=== PATIENT | female | born 1935 | race Caucasian/White ===

== ENCOUNTER 2023-04-27 05:58 | Day surgery (SDC) | payer OTHER, SELFPAY ==
[2023-04-22 13:04] VITALS: BMI 28.7
[2023-04-22 13:41] LABS: % Basophils 0.5 % (0-2); % Eosinophils 1.8 % (0-6); % Immature Granulocytes 0.3 % (0-0.5); % Monocytes 7.1 % (1.7-9.3); % Neutrophils 68.3 % (42.2-75.2); Absolute Eosinophils 0.1 10^3/uL (0-0.7); Absolute Lymphocytes 1.4 10^3/uL (1.2-3.4); Absolute Monocytes 0.4 10^3/uL (0.1-0.6); Absolute Neutrophils 4.2 10^3/uL (1.4-6.5); Hematocrit 34.3 % (37.0-47.0); Hemoglobin 11.5 g/dL (12.0-16.0); Mean Corp Hgb Conc. 33.5 g/dL (33.0-37.0); Mean Corpuscular Hgb 31.1 pg (27.0-31.0); Mean Corpuscular Volume 92.7 fL (81.0-99.0); Mean Platelet Volume 10.6 fL (7.4-10.4); Nucleated Red Blood Cells % 0 %; Platelet Count 223 10^3/uL (130-400); Red Cell Dist. Width 13.1 % (11.5-14.5); White Blood Cell Count 6.2 10^3/uL (4.8-10.8)
[2023-04-22 13:53] LABS: ALT (SGPT) 18 U/L (0-35); AST (SGOT) 33 U/L (14-36); Albumin 4.3 g/dl (3.5-5.0); Alkaline Phosphatase 84 U/L (38-126); Blood Urea Nitrogen 25 mg/dl (7-17); Calcium 9.4 mg/dl (8.4-10.2); Carbon Dioxide 31 mmol/L (22-30); Chloride 102 mmol/L (98-107); Estimated Creatinine Clearance 29 ml/min; Glucose 100 mg/dl (70-99); Potassium 4.1 mmol/L (3.5-5.1); Sodium 136 mmol/L (135-145); Total Bilirubin 0.7 mg/dl (0.2-1.3); Total Protein 6.9 g/dl (6.3-8.2); eGFR 36.87
[2023-04-27] VITALS (10 sets, daily range): BP systolic 91–163; BP diastolic 47–79; BMI 27.5
[2023-04-27] MEDS: NSS 231 ML IV (06:50)
[2023-04-27] MEDS: LOW STRENGTH ASPIRIN 81 MG PO (06:52)
[2023-04-27 07:16] LABS: Glucose - Point of Care 107 mg/dl (70-99)
--- NOTE | 2023-04-27 08:44 | ITS.CL.CATH ---
Marriage Counselor Minister - Catheterization
Cardiac Catheterization
Procedure Report:
CARDIAC CATHETERIZATION REPORT
Date of Procedure: 04/27/2023
Referring: Saeid Gilmore MD
Indication: Critical aortic stenosis
HEMODYNAMIC DATA
AO: 165/69
LV: 237/17
There is a 68 mmHg mean gradient across aortic valve
LEFT VENTRICULOGRAPHY: Not performed
CORONARY ANGIOGRAPHY
Dominance: Right
Left Main: Mild calcification at the ostium with mild ostial tapering. There is no pressure dampening upon engagement with a 5 Kosovan diagnostic JL 4
LAD: 40% mid LAD stenosis spanning the takeoff of the moderate-sized D2 and D3 branches. The remainder of the LAD system has trivial luminal disease
Circumflex: Normal
RCA: Mild ostial tapering with no dampening on engagement with a 5 Kosovan JR4. The large dominant RCA system has mild luminal irregularities
Closure Device: None-the procedure was performed via the right radial artery. The Garrett's test was normal prior to the procedure
Radiation (mGy): 121
DAP (cm2.Gy): 9.3
Fluoroscopy time: 3.4 minutes
CONCLUSIONS
1: Critical aortic stenosis with mean gradient 68 mmHg
2: Mild noncritical CAD
3. Proceed with evaluation for TAVR
Copy to: Saeid Gilmore MD, Radha Vasquez,
Joni Nash MD, [facility], [facility]
--- NOTE | 2023-04-27 09:27 | CONSULT.STRU ---
Addendum entered and electronically signed by MALIK Murrieta 06/18/23 07:47:
Reviewed Ms. bAdi with the heart team and the team is agreeable to proceed with a 26 mm S3 via (R) TF access. Will schedule.
Original Note:
Consultation
-
Date/Time Consultation Requested: 04/27/2023 0831
Date/Time Consultation Performed: 04/27/2023 0930
Requesting Provider: Joni Nash MD
Performing Provider: MALIK Murrieta
Reason for Consultation: / TAVR
Patient History
Physicians
Family Physician: Radha Vasquez DO
Outpatient Expansion Joint Builder: Saeid Gilmore MD
Primary Expansion Joint Builder: Saeid Gilmore MD
History of Present Illness
Ms. Abdi is an 87 yof that presents with severe aortic stenosis as evidenced by echocardiogram (04/14/2023). EF 65-70%, AV P/M 82/61, KENDRA 0.5, no AI, moderate MAC with no MR, PAP 27mmHg. Patient states she occasionally experiences dizziness, she
denies SOB and Fatigue. Ms. Abdi explains she is the primary caregiver for her and feels that she is completed the same tasks she was one year ago without any increase in fatigue or SOB.
Discussed the pathophysiology and treatment options of aortic stenosis including SAVR and TAVR. Explained the evaluation process comprising of CT surgical consult, CT scan, dental clearance, and a heart team discussion. Prescriptions, appointments,
TAVR booklet, and contact information given to patient and son. Allowed for and answered questions at bedside.
Past Medical History
Past Medical History: Atrial Fib (PAF C2V: 5), CAD (hx of NV (over 20 years ago)), CHF (HFpEF), GERD, HTN, NIDDM, MARYANN, Valvular Disease (severe aortic stenosis) and Other (pericardial effusion, anemia, vitamin B12 deficiency, breast adenocarcinoma,
depression, anxiety, osteoarthritis of bilateral knees)
Past Surgical History
Past Surgical History: Mastectomy (bilateral + radiation) and Other (PPM (dual chamber) 01/2023, [facility])
Dental History
Ms. Abdi has not been to a dentist in a long time. She will need to find a dentist. She will bring dentist name when she comes for CT surgical consult.
Family History
Mother: at Age (80) and Cause of (CVA)
Father: at Age and Cause of (Alzheimer's)
Social History
Alcohol: None
Drug: None
Tobacco: Non-Smoker
Personal:
Living: With Spouse
Allergies
Allergy/AdvReac Type Severity Reaction Status Date / Time
No Known Allergies Allergy Unverified 04/19/23 13:43
Home Medications
Medication Instructions Recorded Confirmed Type
Vitamin D3 1 dose PO DAILY 04/19/23 04/19/23 History
amiodarone 200 mg tablet 200 mg PO DAILY 04/19/23 04/27/23 History
apixaban 5 mg tablet (Eliquis) 5 mg PO BID 04/19/23 04/27/23 History
cyanocobalamin (vitamin B-12) 1 dose PO DAILY 04/19/23 04/19/23 History
furosemide 20 mg tablet 20 mg PO MOWEFR 04/19/23 04/27/23 History
isosorbide dinitrate 10 mg tablet 10 mg PO TID 04/19/23 04/27/23 History
magnesium 250 mg tablet 125 mg PO DAILY 04/19/23 04/27/23 History
metoprolol succinate 25 mg 25 mg PO DAILY 04/19/23 04/27/23 History
tablet,extended release 24 hr
pantoprazole 40 mg granules 40 mg PO DAILY 04/19/23 04/27/23 History
delayed-release for susp in packet
polyethylene glycol 3350 17 gram 17 g PO DAILY 04/19/23 04/27/23 History
oral powder packet (Miralax)
simvastatin 20 mg tablet 20 mg PO DAILY 04/19/23 04/27/23 History
mirtazapine 7.5 mg tablet 7.5 mg PO HS 04/27/23 04/27/23 History
STS%
STS %: 6.14
Review of Systems
-
History Source: Patient
General: Reports No Symptoms
HEENT: Reports No Symptoms
Respiratory: Reports No Symptoms
Cardiac: Reports No Symptoms
Abdomen/GI: Reports No Symptoms
: Reports No Symptoms
Skin: Reports No Symptoms
Neurological: Reports No Symptoms
Physical Exam
Vital Signs
Temp 98.1 F 04/27/23 06:53
Temp route: Oral 04/27/23 06:53
Pulse 60 04/27/23 09:00
Resp Rate 15 04/27/23 09:00
Blood pressure 141/50 04/27/23 08:59
Blood pressure extremity used: Left upper arm 04/27/23 08:28
Position: Lying 04/27/23 08:28
MAP (cuff-Lesley Monitor) 78 04/27/23 08:59
SaO2 100 04/27/23 09:00
Oxygen Mode of Delivery Room air 04/27/23 08:58
Can the patient verbally communicate their pain? Yes 04/27/23 09:13
Actual Weight 77.111 kg 04/27/23 06:50
Body Mass Index (BMI) 27.5 04/27/23 06:50
Labs
04/22/23 13:23
04/22/23 13:23
Diagnostic Studies
04/14/2023:
CONCLUSIONS
�1.� Normal LV function.� EF 65 to 70% with grade 1 diastolic dysfunction and
�mild concentric LVH.
�2.� Normal RV function
�3.� Severe aortic stenosis with peak transaortic gradient of 82 mmHg, mean
�gradient of 61 mmHg and a calculated aortic valve area 0.5 cm2.� There is no
�aortic insufficiency.
�4.� No other significant valvular disease detected.
�5.� Mild to moderate left atrial enlargement.
04/22/2023:
Vent. Rate : 060 BPM � � Atrial Rate : 060 BPM
�� P-R Int : 244 ms� � � � � QRS Dur : 158 ms
� � QT Int : 462 ms � � � P-R-T Axes : 091 -68 025 degrees
�� QTc Int : 462 ms
�
Atrial-paced rhythm with prolonged AV conduction
RIGHT BUNDLE BRANCH BLOCK
LEFT ANTERIOR FASCICULAR BLOCK
BIFASCICULAR BLOCK
ABNORMAL ECG
NO PREVIOUS ECGS AVAILABLE
05/02/2023:
CONCLUSIONS
1: Critical aortic stenosis with mean gradient 68 mmHg
2: Mild noncritical CAD
3.� Proceed with evaluation for TAVR
Exam
General: Well Developed
HEENT: Moist Mucous Membranes
Respiratory: Clear
Cardiac: Murmur (III/ YOYL)
GI: Soft and Non Tender
Rectal: Deferred by Provider
Skin: Warm and Dry
Neuro: Awake, Alert and Oriented
Psych: Calm
Assessment / Plan
-
Aortic stenosis
Continue with TAVR evaluation.
Trend creatinine (RX given)
CT surgical consult (MPT 05/04)
KCCQ12 and 5m gait at consult
CT TAVR (Split with OID d/t RI)-chest 05/20
Will discuss timing to hold Eliquis for TAVR. While held will take aspirin
Dental clearance-will need to find a dentist
Heart team discussion.
Data Reviewed
-
EKG: Report Reviewed by me (A-paced)
Assembler Piano: Report Reviewed by me
Echo: Report Reviewed by me
Total Time Spent with Patient (in minutes): 45
== END 2023-04-27 11:35 | disposition home or self-care (01) ==
LOC: CATH 05:58
PROVIDERS: ATTENDING PHYSICIAN Internal Medicine Cardiovascular Disease; FAMILY PHYSICIAN Internal Medicine; OTHER PHYSICIAN Internal Medicine Cardiovascular Disease
DX: E78.5 Hyperlipidemia, unspecified (principal); I48.0 Paroxysmal atrial fibrillation; I25.10 Atherosclerotic heart disease of native coronary artery without angina pectoris; Z79.01 Long term (current) use of anticoagulants; I44.30 Unspecified atrioventricular block; I13.0 Hypertensive heart and chronic kidney disease with heart failure and stage 1 through stage 4 chronic kidney disease, or unspecified chronic kidney disease; E11.22 Type 2 diabetes mellitus with diabetic chronic kidney disease; N18.30 Chronic kidney disease, stage 3 unspecified; I50.32 Chronic diastolic (congestive) heart failure; Z87.19 Personal history of other diseases of the digestive system; K21.9 Gastro-esophageal reflux disease without esophagitis; M19.90 Unspecified osteoarthritis, unspecified site; Z85.3 Personal history of malignant neoplasm of breast; F41.9 Anxiety disorder, unspecified; F32.A Depression, unspecified; Z79.82 Long term (current) use of aspirin; I25.84 Coronary atherosclerosis due to calcified coronary lesion
CPT/HCPCS: 36415; 80053; 82962; 85025; 93005; 93458; C1894; Q9967

== ENCOUNTER 2023-05-20 08:14 | Outpatient (RCR) | payer OTHER, SELFPAY ==
[2023-05-20 08:50] VITALS: BP 156/71
[2023-05-20] MEDS: NSS 500 IV (08:56)
[2023-05-20 09:02] VITALS: BMI 26.6
== END 2023-05-21 09:38 | disposition home or self-care (01) ==
LOC: OID 08:14
PROVIDERS: ATTENDING PHYSICIAN Nurse Practitioner Adult Health; FAMILY PHYSICIAN Internal Medicine
DX: I35.0 Nonrheumatic aortic (valve) stenosis (principal); Z92.89 Personal history of other medical treatment
CPT/HCPCS: 96360; 96361

== ENCOUNTER → 2023-05-20 08:37 | Outpatient (REF) | payer OTHER, SELFPAY | LOC: RAD 08:37 | PROVIDERS: ATTENDING PHYSICIAN Nurse Practitioner Acute Care | DX: I35.0 Nonrheumatic aortic (valve) stenosis (principal) | CPT/HCPCS: 75572; Q9967 ==

== ENCOUNTER 2023-06-17 08:12 | Outpatient (RCR) | payer OTHER, SELFPAY ==
[2023-06-17 08:20] VITALS: BP 157/71
[2023-06-17] MEDS: NSS 500 IV (08:28)
== END 2023-07-04 23:59 | disposition home or self-care (01) ==
LOC: OID 08:12
PROVIDERS: ATTENDING PHYSICIAN Nurse Practitioner Adult Health; FAMILY PHYSICIAN Internal Medicine
DX: I35.0 Nonrheumatic aortic (valve) stenosis (principal)
CPT/HCPCS: 74174; 96360; 96361; Q9967

== ENCOUNTER 2023-07-01 09:15 | Inpatient (IN) | payer OTHER, SELFPAY ==
--- NOTE | 2023-06-22 10:29 | HPS.HSE ---
Family Physician
-
Family Physician: Radha Vasquez
Chief Complaint
-
Occassional dizziness, LU associated with significantly elevated aortic valve MG 68mmHg by cardiac catheterization.
History of Present Illness
Ms. Abdi is an 87 yof that presents with severe aortic stenosis as evidenced by echocardiogram (04/14/2023). EF 65-70%, AV P/M 82/61, KENDRA 0.5, no AI, moderate MAC with no MR, PAP 27mmHg. Patient states she occasionally experiences dizziness, she
states she gets LU when she gets up at night to use the bathroom. Ms. Abdi explains she is the primary caregiver for her and feels that she is completing the same tasks she was one year ago without any increase in fatigue or SOB. Ms. Abdi
has been evaluated by the heart team and recommended for TF TAVR utilizing a 26 mm S3 via right transfemoral access.
Assessed Ms. Abdi in preadmission testing and confirmed medication list. Last dose of Eliquis will be Wednesday (06/27) pm dose (patient states she has been taking 2.5 mg Eliquis BID since ER visit after tooth extractions, reviewed with Dr. Nash.
Dosing appropriate for renal dose), she will continue 81 mg daily including the morning of TAVR (06/30). She will arrive to the [facility] at 07:30. Reviewed the risks of the procedure and discussed with Dr. Zuniga in consult including stroke and
vascular injury. Patient has a PPM. Informed Ms. Abdi she will receive a phone call from the heart team on Wednesday (06/29) to confirm time and location of arrival. Allowed for and answered questions
Medical History
Past Medical History
Past Medical History: Reports Arrhythmia (PAF), CAD (Hx of MD), GERD, HTN, NIDDM, Valvular Disease (severe ), Psychiatric (depression/Anxiety) and Other (hyperlipidemia, pericardial effusion, anemia, CKD 3, MARYANN, Vitamin B12 deficiency, colon
polyps, ambulatory dysfunction)
Past Surgical History: Reports Gynocological (bilateral mastectomies (XRT)) and Other (PPM (01/2023))
Social History
Tobacco: Non-smoker
Alcohol: None
Drug: None
Personal:
Living: With Family
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)
Family History
Family History: Other (Mother at 80-CVA)
Allergies / Home Medications
Allergies reflects when Allergies were last updated in [facility].
NKDA
Home Medications with original date entered in [facility]
Amiodarone HCl 200 MG Tablet 1 tablet Orally Once a day
B12
Eliquis(Apixaban) 5 MG Tablet 1 tablet Orally Twice a day--Patient has been taking 2.5 mg BID
Furosemide 20 MG Tablet 1 tablet Orally Wednesday, Wednesday, and Wednesday
Magnesium
Metoprolol Succinate ER 25 MG Tablet Extended Release 24 Hour 1 tablet Orally Once a Day
MiraLax(Polyethylene Glycol 3350) 17 GM Packet 1 packet mixed with 8 ounces of fluid Orally Once a day
Mirtazapine 7.5 MG Tablet 1 tablet at bedtime Orally Once a day
Pantoprazole Sodium 40 MG Tablet Delayed Release 1 tablet Orally Once a day
Simvastatin 20 MG Tablet 1 tablet in the evening Orally Once a day
Vitamin D3
Allergy/Medication List:
NKDA
Review of Systems
-
History Source: Patient
Constitutional: Reports No Symptoms
EENT: Reports No Symptoms
Respiratory: Reports Other (LU when she gets up at night to use the bathroom requiring the need to sit up for several minutes to recover.)
Cardiac: Reports No Symptoms
Abdomen/GI: Reports No Symptoms
: Reports No Symptoms
Musculoskeletal: Reports No Symptoms
Neurological: Reports No Symptoms
Hematologic/Lymphatic: Reports Bruising
Psych: Reports Calm
Physical Exam
Physical Exam
General: Well Developed and Well Nourished
HEENT: Moist mucous membranes
Respiratory: Clear
Cardiac: Murmur (III/ YOLY)
Breast: Deferred by me
GI: Soft and Non Tender
Rectal: Deferred by Provider
Genito-urinary: Deferred by me
Musculoskeletal: Edema, Left Lower Extremity (non-pitting) and Edema, Right Lower Extremity (non-pitting)
Skin: Warm and Other (bruising to right anterior hand)
Neuro: Awake and Alert
Psych: Calm
Data Reviewed
-
Diagnostic Radiology: Report Reviewed by me ( CXR)
CT Scan: Report Reviewed by me and Discussed with Physician (TAVR CT scan reviewed with the structural heart team)
Medical Tests (Nuc Med, Echo, EKG etc): Report Reviewed by me (echocardiogram and EKG) and Discussed with Physician (echocardiogram reviewed with the structural heart team)
Lab Data: Labs Reviewed by me and Discussed with Physician
Old Records: Reviewed (office notes, echocardiogram, cardiac catheterization reviewed with the structural heart team)
Impression/Plan
-
IMPRESSION/PLAN:
Aortic stenosis
TF TAVR planned via right TF access utilizing a 26mm S3
Hold Eliquis (last dose Tuesday 06/27 pm dose). Continue 81 mg aspiring including morning of TAVR. Resume Eliquis post TAVR
POD #05/04 echocardiogram
Cardiac rehab consult.
Labs
-
Labs:
WBC 5.2 10^3/uL (4.8-10.8) 06/23/23 12:20
RBC 3.34 10^6/uL (4.20-5.40) L 06/23/23 12:20
Hgb 10.3 g/dL (12.0-16.0) L 06/23/23 12:
Hct 31.6 % (37.0-47.0) L 06/23/23 12:20
Plt Count 219 10^3/uL (130-400) 06/23/23 12:20
Sodium 133 mmol/L (135-145) L 06/23/23 12:20
Potassium 4.4 mmol/L (3.5-5.1) 06/23/23 12:20
Chloride 100 mmol/L (98-107) 06/23/23 12:20
Carbon Dioxide 28 mmol/L (22-30) 06/23/23 12:20
BUN 22 mg/dl (7-17) H 06/23/23 12:20
Creatinine 1.4 mg/dL (0.6-1.0) H 06/23/23 12:20
eGFR 36.87 06/23/23 12:20
Glucose 95 mg/dl (70-99) 06/23/23 12:20
Calcium 9.5 mg/dl (8.4-10.2) 06/23/23 12:20
Grs-M-Voeizxdrcyi Pept 1930 pg/ml 06/23/23 12:20
Albumin 4.3 g/dl (3.5-5.0) 06/23/23 12:20
[2023-06-23 11:58] VITALS: BMI 27.3
[2023-06-23 12:49] LABS: % Basophils 0.4 % (0-2); % Eosinophils 1.3 % (0-6); % Immature Granulocytes 0.4 % (0-0.5); % Lymphocytes 22.1 % (20.5-51.1); % Monocytes 7.1 % (1.7-9.3); % Neutrophils 68.7 % (42.2-75.2); Absolute Eosinophils 0.1 10^3/uL (0-0.7); Absolute Lymphocytes 1.2 10^3/uL (1.2-3.4); Absolute Monocytes 0.4 10^3/uL (0.1-0.6); Absolute Neutrophils 3.6 10^3/uL (1.4-6.5); Hematocrit 31.6 % (37.0-47.0); Hemoglobin 10.3 g/dL (12.0-16.0); Mean Corp Hgb Conc. 32.6 g/dL (33.0-37.0); Mean Corpuscular Hgb 30.8 pg (27.0-31.0); Mean Corpuscular Volume 94.6 fL (81.0-99.0); Mean Platelet Volume 10.3 fL (7.4-10.4); Nucleated Red Blood Cells % 0 %; Platelet Count 219 10^3/uL (130-400); Red Blood Cell Count 3.34 10^6/uL (4.20-5.40); Red Cell Dist. Width 13.2 % (11.5-14.5); White Blood Cell Count 5.2 10^3/uL (4.8-10.8)
[2023-06-23 12:58] LABS: ALT (SGPT) 14 U/L (0-35); AST (SGOT) 31 U/L (14-36); Albumin 4.3 g/dl (3.5-5.0); Alkaline Phosphatase 96 U/L (38-126); Blood Urea Nitrogen 22 mg/dl (7-17); Calcium 9.5 mg/dl (8.4-10.2); Carbon Dioxide 28 mmol/L (22-30); Chloride 100 mmol/L (98-107); Direct Bilirubin 0.1 mg/dl (0.0-0.4); Estimated Creatinine Clearance 30 ml/min; Glucose 95 mg/dl (70-99); INR 1.16; PT 14.9 Sec (11.4-14.6); Potassium 4.4 mmol/L (3.5-5.1); Sodium 133 mmol/L (135-145); Total Bilirubin 0.7 mg/dl (0.2-1.3); eGFR 36.87
[2023-06-23 12:59] LABS: APTT 33.1 Sec (23.4-35.0)
[2023-06-23 13:04] LABS: Urine Albumin Negative (Neg - Trace); Urine Bilirubin 1+ (Negative); Urine Character Clear (Clear); Urine Color Yellow; Urine Glucose Negative (Negative); Urine Ketone Negative (Negative); Urine Leukocyte Trace (Negative); Urine Nitrite Negative (Negative); Urine Occult Blood Negative (Negative); Urine Urobilinogen Negative (Neg - 1+)
[2023-06-23 13:48] LABS: NT-proBNP 1930 pg/ml
[2023-06-23 14:03] LABS: Urine Red Blood Cell 0-2 /HPF (0-2)
--- NOTE | 2023-06-23 14:21 | CM ---
Met with Mrs. Abdi in [facility] She states prior to admission she resides with her spouse in a one story home with a ramp. She states prior to admission she was independent with ambulation and adls. She states she does not have any DME in the home.
She states she has a prescription plan and uses [facility]. She states her spouse will be home but she takes care of him. She states she has a very supportive son. The discharge plan is to return home with her spouse and a home visit by the
Cardiothoracic Transitional Care Nurse when medically stable.
We reviewed pre-op and post-op routines. We reviewed the shower instructions. She has the soap, written instructions and the TAVR Booklet. We also discusses restrictions including driving and lifting restrictions. We discussed a home visit by
the Cardiothoracic Transitional Care Nurse or [facility]. She is agreeable to a home visit. The plan is for TAVR on June.
[2023-06-23 14:30] LABS: Glycohemoglobin (HgbA1c) 5.2 % (4.0-5.6)
[2023-07-01] VITALS (25 sets, daily range): BP systolic 103–179; BP diastolic 42–71; BMI 28.8
--- NOTE | 2023-07-01 10:26 | PTCARENOTE ---
bp in left arm taken. unable to take bp in right arm due to limb alert
--- NOTE | 2023-07-01 12:10 | W.CVOR.SURPR ---
CVOR Surgeon Immed Pre Op
-
I have examined this patient prior to performance of the scheduled procedure.
The patient's condition is unchanged from the time of the dictated/written History and
Physical and the patient is able to undergo the scheduled procedure.
TF TAVR
Full Rescue
--- NOTE | 2023-07-01 14:39 | CM ---
Reviewed chart. Mrs. Abdi is in the operating room today. Prior to admission she resides with her spouse in a one story home with a ramp. Prior to admission she was independent with ambulation and adls. She does not have any DME in the home. She
has a prescription plan and uses [facility]. She states her spouse will be home but she takes care of him. She states she has a supportive son. Medical work-up in progress. The discharge plan is to return home with her spouse and a home
visit by the Cardiothoracic Transitional Care Nurse when medically stable.
[2023-07-01] MEDS: ANCEF 10 IV (15:40)
[2023-07-01 16:44] LABS: ACT-LR - POC 316 Seconds (116-155)
--- NOTE | 2023-07-01 17:08 | W.PN.CT.SURG ---
CT Surgery Operative Note
-
OPERATIVE REPORT
Preoperative Diagnosis: Severe aortic valve stenosis, symptomatic
Postoperative Diagnosis: Same
Procedure(s) Performed: Right trans femoral TAVR with a 26 mm Stover TAVR valve with balloon valvuloplasty
Date of Procedure: 07/01/2023
Comorbidities:
1. Severe aortic stenosis, symptomatic
2. Atrial fibrillation
3. Hyperlipidemia
4. Hypertension
5. History of CAD
6. Anxiety and depression
7. Diabetes
8. Baseline anemia
9. Chronic congestive heart failure
10. CKD 3
11. History of breast cancer
Cardiac Surgeon: Ahmet George MD, MS
Pecan Gatherer: Nicholas Nash MD
Anesthesia: Conscious Sedation and Local Analgesia
EBL: 150cc
Products: none
Implant: 26mm STOVER Annabella Ultra Valve, SN: [id number]
Indication(s) for Procedures: 87-year-old female with symptomatic severe aortic stenosis. CT-TAVR protocol revealed acceptable anatomy for TAVR access and implantation. She was seen by cardiology, interventional cardiology, and cardiac surgery also
reviewed in a multidisciplinary team setting. Consensus is to move forward with transcatheter intervention given her high risk for surgical intervention.
Start time: 1608hrs
Deployment time: 1652hrs
End time: 1703hrs
Radiation Dose (mGy): 265.54
DAP (cm2.Gy): 26.8487
Fluoroscopy time (minutes): 13.8
Contrast volume (ml): 77
TAVR gradient (mmHg): 7mmHg
Heparin Dose: 6000units
Protamine Dose: 30mg
Final Valve Positionin/10
Findings: Preoperative LVEF was 60% and was 60% following TAVR without inotropic support. Function was overall normal without regional wall motion abnormalities or dyskinesia. The aortic valve was well seated without detectable PVL and mean gradient
across the new valve was 7mmHg. following a rapid pacing and: The TAVR valve she returned back to her [place] rhythm, has previous implant of a permanent pacemaker. There was successful placement of 26mm TAVR valve without acute complications.
Access:
1. Device - right common femoral artery, perclose x 2
2. Pigtail - left common femoral artery [+ 6Fr angioseal]
3. Transvenous Pacer - left common femoral vein
Description of Procedure: The patient was taken to the drop crew laborer. Their identity and procedure to be performed were verified and they were positioned supine on the drop crew laborer table. Induction via conscious sedation. The patient was then prepped and
draped from chin to thigh in a sterile fashion. A preoperative time-out was performed with all members of the team present. Arterial and venous access was performed using fluoroscopy and micropuncture and Seldinger technique. Two perclose devices
were used on the device side followed by access to the aorta with a stiff wire to facilitate E-sheath placement. Heparin was given. A stiff straight wire and AL-1 catheter was used to cross the aortic valve. The stiff wire was exchanged for an
extra stiff coiled tip wire. The valve was prepped and mounted on to the device carrier. An ACT of >250 was achieved. We verified x 3 that the valve was mounted in the correct orientation with the skirt of the valve directed toward the tip of the
device carrier. Under rapid pacing, a 20 Z-Med balloon was used for balloon valvuloplasty. We advanced the device into the descending thoracic aorta where the valve was them mounted onto the balloon under fluoroscopy. The device was flexed and
advanced over the arch into the root and positioned across the aortic valve. Contrast fluoroscopy was used to visualize the prosthesis across the valve and to guide positioning. A pigtail catheter in the RCC as used as a guide. We aimed to have the
bottom of the device marker at the annular hinge point. The device sheath was pulled back. We performed a quick pre-deployment time out. The pacer was turned on and had capture. Blood pressure fell accordingly, angiography was done to verify the
intended final placement and the valve was deployed with 5 seconds of rapid pacing to nominal volume. The balloon was deflated and the pacer was turned off. We had recovery of vitals. The device carrier was unflexed and positioned back in the
descending thoracic aorta. A transthoracic echocardiogram was performed. The device was removed from the E-Sheath maintaining wire access followed by removal of the E-sheath as we cinched down the perclose devices. There was acceptable hemostasis.
The pigtail was withdrawn into the descending/abdominal and completion aortogram with runoff run-off angiography was performed. There was no stenosis or dissection of bilateral iliofemoral systems. There was acceptable hemostasis of bilateral groins
and manual pressure was held following wire removal. Low dose protamine was administered after checking another ACT.
All instrument, sponge, and needle counts were confirmed to be correct x 2 at the end of the operation. The patient was transferred to the cardiac intensive care unit in stable condition.
I, Dr. Ahmet George, was present, scrubbed for, and performed all critical elements of this procedure.
Ahmet George MD
Cardiothoracic Surgeon
[facility]
This operative dictation was created using the [employer] dictation system. Please excuse any grammatical, typographical, or 'sound alike' errors
--- NOTE | 2023-07-01 17:16 | ITS.CL.TAVR ---
Postal Service Window Clerk - TAVR Report
TAVR PRocedure
Procedure Report:
TRANSCATHETER AORTIC VALVE REPLACEMENT REPORT
Date: 07/01/2023
Referring physician: Saeid Gilmore MD
Operators:
edi programmer: Joni Nash MD
Cardiac surgeon: Ahmet George MD
Procedure:
Conscious sedation was provided by anesthesia. Using a micropuncture technique, 6F sheaths were placed in the LFA and LFV. A transvenous pacemaker was advanced to the RV and excellent thresholds obtained. A pigtail catheter was advanced to the
aortic root where low volume injections were performed to identify an appropriate angle for valve deployment deployment. Access was then obtained in the right femoral artery using a micropuncture technique. A 6Fsheath was placed and angiography
confirmed a WEB PAGE DESIGNER puncture site. Heparin 2000 units was administered. Two perclose sutures were preset using the preclose technique. An 8F sheath was placed in the LFA and an Amplatz super stiff wire advanced into the thoracic aorta. The ileofemoral
vessels were dilated using the Álvarez dilator. An Álvarez E sheath was advanced into the descending thoracic aorta. Additional heparin 3000 units was administered. The valve was crossed using a diagnostic 6F AL1 catheter and a straight wire. An
Amplatz extra stiff wire with a homemade curve was placed in the LV apex. Balloon aortic valvuloplasty was performed using a 20 mm Z-Med balloon during rapid ventricular pacing. The patient's hemodynamics recovered quickly following BAV. An Álvarez
26 mm Annabella S3 valve was then advanced through the E sheath and prepared for transit around the aortic arch. The valve was carefully advanced across the aortic annulus and deployed during rapid ventricular pacing. Echocardiography and aortography
confirmed an excellent result with mean gradient 7 mmHg and no aortic insufficiency. The valve deployment system was removed. The Álvarez E sheath was then removed and hemostasis obtained with the two perclose sutures. Final angiography demonstrated
no evidence of ileofemoral dissection/perforation and good runoff below the common femoral artery. The pacemaker was removed and the LFV removed with manual compression. The LFA sheath was removed using a 6 F angioseal.
Radiation (mGy): 265
DAP (cm2.Gy)): 26.8
Fluoroscopy time: 13.8 minutes
Conclusions: Successful placement of 26 mm Annabella S3 aortic valve via right transfemoral approach with no acute complications.
Copy: Saeid Gilmore MD, Radha Vasquez DO
--- NOTE | 2023-07-01 17:52 | PTCARENOTE ---
Patient received from laborer car barn with anesthesia and laborer car barn RN. Patient is alert and oriented x4, slightly drowsy. Denies pain/discomfort. 100% A/V paced. HR 60. BP 149/56 on arrival. Levo gtt received at 5mcgs/min. Started to wean levo gtt
downwards. KVO to gravity. PIV maintained. Palpable pulses, weak dorsalis pedal pulses. 4L NC maintained. Oxygen saturation 100%. Abdomen round. RFA valve deployment dressing has a little bit of shadowing, that RN marked. LFA/LFV dressing is clean,
dry, intact. Complete bedrest s/p TAVR. Assist x2 to turn/reposition. New monitor leads and new gown placed on patient. Will continue to monitor.
--- NOTE | 2023-07-01 18:07 | PTCARENOTE ---
CBC sent (difficult to obtain). RFA groin puncture site is slowly oozing with shadowing covering the 4x4 gauze dressing. CV HEAD STILL OPERATOR notified and assessed the site at bedside. She placed pressure on the RFA groin site for 20min then placed a new dressing.
[2023-07-01 18:28] LABS: Mean Corp Hgb Conc. 32.8 g/dL (33.0-37.0); Mean Corpuscular Hgb 31.7 pg (27.0-31.0); Mean Corpuscular Volume 96.6 fL (81.0-99.0); Mean Platelet Volume 10.2 fL (7.4-10.4); Platelet Count 102 10^3/uL (130-400); Red Blood Cell Count 2.08 10^6/uL (4.20-5.40); Red Cell Dist. Width 12.9 % (11.5-14.5); White Blood Cell Count 3.4 10^3/uL (4.8-10.8)
[2023-07-01 18:31] LABS: Hematocrit 20.1 % (37.0-47.0); Hemoglobin 6.6 g/dL (12.0-16.0)
[2023-07-01] MEDS: ANCEF IV (18:43)
--- NOTE | 2023-07-01 19:19 | PTCARENOTE ---
Hgb 6.6 - CV WINE STEWARD/STEWARDESS notified. Dr. George wants a CT scan of the chest, abdomen, pelvis. Transported patient with nightshift RN. Upon arriving back to the unit, 40mg IV Lasix administered by nightshift RN. Handoff report given.
[2023-07-01] MEDS: LASIX 40 MG IV (19:28)
--- NOTE | 2023-07-01 20:15 | PTCARENOTE ---
Patient transported via bed to and from CT ABD/Pelvis without difficulty - No Retroperitoneal Hemorrhage. Patient resting in bed. Patient A+A+Ox3. No neurological deficits noted. No c/o headache, dizziness or lightheadedness. Patient able to
move all extremities without difficulty. No c/o pain or discomfort. No s/s of respiratory distress. Room air. SaO2 99%. Permanent pacemaker. AV Pacing. Heart rate 60. Blood pressure 136/63 (85). No c/o chest pain, pressure or discomfort.
Normoactive bowel sounds. No BM. Positive flatus. External Urinary Device (PureWick) intact. IV Lasix 40 mg administered - Output 1400 ml yellow urine. Right groin dressing with area of shadowing - No hematoma noted - Positive circulation,
sensation and mobility to right lower extremity - Positive, palpable Dorsalis pedis pulse. Left groin/lower ABD dressing intact - No hematoma, bleeding or oozing noted - Positive circulation, sensation and mobility to left lower extremity -
Positive, palpable Dorsalis pedis pulse. Patient with no c/o back or flank pain. Resting in bed watching television. Assessment as documented.
[2023-07-01 22:22] LABS: Hematocrit 26.1 % (37.0-47.0); Hemoglobin 8.9 g/dL (12.0-16.0); Platelet Count 151 10^3/uL (130-400)
[2023-07-01] MEDS: REMERON 7.5 MG PO (22:29)
--- NOTE | 2023-07-01 22:30 | PTCARENOTE ---
H+H lab collected and sent. Hgb 8.9 Hct 26.1 Plt 151. Patient resting in bed watching television. No c/o pain or discomfort. Patient ate some applesauce without difficulty. Remains on bedrest. Assessment as documented.
[2023-07-02] VITALS (9 sets, daily range): BP systolic 102–165; BP diastolic 43–88; PULSE 60; O2SAT 99–100; BMI 27.6
[2023-07-02] MEDS: ANCEF 5 IV (00:23)
[2023-07-02] MEDS: TYLENOL 650 MG PO (00:23)
--- NOTE | 2023-07-02 01:00 | PTCARENOTE ---
Patient A+A+Ox3. No neurological deficits noted. PA for CT Surgery, Bailey Rosen PA-C, redressed right groin site. Patient given CHG bath and linens changed. External Urinary Device removed. Pad saturated with urine. Patient assisted to
bedside commode to void. Minimal assistance. Steady gait. Patient voided 400 ml yellow urine. Patient back to bed. Assessment as documented.
--- NOTE | 2023-07-02 05:16 | W.PN.CT ---
Today's Communication / Plan
-
-pod #1
-very pleasant, A&O x4, wants to go home
-diuresed over 2000cc (some unmeasured d/t incontinence) with 40 iv Lasix last night and H/h improved. Pt was hemodynamically stable overnight. Did not require any Levo
-am CBC and BMP pending
-av-paced @60 bpm
-Echo today
-follow h/h
-current meds: Eliquis, Amio, Lipitor, Lasix 20 on MWF, Toprol. Started Vit C and iv Iron for anemia
-encourage IS, OOB, ambulate
-appreciate everyone's input
Assessment / Plan
-
- Severe symptomatic - s/p Right trans femoral TAVR with a 26 mm Álvarez TAVR valve with balloon valvuloplasty on 07/01/23, pod #1
- Preop LVEF was 60% and was 60% following TAVR without inotropic support, no regional wma or dyskinesia. The aortic valve was well seated without detectable PVL and mean gradient across the new valve was 7mmHg
- Paroxysmal atrial fibrillation- on Eliquis and Amio preop
- Hyperlipidemia
- Hypertension
- Permanent pacer for CHB
- History of CAD, hx [place]
- Hx pericardial effusion
- Anxiety and depression
- Diabetes (HgA1c 5.2)
- Baseline anemia
- Chronic diastolic congestive heart failure
- CKD 3b (baseline Cr 1.4)
- GERD
- MARYANN
- B12 deficiency
- History of breast cancer- s/p b/l mastectomy and XRT 35 yrs ago
- Ambulatory dysfunction
- Acute postop blood loss anemia with likely dilutional component- no retroperitoneal bleed, hemodynamically stable, h/h improved with diuresis
Chest/abd/pelvis CT 07/01/23:
1).There is hazy soft tissue in the subcutaneous fat of both inguinal regions likely representing bruising and inflammatory change from recent catheterization
There is mild similar hazy stranding around the left external iliac vessels consistent with inflammatory stranding and minimal hemorrhage.
There is no significant retroperitoneal hemorrhage
2). Nonurgent findings include:
-Multilevel degenerative disc disease with grade 1 spondylolisthesis of L4 on L5
-Atherosclerosis
-TAVR type aortic valve prosthetic aortic valve
-Left transvenous pacemaker
-Minimal pleural-parenchymal scarring at the posterior aspect of both lung
Discussed patient care with: Nursing and Care Team
Subjective
Procedure
s/p Right trans femoral TAVR with a 26 mm Álvarez TAVR valve with balloon valvuloplasty on 07/01/23
-
Date of Service: July 01, 2023
Objective Data
-
Lab Results
07/01/23 22:13
06/23/23 12:20
PT 14.9 Sec (11.4-14.6) H 06/23/23 12:20
INR 1.16 06/23/23 12:20
APTT 33.1 Sec (23.4-35.0) 06/23/23 12:20
Vital Signs
Vital Signs
Temp Pulse Resp BP Pulse Ox
97.8 F 60 17 152/53 97
07/01/23 20:00 07/01/23 23:15 07/01/23 23:15 07/01/23 23:00 07/01/23 23:15
CT Intake/Output/Weight
07/01/23 07/01/23 07/02/23
06:59 18:59 06:59
Intake Total 280.2 / 280.2 0 / 280.2
Output Total 250 / 1850 1600 / 1850
Balance 30.2 / -1569.8 -1600 / -1569.8
SaO2: 97
Physical Exam
-
General: Awake and AOx3
Cardiovascular: Regular rate & rhythm, Murmur (04/10 systolic @ lsb) and Other (s/p b/l mastectomy)
Respiratory: Clear and Decreased Breath Sounds
Incision: Other (groins are cdi b/l, soft, no hematoma b/l)
Extremities: Other (trace edema/ venostasis b/l)
Data Reviewed
-
Lab Results: Results Reviewed
Medications: Active Meds Reviewed
Chest X-Ray: Report Reviewed and Image Reviewed
ECG: Report Reviewed and Image Reviewed
[2023-07-02 05:46] LABS: Hematocrit 28.9 % (37.0-47.0); Hemoglobin 9.6 g/dL (12.0-16.0); Mean Corp Hgb Conc. 33.2 g/dL (33.0-37.0); Mean Corpuscular Hgb 31.2 pg (27.0-31.0); Mean Corpuscular Volume 93.8 fL (81.0-99.0); Mean Platelet Volume 10.3 fL (7.4-10.4); Platelet Count 149 10^3/uL (130-400); Red Blood Cell Count 3.08 10^6/uL (4.20-5.40); Red Cell Dist. Width 12.8 % (11.5-14.5); White Blood Cell Count 5.1 10^3/uL (4.8-10.8)
--- NOTE | 2023-07-02 06:00 | PTCARENOTE ---
Patient A+A+Ox3. No neurological deficits noted. Patient ambulated to bathroom to void with minimal assistance. Voided 350 ml yellow urine. Standing scale weight 72.9 kg. Patient back to bed. EKG completed. Portable CXR completed. AM lab
work collected and sent. Hgb 9.6 Hct 28.9 Plt 149. Bilateral groins intact - No hematoma, bleeding or oozing - Positive circulation, sensation and mobility - Positive, palpable pulses. Assessment/Interventions as documented.
[2023-07-02 06:02] LABS: Blood Urea Nitrogen 25 mg/dl (7-17); Calcium 9.3 mg/dl (8.4-10.2); Carbon Dioxide 28 mmol/L (22-30); Chloride 101 mmol/L (98-107); Estimated Creatinine Clearance 37 ml/min; Glucose 102 mg/dl (70-99); Potassium 4.5 mmol/L (3.5-5.1); Sodium 134 mmol/L (135-145); eGFR 49.24
[2023-07-02 07:43] LABS: ACT-LR - POC > 397 Seconds (116-155)
--- NOTE | 2023-07-02 08:28 | W.PN.ANS.POP ---
Anesthesia Post Operative
- Anesthesia Post Op Note
Vital Signs Stable-See Nursing Note: Yes
Airway Patent: Yes
Adequate Pain Control: Yes
Change in Mental Status: No
Current Postoperative Nausea & Vomiting: No
Anesthesia Complications: No
General Anesthetic Recall: No
Unplanned Admission: No
Post Op Hydration Adequate: Yes
--- NOTE | 2023-07-02 08:44 | W.DCSUMMARY ---
Discharge Summary
Discharge Data
Date of Admission: 07/01/23
Date of Discharge: 07/02/23
Total time spent discharging patient (in min): 35
-
Pending Results: No
Hospital Course
Primary care physician:
Dr. Radha Vasquez MD.
Outpatient technical asst:
Dr. Saeid Gilmore MD.
Inpatient consultants:
[facility]
Procedures:
1. Right transfemoral transcatheter aortic valve replacement with number 26 millimeter Álvarez ESTEFANY valve with balloon valvuloplasty
Primary Diagnosis:
1. Severe aortic valve stenosis, symptomatic
Secondary Diagnoses:
1. Severe aortic stenosis, symptomatic
2. Atrial fibrillation, paroxysmal
3. Hyperlipidemia
4. Hypertension
5. History of coronary artery disease
6. Anxiety and depression
7. Jis-tralcbc-kjxetgrnj diabetes mellitus type 2
8. Baseline anemia
9. Chronic combined congestive heart failure
10. Chronic kidney disease stage III
11. History of breast cancer status post bilateral mastectomy and radiation therapy 35 years ago
12. History of pericardial effusion
13. History of myocardial infarction
14. Gastroesophageal reflux disease
15. Obstructive sleep apnea
16. Vitamin B12 deficiency
17. Osteoarthritis in bilateral knees
18. Complete heart block status post permanent pacemaker implantation
19. Ambulatory dysfunction
HPI:
Patient is an extremely pleasant 87-year-old female who was seen as an outpatient in consultation by attending physician Dr. Ahmet George MD., as well as the transcatheter aortic valve replacement team. She was deemed an appropriate
candidate to undergo transcatheter aortic valve replacement.
Hospital course:
She presented electively as an outpatient on the date described above for the procedure described above. Procedure was performed in the [employer] under conscious sedation. Patient overall tolerated the procedure well. Patient required pressor
support with levo at 6 intra and postop. She was also given a liter of crystalloid as well as albumin. She was transferred to the cardiovascular intensive care unit where her levo was weaned off. Postop labs revealed a drop of hemoglobin and
hematocrit from 10-6.6. Stat CT of the chest abdomen and pelvis was ordered to rule out retroperitoneal bleed. CT scan of the chest abdomen and pelvis were negative. The patient was aggressively diuresed and the patient's hemoglobin improved from
6.6, to 8.9, to 9.6 the following morning.
On postoperative day 1 the patient was doing well. Morning EKG revealed AV dual paced rhythm via PPM at 60 bpm. No significant change from prior EKGs. Hemoglobin as mentioned above was 9.6. Patient's case was reviewed on morning rounds with
attending physician and cardiology. She will continue aspirin 81 mg daily, and Eliquis 5 mg twice daily. Postoperative day 1 echocardiogram reveals a #26 Álvarez transcatheter aortic valve well-seated with a peak gradient of 23 and millimeters of
mercury and a mean gradient of 14 mmHg. No aortic insufficiency seen. Prior TAVR gradients on postoperative day 0 or peak gradient of 12 mmHg and mean gradient of 7 mmHg. Patient was medically cleared to be discharged to home on postoperative day
#1
Home medication changes:
Take acetaminophen 650 mg every 4 hours as needed for mild to moderate pain control, fever
Take vitamin C 1000 mg daily for 14 days and then stop unless instructed otherwise for postoperative acute blood loss anemia
Take ferrous sulfate 325 mg daily for 14 days and then stop unless instructed otherwise for postoperative acute blood loss anemia
Discharge Plan
-
Patient Disposition: Home (Routine Discharge)
Discharge Diagnosis/Procedures: TF TAVR
Diet: Low Fat, Low Cholesterol and 2 Gram Sodium
Activity: As tolerated
Driving Restrictions: No driving for 1 week
Bathing Restrictions: OK to Shower
Others Tests: Please call Dr. Gilmore's office to schedule your follow up echocardiogram to be completed one month from procedure.
Other Services: Cardiac Rehab
Wound Care: No lotions, creams, or powders to puncture sites
Specialty Instructions: Weigh Daily- Call MD for wt gain/loss 3 lbs overnight/5 lbs in 1 week
Stand Alone Forms: DC Inst - TransFemoral (TAVR)
Referrals:
CT Transitional Care Nurse [Outside] - in one to two days
(
The Cardiothoracic Transitional Care Nurse will call you to set up a visit in 1-2 days.)
Radha Vasquez DO [Family Provider] - in four to six weeks (Please make an appointment in four to six weeks.)
Saeid Gilmore MD [Active] - 07/27/23 1:40 pm
Additional Discharge Medication Instructions: Take acetaminophen 650 mg every 4 hours as needed for mild to moderate pain control, fever
Take vitamin C 1000 mg daily for 14 days and then stop unless instructed otherwise for postoperative acute blood loss anemia
Take ferrous sulfate 325 mg daily for 14 days and then stop unless instructed otherwise for postoperative acute blood loss anemia
Prescriptions:
New
ascorbic acid (vitamin C) [Vitamin C] 500 mg Tablet
1,000 mg PO DAILY Qty: 28 0RF
Rx Instructions:
Take 2 tabs (1000 mg) once daily for 14 days and then stop unless instructed otherwise
acetaminophen 325 mg Tablet
650 mg PO Q4HPRN PRN (Reason: ZHOU, mild pain, or fever >101F) Qty: 0 0RF
Rx Instructions:
Please purchase over the counter
ferrous sulfate 325 mg (65 mg iron) tablet
325 mg PO DAILY Qty: 14 0RF
Rx Instructions:
Take one tab daily for 14 days and then stop unless instructed otherwise
Continued
polyethylene glycol 3350 [Miralax] 17 gram Powder In Packet
17 g PO DAILY
amiodarone 200 mg Tablet
200 mg PO DAILY
simvastatin 20 mg Tablet
20 mg PO DAILY
magnesium 250 mg Tablet
125 mg PO DAILY
furosemide 20 mg Tablet
20 mg PO MOWEFR
metoprolol succinate 25 mg Tablet Extended Release 24 Hr
25 mg PO DAILY
Eliquis 5 mg Tablet
5 mg PO BID
mirtazapine 7.5 mg Tablet
7.5 mg PO HS
aspirin 81 mg Capsule
81 mg PO DAILY
pantoprazole 40 mg Tablet,Delayed Release (Dr/Ec)
40 mg PO DAILY
Vitamin B-12
1 tab PO DAILY
Discharge Orders:
Discharge Patient (As Directed); Ordered 07/02/23
Ordered By: Amy Shannon
Care Plan Goals
Care Plan Goals:
Problem: Readiness for enhanced knowledge related to diagnosis and treatment plan
Goal: Understand your diagnosis and treatment plan needs, including medications if applicable.
Instructions: Know your diagnosis, underlying causes and treatment plan options, including medications if applicable. Consult with your health care team to learn about your diagnosis and treatment plan, including medications if applicable.
Discharge Date and Time
Print Language: TAMAZIGHT
--- NOTE | 2023-07-02 08:52 | CM ---
Reviewed chart. Met with Mrs. Abdi to Review dsicharge plans. She states she is feeling well and maybe able to go home soon. We reviewed a home visit by the Cardiothoracic Transitional Care Nurse. She is agreeable to a home visit. Prior to
admission she resides with her spouse in a one story home with a ramp to enter. Prior to admission she was independent with ambulation and adls. She does not have any DME in the home. Her spouse will be home, but she takes care of him. She has a
supportive son. She states her son will provide transportation home. She has a prescription plan and uses [facility]. Medical work-up in progress. The discharge plan is to return home with her spouse and a home visit by the
Cardiothoracic Transitional Care Nurse when medically stable.
[2023-07-02] MEDS: PROTONIX 40 MG PO (08:55)
[2023-07-02] MEDS: MAGNESIUM OXIDE 125 MG PO (08:55)
[2023-07-02] MEDS: VITAMIN C 1000 MG PO (08:56)
[2023-07-02] MEDS: LIPITOR 10 MG PO (08:56)
[2023-07-02] MEDS: PACERONE 200 MG PO (08:56)
[2023-07-02] MEDS: VITAMIN B-12 1000 MCG PO (08:56)
[2023-07-02] MEDS: TOPROL XL 25 MG PO (08:56)
[2023-07-02] MEDS: THERAGRAN 1 TABLET PO (08:56)
[2023-07-02] MEDS: MIRALAX 17 GRAMS PO (09:00)
[2023-07-02] MEDS: LASIX 20 MG PO (09:10)
[2023-07-02] MEDS: FERRLECIT 110 MG IV (09:11)
--- NOTE | 2023-07-02 09:17 | W.PN.CD ---
Today's Communication / Plan
-
patdanien feels well
cath sites are fine
await echo
Impression / Plan
-
87 year old with histroy fo severe , PPM, PAF, CAD , HTN, hypercholesterolemia who had a TAVR 07/02/23
s/p Right trans femoral TAVR with a 26 mm Álvarez TAVR valve with balloon valvuloplasty on 07/01/23, pod #1
PPM - stable AV paced
CAD - stable without angina
PAF - AV paced
- resume Eliquis
anemia - intial drop in Hb ( ? accuracy of result) .Hb number has improved. Monitor
Physical Exam
Vital Signs/Labs
Vital Signs
Temp Pulse Resp BP Pulse Ox
98.0 F 60 16 165/47 98
07/02/23 08:00 07/02/23 09:00 07/02/23 04:15 07/02/23 08:58 07/02/23 09:00
07/01/23 07/02/23 07/03/23
06:59 06:59 06:59
Actual Weight 72.9 kg
07/02/23 05:35
07/02/23 05:35
PT 14.9 Sec (11.4-14.6) H 06/23/23 12:20
INR 1.16 06/23/23 12:20
APTT 33.1 Sec (23.4-35.0) 06/23/23 12:20
06/23/23
12:20
Kan-E-Ltuiryeonrl Pept 193
Physical Exam
EENT: Anicteric
Cardiovascular: Rhythm & rate is regular
Respiratory: Wheeze Absent and Rhonchi Absent
GI: Soft
Neuro/Psych: Alert
Other: Cath Site (fine bilateral)
Data Reviewed
-
Date of Service: July 02, 2023
Medical Decision Making: Reviewed Test Results
Echo: Report Reviewed by me
Medical Tests (PFT, Pathology etc): Report Reviewed by me
Labs: Labs Reviewed by me
--- NOTE | 2023-07-02 12:00 | PTCARENOTE ---
all d/c intructions gone over with patient. questions answered. iv and tele pack removed. left via wheelchair with family member.
== END 2023-07-02 13:52 | disposition home or self-care (01) | DRG 267 ==
LOC: CVICU 09:15
PROVIDERS: Clinical Nurse Specialist Acute Care; Physician Assistant Medical; ADMITTING PHYSICIAN Thoracic Surgery (Cardiothoracic Vascular Surgery); FAMILY PHYSICIAN Internal Medicine
PROC: 02RF38N Replacement of Aortic Valve with Zooplastic Tissue, using Rapid Deployment Technique, Percutaneous Approach (ICD-10-PCS; 2023-07-01)
PROC: B24BZZ4 Ultrasonography of Heart with Aorta, Transesophageal (ICD-10-PCS; 2023-07-01)
DX: I35.0 Nonrheumatic aortic (valve) stenosis (principal); D62 Acute posthemorrhagic anemia; I13.0 Hypertensive heart and chronic kidney disease with heart failure and stage 1 through stage 4 chronic kidney disease, or unspecified chronic kidney disease; I44.2 Atrioventricular block, complete; I50.32 Chronic diastolic (congestive) heart failure; E11.22 Type 2 diabetes mellitus with diabetic chronic kidney disease; G47.33 Obstructive sleep apnea (adult) (pediatric); I25.10 Atherosclerotic heart disease of native coronary artery without angina pectoris; K21.9 Gastro-esophageal reflux disease without esophagitis; M17.0 Bilateral primary osteoarthritis of knee; I48.0 Paroxysmal atrial fibrillation; E53.8 Deficiency of other specified B group vitamins; E78.49 Other hyperlipidemia; F32.A Depression, unspecified; N18.32 Chronic kidney disease, stage 3b; F41.9 Anxiety disorder, unspecified; M43.16 Spondylolisthesis, lumbar region; E78.00 Pure hypercholesterolemia, unspecified; I25.2 Old myocardial infarction; Z90.13 Acquired absence of bilateral breasts and nipples; Z85.3 Personal history of malignant neoplasm of breast; Z92.3 Personal history of irradiation; Z87.19 Personal history of other diseases of the digestive system; Z95.0 Presence of cardiac pacemaker; Z82.3 Family history of stroke; Z79.01 Long term (current) use of anticoagulants; Z86.79 Personal history of other diseases of the circulatory system
CPT/HCPCS: 93308; 33361; 36415; 71045; 71046; 71250; 74176; 80048; 80053; 81003; 81015; 82248; 83036; 83880; 85014; 85018; 85025; 85027; 85049; 85347; 85610; 85730; 86850; 86900; 86901; 87070; 93005; 93306; 93321; 93325; C1760; C1769; C1894; J2916; P9045; Q9967

== ENCOUNTER 2024-07-23 08:21 | Inpatient (IN) | payer OTHER, SELFPAY ==
[2024-07-22] VITALS (8 sets, daily range): BP systolic 116–134; BP diastolic 53–73; BMI 28.0
[2024-07-22 18:45] LABS: % Eosinophils 2.5 % (0-6); % Immature Granulocytes 1.4 % (0-0.5); % Monocytes 9.5 % (1.7-9.3); % Neutrophils 65.6 % (42.2-75.2); Absolute Basophils 0.1 10^3/uL (0-0.2); Absolute Eosinophils 0.3 10^3/uL (0-0.7); Absolute Immature Granulocytes 0.2 10^3/uL (0-0.05); Absolute Lymphocytes 2.3 10^3/uL (1.2-3.4); Absolute Monocytes 1.1 10^3/uL (0.1-0.6); Absolute Neutrophils 7.5 10^3/uL (1.4-6.5); Hematocrit 32.3 % (37.0-47.0); Hemoglobin 10.6 g/dL (12.0-16.0); Mean Corp Hgb Conc. 32.8 g/dL (33.0-37.0); Mean Corpuscular Hgb 30.7 pg (27.0-31.0); Mean Corpuscular Volume 93.6 fL (81.0-99.0); Nucleated Red Blood Cells % 0 %; Platelet Count 396 10^3/uL (130-400); Red Blood Cell Count 3.45 10^6/uL (4.20-5.40); Red Cell Dist. Width 14.6 % (11.5-14.5); White Blood Cell Count 11.4 10^3/uL (4.8-10.8)
--- NOTE | 2024-07-22 18:45 | ED.GENMED ---
History of Present Illness
General
Chief Complaint: Chest Pain
Source: patient, family, ambulance crew and [facility] records
Exam Limitations: none
Time Seen by Provider: 07/22/24 18:31
Nursing documentation reviewed up to this point in time: agreed with
History of Present Illness
History of Present Illness:
88-year-old female with a past medical history of hypertension, hyperlipidemia, diabetes, CAD, CHF, atrial fibrillation on Eliquis, pacemaker who presents to the emergency department via EMS for evaluation of chest pain. Of note patient has been at
[facility] for rehab after recent hospitalization at [facility] for 'spinal infection' for which she is undergoing treatment with IV antibiotics via PICC line. She has been at rehab for 1 week and has generally been doing well. Was in
her normal state of health today, patient reports acute onset of chest pain about an hour prior to arrival while she was downstairs sitting at dinner. Symptoms have been constant since that time. She reports pressure sensation across the chest
9/10 intensity. Associated with mild shortness of breath. No nausea or vomiting. No abdominal pain. No diaphoresis. She denies any other complaints. Her normal product marketing programs manager is Dr. Gilmore. Per EMS on their arrival she was hypotensive. Her EKG
was concerning for ST changes in the inferior leads although interpretation complicated by paced rhythm and for this reason no prehospital STEMI alert was called. She did per EMS have approximately 20 second run of ventricular tachycardia during
transport.
Review of Systems
Review of Systems
Unable to obtain full review of systems at this time due to: due to acuity
All Other Systems: Not applicable
Phy Exam
Physical Exam
Physical Exam:
General: Lethargic but arousable; no acute distress
Head: Normocephalic, atraumatic
Eyes: Conjunctiva normal, pupils equal round and reactive to light bilaterally
Throat: Airway intact, handling secretions
Neck: Trachea midline, supple without meningismus
Lungs: Clear to auscultation bilaterally, no wheezing, rales, rhonchi
Heart: Regular rate and rhythm, systolic murmur; pacemaker left upper chest; PICC line in place right clavicular region; bilateral mastectomy
Abd: Soft, non distended, nontender to deep palpation
Neuro: No gross deficits
Skin: no rash
Extremities: No edema in extremities, equal pulses in all extremities
Scores
Heart Failure Risk
Heart Failure Risk Score: Not Applicable
Heart Score for Chest Pain Patients
STEMI patient?: Yes
Withdrawal Assessment of Alcohol
Withdrawal Assessment Completed?: Not applicable
Course
Orders/Labs/Results
Orders:
Orders
07/22/24 18:26
Electrocardiogram (*1) Urgent
Reason for Study: Chest Pain
EKG- Treatment ONCE
07/22/24 18:32
CR Chest Portable - 1 View Urgent
Comment:
Reason For Exam: chest pain
Reason Study Needs to be Portable: Unable to Transport
07/22/24 18:38
Complete Blood Count/With Diff Urgent
PTT Urgent
Prothrombin Time Urgent
Aspirin 300 mg RECTAL NOW STA
07/22/24 18:39
CARDIOLOGY CONSULT Urgent
Consulting Provider: Amadeo Ariza
Was physician already notified: Yes
07/22/24 18:48
Interrogate Pacemaker- Treatment ONCE
07/22/24 18:52
Lactic Acid Urgent
Venous Blood Gas Urgent
%Oxygen/Room Air: 97
07/22/24 19:01
Comprehensive Metabolic Panel Urgent
Lipase Urgent
Troponin I Urgent
Abnormal Lab Results
07/22/24 07/22/24
18:38 18:52
WBC 11.4 H 10^3/uL
(4.8-10.8)
RBC 3.45 L 10^6/uL
(4.20-5.40)
Hgb 10.6 L g/dL
(12.0-16.0)
Hct 32.3 L %
(37.0-47.0)
MCHC 32.8 L g/dL
(33.0-37.0)
RDW 14.6 H %
(11.5-14.5)
Abs Immat Gran (auto) 0.2 H 10^3/uL
(0-0.05)
Absolute Neuts (auto) 7.5 H 10^3/uL
(1.4-6.5)
Absolute Monos (auto) 1.1 H 10^3/uL
(0.1-0.6)
Immature Gran % 1.4 H %
(0-0.5)
Lymphocytes % 20.0 L %
(20.5-51.1)
Monocytes % 9.5 H %
(1.7-9.3)
PT 16.0 H Sec
(11.4-14.6)
APTT 36.8 H Sec
(23.4-35.0)
VBG pH 7.31 L
(7.32-7.43)
Lactic Acid 3.2 H mmol/L
(0.7-2.0)
07/22/24 18:38
Vital Signs
Initial and Last Documented VS:
Initial Vital Signs
Pulse BP Pulse Ox
60 134/73 95
07/22/24 18:29 07/22/24 18:29 07/22/24 18:29
Last Documented Vital Signs
Pulse Resp BP Pulse Ox
66 19 116/53 98
07/22/24 19:00 07/22/24 19:00 07/22/24 19:00 07/22/24 18:45
MDM/Problems Addressed
Differential Diagnosis Includes:
ACS, GERD/esophageal spasm, cholelithiasis
MDM/Problems Addressed:
88-year-old female presents for evaluation of acute onset chest pain started less than an hour prior to arrival. Vitals and exam as above. Her initial EKG is an AV dual paced rhythm. When compared to her old EKG she has ST changes inferior and
lateral leads�interpretation complicated by paced rhythm but given significant changes from prior in the context of her clinical presentation concern for an acute coronary syndrome. Case was discussed with interventional cardiology, plan to
activate Card Player take for emergent catheterization. Treat with aspirin/Brilinta/heparin.
Chronic conditions affecting care:
Significant cardiac history
*Pulse Oximetry
Patient hypoxic: no
*EKG
Interpreted by ED Provider?: Yes
Heart Rate: 60
Rate: normal
Rhythm: av sequential
*Critical Care Note
Total Time (30-74mins, 75-104mins- exclusive of procedures): 30
comment:
Critical care statement: A total of 30 minutes of critical care time was provided for this patient. This includes management of unstable vital signs, evaluation of the patient at bedside, frequent reassessment, discussion with
consultants/hospitalist, and review of pertinent medical records. This time was separate from time utilized to perform any aforementioned documented procedures
Data Reviewed
Source: patient, records, family, ambulance crew and [facility] records
Patient Management
Discussion with other providers: Yarn Bleaching Machine Operator (Discussed with interventional cardiology)
Escalation/DeEscalation of care consider admission/obs:
Card Player
ED Attending Note
-
Portions of this chart may have been created with voice recognition software.� Occasional wrong word or��sound alike� substitutions may have occurred due to the inherent limitations of voice recognition software.
Discharge Plan
Departure
Patient Disposition: CLIENT MANAGER LARGE LAW
Date of Disposition: 07/22/24
Time of Disposition: 18:44
Admit to doctor: To
Presentation/result/management discussed w/ accepting MD/DO: Interventional cardiology
Discharge Problem:
Acute coronary syndrome
Prescriptions:
No Action
polyethylene glycol 3350 [Miralax] 17 gram Powder In Packet
17 g PO DAILY
amiodarone 200 mg Tablet
200 mg PO DAILY
simvastatin 20 mg Tablet
20 mg PO DAILY
magnesium 250 mg Tablet
125 mg PO DAILY
furosemide 20 mg Tablet
20 mg PO MOWEFR
metoprolol succinate 25 mg Tablet Extended Release 24 Hr
25 mg PO DAILY
Eliquis 5 mg Tablet
5 mg PO BID
mirtazapine 7.5 mg Tablet
7.5 mg PO HS
aspirin 81 mg Capsule
81 mg PO DAILY
pantoprazole 40 mg Tablet,Delayed Release (Dr/Ec)
40 mg PO DAILY
Vitamin B-12
1 tab PO DAILY
ascorbic acid (vitamin C) [Vitamin C] 500 mg Tablet
1,000 mg PO DAILY Qty: 28 0RF
Rx Instructions:
Take 2 tabs (1000 mg) once daily for 14 days and then stop unless instructed otherwise
acetaminophen 325 mg Tablet
650 mg PO Q4HPRN PRN (Reason: ZHOU, mild pain, or fever >101F) Qty: 0 0RF
Rx Instructions:
Please purchase over the counter
ferrous sulfate 325 mg (65 mg iron) tablet
325 mg PO DAILY Qty: 14 0RF
Rx Instructions:
Take one tab daily for 14 days and then stop unless instructed otherwise
Interventions
Interventions:
*Risk Screen - Suicide Last Done: 07/22/24 18:37
*Neglect/Abuse Screening Last Done: 07/22/24 18:37
Discharge Date and Time
Print Language: JAPANESE
[2024-07-22 18:57] LABS: INR 1.25
[2024-07-22 18:57] LABS: Venous Blood Gas B.E. -2.3 mmol/L (-4 to +4); Venous Blood Gas HCO3 24.2 mmol/L (22-27); Venous Blood Gas O2 Sat % 75.6 %; Venous Blood Gas pCO2 48 mmHg (35-48); Venous Blood Gas pH 7.31 (7.32-7.43); Venous Blood Gas pO2 44 mmHg (30-50)
[2024-07-22 18:58] LABS: APTT 36.8 Sec (23.4-35.0)
[2024-07-22 19:14] LABS: Lactic Acid 3.2 mmol/L (0.7-2.0)
[2024-07-22 19:23] LABS: ALT (SGPT) 15 U/L (0-35); AST (SGOT) 33 U/L (14-36); Alkaline Phosphatase 174 U/L (38-126); Blood Urea Nitrogen 26 mg/dl (7-17); Calcium 8.7 mg/dl (8.4-10.2); Carbon Dioxide 25 mmol/L (22-30); Chloride 101 mmol/L (98-107); Glucose 192 mg/dl (70-99); Lipase 232 U/L (23-300); Potassium 5.1 mmol/L (3.5-5.1); Sodium 134 mmol/L (135-145); Total Bilirubin 0.6 mg/dl (0.2-1.3); Total Protein 6.5 g/dl (6.3-8.2); eGFR 36.64
[2024-07-22 19:38] LABS: Troponin I 0.066 ng/ml
[2024-07-22 19:50] LABS: ACT-LR - POC 279 Seconds (116-155)
[2024-07-22 20:12] LABS: ACT-LR - POC 348 Seconds (116-155)
[2024-07-22 20:40] LABS: ACT-LR - POC 387 Seconds (116-155)
--- NOTE | 2024-07-22 21:53 | ITS.CL.PN ---
Nuclear Monitoring Technician - Procedure Note
Procedure
Procedure Note:
CARDIAC CATHETERIZATION REPORT
Date of Procedure: 07/22/2024
Referring: Dr. Sergo De Leon Jr.
Indication: inferior STEMI
PROCEDURE(S)
1. right heart catheterization
2. coronary angiography
3. mechanical thrombectomy RCA
4. IVUS RCA
5. PCI with SOLOMON to RCA for acute HI
ACCESS
1. 6F right radial artery (closure: radial band; note: the vessel was accessed but the sheath was unable to be advanced smoothly so radial access was abandoned and a TR band placed prior to converting to groin access)
2. 6F right femoral artery (closure: Angioseal x1)
3. 6F right femoral vein (closure: manual hemostasis)
CATHETERS
1. 6F JR4
2. 6F JL4
3. 6F AR1 guide
4. 6F balloon wedge
MODERATE SEDATION: 90 minutes of moderate sedation was utilized. An independent medical aide was present to assist with and help manage the patient's level of consciousness and physiologic status.
HEMODYNAMIC DATA
AO 122/61 (mean 83) mmHg
RA 15 mmHg
RV 48/9 (EDP 15) mmHg
PA 41/20 (mean 30) mmHg
PCWP 16 mmHg
SaO2 94.1%
SvO2 53.7%
Hb 9.1 g/dL
CO/CI 4.86/2.50 L/min/m2
SVR 1120 dsc*-5
PVR 2.9 Wood units
CORONARY ANGIOGRAPHY
Dominance: Right
LM: large vessel with mild ostial narrowing of about 30% that is unchanged from prior angiography in 2023.
LAD: large vessel giving rise to three small diagonal branches and wrapping around the apex. There is a 50% stenosis spanning the D2 and D3 that is unchanged from prior angiography in 2023.
LCx: moderate caliber vessel giving rise to a moderate caliber OM1 and small OM2. There are trivial luminal irregularities only.
RCA: large vessel 100% occluded distally. There is 50% ostial stenosis with normal contrast reflux and no pressure dampening with a 6F JRF catheter. The appearance of this ostial lesion is unchanged from prior angiography in 2023.
PCI with SOLOMON to RCA
The decision was made to proceed with PCI of the distal RCA which was the obvious culprit for the patient's STEMI. Heparin was administered to achieve ACT greater than 300. The RCA was engaged with a 6 [place] AR-1 guide catheter and a Runthrough
coronary wire was able to cross the lesion and placed in the distal RPL branch. Initial lesion preparation was performed with a 2.5 semi compliant balloon with mandaeism of TIMI1 flow. Further lesion preparation was performed with the 2.5 balloon
without improvement. The decision was made to administer intracoronary nicardipine 60 micrograms to treat possible coronary microvascular obstruction causing no reflow. There was no improvement in distal flow after nicardipine and the appearance of
the flow was more suggestive of heavy thrombus burden than microvascular obstruction. Thus, the decision was made to perform mechanical thrombectomy with the [employer] CAT RX system. The catheter was hooked up to suction and the canister primed with
the switch in the OFF position, the catheter was then advanced over the wire to the vessel, with suction then turned ON in the mid vessel, followed by forward advancement to the mid lesion. The catheter would not advanced beyond the mid lesion, so
suction was performed with slow retraction from this point back. With suction kept on, the catheter was removed from the body at which point suction was turned off. The catheter was flushed and no significant thrombus was appreciated. The guide was
copiously irrigated with at least 10 mL successfully aspirated without difficulty before the catheter was suddenly no longer able to be aspirated. There was no pressure able to be transduced from the catheter. Fluoroscopy showed stable position of
the catheter. The catheter was inspected on floro for kinks and non were present. The catheter was disengaged from the RCA and still was unable to be aspirated. Given concern that thrombus material had been deposited in the catheter, the decision
was made to remove the catheter and wire entirely from the body. This was performed with the catheter under continuous suction, after which the sheath was aspirated and flushed. Upon flushing the catheter on the back table, a serpiginous 1 cm long
by several mm wide piece of what appeared to be tissue, possible white thrombus, was expelled from the catheter. This was saved to be sent to pathology. We then turned our attention to re-engaging the vessel. The patient had been stable up until
this point but had sudden onset rapid VT that was successfully defibrillated with a single shock with mandaeism of sinus rhythm and hypertensive blood pressure. The patient was fully neurologically intact. Lidocaine bolus and drip were started.
The vessel was re-engaged and subsequent angiography demonstrated modest improvement in the thrombus burden in the vessel, but still TIMI1 flow distally. Repeat angioplasty with the 2.5 balloon was performed with improvement in distal flow, still
TIMI1. Stenting was then performed with a 3.0x34 mm [place] SOLOMON taken to 14 yossi. Angiography demonstrated robust TIMI3 flow in the large RPL system. There was an early small PDA branch that was never seen during the case but known to exist
from prior angiography. Wiring of this branch was attempted with both a Runthrough and Whisper wire but was not successful. Thus, it was felt that this vessel is likely chronically occluded. At this point the patient's chest pain had improved from
9/10 at the beginning of the case to 0/10. IVUS was performed demonstrating a 3.5 mm reference vessel diameter and a small area of stent under-expansion in the mid stent. Post-dilation was performed with a 3.5 mm NC balloon taken to 14 yossi at the
distal stent edge, 20 yossi at the mid-stent with full expansion, and 18 yossi to the proximal edge. Final angiographic result was excellent with TIMI3 flow, no evidence of edge dissections, and minimal residual stent underexpansion. The wire and guide
were removed. Right heart catheterization was then performed with hemodynamics as detailed. The femoral artery was closed with Perclose x1 with excellent hemostasis and the venous site held with manual pressure. Family was updated and the patient
admitted for post-STEMI care.
RADIATION: dose 2102 mGy; DAP 174 Gy*cm2; fluoroscopy time 30.7 min
CONCLUSIONS
1. Coronary angiography with evidence of single vessel obstructive CAD with 100% thrombotic occlusion of the distal RCA as the culprit for the patient's STEMI.
2. Mechanical thrombectomy complicated by inability to aspirate the guide catheter necessitating catheter removal with subsequent expulsion of large piece of tissue, possibly white thrombus, to be sent to pathology for analysis.
3. Reperfusion VT arrest successfully terminated with defibrillation x1 with immediate hemodynamic stability and normal neurologic status.
4. Successful IVUS-guided PCI of the distal RCA with excellent result.
5. Right heart catheterization with elevated right greater than left sided filling pressure (JAI 1.4; RAP/PCWP ratio 0.93) suggesting RV dysfunction in setting of RCA STEMI, mild pulmonary hypertension, and normal cardiac output.
RECOMMENDATIONS
1. DAPT with ASA/ticagrelor. Will transition in hospital to ASA/Plavix given ongoing need for Eliquis. Plan on discharge will be for SAPT with Plavix + Eliquis
2. Resume Eliquis tomorrow morning with 2.5 BID
3. 1L IVF over 4 hours
4. Stop heparin
5. Can stop lidocaine now, VT likely reperfusion related. If significant NSVT or VT, restart lidocaine and call interventional cardiology scullion chief
6. Reinitiated other home GDMT tomorrow pending stable hemodynamics
6. Trend trop to peak, EKG and Echo in AM, A1c/lipids
7. Tissue removed during mechanical thrombectomy to be sent to pathology
8. Abx via PICC for blood stream infection per hospitalist service
Copy to: Dr. Saeid Gilmore MD (2nd pressman); Dr. Eitan Reed MD (PCP)
Signed: Amadeo Ariza MD, PhD
--- NOTE | 2024-07-22 22:15 | PTCARENOTE ---
pt from [facility], admitted into CVICU room 2261. pt A&Ox4, on bedrest s/p PCI. V-paced w/ PPM on tele-monitor. POX 97-98% on RA. abd s/n, hypoactive BS. R radial TR band in place. R groin site dressing, CDI. R upper chest wall double lumen PICC. PIV
intact. MASD in B/L groins. reddened buttocks, foam placed, wound consult placed. see worklist for complete nursing assessment, interventions, VS, and I&Os.
[2024-07-22] MEDS: NSS 1000 IV (22:22)
--- NOTE | 2024-07-22 22:50 | PTCARENOTE ---
R groin site dressing saturated at this time. surround area soft, positive distal pulses. Doctor To notified.
--- NOTE | 2024-07-22 23:03 | PTCARENOTE ---
JONATHAN Morales applied direct manual pressure on R groin venous site for 5 minutes, hemostasis achieved.
--- NOTE | 2024-07-22 23:26 | HPS.HSE ---
Family Physician
-
Family Physician: Eitan Reed MD
Chief Complaint
-
Chest Pain
History of Present Illness
Patient is an 88y F with PMH significant for hypertension, s/p TAVR and recent hospitalization for discitis / endocarditis who presents to ED complaining of chest pain. Patient was recently hospitalized at [facility] for complaints
of back pain. She was found to have vertebral compression fracture at that time and discitis / epidural abscess. Patient reportedly had positive blood cultures / bacteremia (? organism). GIANLUCA was down and per patient description this showed small
vegetation on [place] and [place] valve (not her TAVR). Patient was started on IV abx with ampicillin and ceftriaxone. She had a 'PICC' placed in the R IJ and was discharged to SNF for IV abx / rehab.
This evening at dinner, patient developed substernal chest tightness / pressure. She denies any associated SOB, N/V, palpitations, etc.
Patient presented to the ED at for further evaluation.
She was seen by cardiology and taken emergently for catheterization based on chest discomfort, elevated troponin and inferior EKG changes.
Patient underwent PTCA with stent placement to the RCA.
She is seen and examined in the CVICU s/p cath.
Patient is awake and alert. She states that she is pain-free at present.
Patient has no personal history of [place], CVA, etc.
Medical History
Past Medical History
Past Medical History: Reports Other
Additional Past Medical History:
Endocarditis
Discitis / Epidural Abscess
Vertebral Compression Fracture
Hypertension
GERD
Aortic Stenosis
Paroxysmal Atrial Fibrillation
Chronic HFpEF
Breast Cancer s/p Mastectomy and XRT
Past Surgical History: Reports Other
Additional Past Surgical History:
PTCA with RCA Stent (07/22/24)
Bilateral Mastectomies
TAVR (06/2023)
T&A
Social History
Tobacco: Non-smoker
Alcohol: None
Family History
Family History: Not pertinent
Allergies / Home Medications
Allergies reflects when Allergies were last updated in [employer].
Home Medications with original date entered in [employer]
Allergy/Medication List:
Allergies
Allergy/AdvReac Type Severity Reaction Status Date / Time
No Known Allergies Allergy Verified 07/22/24 18:33
Home Medications
amiodarone 200 mg tablet 200 mg PO DAILY Heart Disease/Condition 04/19/23
furosemide 20 mg tablet 20 mg PO .MOWEFR@0800, 1700 Fluid Retention/Swelling 04/19/23
metoprolol succinate 25 mg tablet,extended release 24 hr 25 mg PO DAILY Heart Disease/Condition 04/19/23
polyethylene glycol 3350 17 gram oral powder packet (Miralax) 17 g PO DAILY Constipation 04/19/23
simvastatin 20 mg tablet 20 mg PO HS High Cholesterol 04/19/23
mirtazapine 7.5 mg tablet 7.5 mg PO HS Mental Health/Anxiety 04/27/23
pantoprazole 40 mg tablet,delayed release 40 mg PO DAILY Gastrointestinal Issue 07/01/23
acetaminophen 500 mg tablet 1,000 mg PO Q8H mild pain, fever >100.4 07/22/24
ampicillin sodium 2 gram intravenous solution 2 g IV Q6H 07/22/24
apixaban 2.5 mg tablet (Eliquis) 2.5 mg PO BID 07/22/24
aspirin 81 mg chewable tablet 81 mg PO DAILY 07/22/24
bisacodyl 10 mg rectal suppository (Dulcolax (bisacodyl)) 10 mg WV DAILY PRN if no bm in 8hr after MOM 07/22/24
ceftriaxone 1 gram intravenous solution 2 g IV Q12H 07/22/24
magnesium hydroxide 400 mg/5 mL oral suspension (Milk of Magnesia) 2,400 mg PO DAILYPRN PRN constipation, if no bm x2 days 07/22/24
oxycodone 5 mg tablet 5 mg PO Q4HPRN PRN severe pain 07/22/24
sodium chloride 0.9 % (flush) 10 ml IV Q8H 07/22/24
sodium phosphates 19 gram-7 gram/118 mL enema (Fleet Enema) 118 ml WV PRN PRN if no bm 8hr after suppository 07/22/24
tuberculin PPD 5 tub. unit/0.1 mL intradermal injection solution 0.1 ml intradermal Q9D 07/22/24
zinc oxide 20 % topical paste 1 ea topical Q8H 07/22/24
Review of Systems
-
History Source: Patient
A 12 point ROS was completed and negative except as noted: Yes
Constitutional: Denies Fever or Chills
Respiratory: Denies Cough or Trouble Breathing
Cardiac: Reports Chest Pain; Denies Palpitations or Syncope
Abdomen/GI: Denies Abdominal Pain, Nausea, Vomiting or Diarrhea
: Denies Dysuria or Frequency
Musculoskeletal: Reports Other (Back pain); Denies Joint Pain or Muscle Pain
Neurological: Denies Dizzy or Headache
Psych: Denies Depression or Anxiety
Physical Exam
Vital Signs
Vital Signs
Temp Pulse Resp BP Pulse Ox
97.2 F 61 15 122/65 95
07/22/24 22:00 07/22/24 23:15 07/22/24 23:15 07/22/24 23:00 07/22/24 23:15
Physical Exam
General: Other (88y F in no acute distress.)
HEENT: Moist mucous membranes and PERRLA
Respiratory: Clear; No Wheezes, Rales or Rhonchi
Cardiac: S1/S2 and Regular Rhythm; No Murmur
GI: Soft, Non Tender, Non Distended and Normal Bowel Sounds
Musculoskeletal: No Clubbing, No Cyanosis and No Edema
Neuro: AO x 3
Hematologic/Lymphatic: Other (R IJ CVC in place.)
Laboratory Results
-
07/22/24 18:38
07/22/24 19:
Laboratory Results
PT 16.0 Sec (11.4-14.6) H 07/22/24 18:38
INR 1.25 07/22/24 18:38
APTT 36.8 Sec (23.4-35.0) H 07/22/24 18:38
Lactic Acid 3.2 mmol/L (0.7-2.0) H 07/22/24 18:52
Total Bilirubin 0.6 mg/dl (0.2-1.3) 07/22/24 19:
AST 33 U/L (14-36) 07/22/24:
ALT 15 U/L (0-35) 07/22/24 19:
Alkaline Phosphatase 174 U/L (38-126) H 07/22/24 19:
Troponin I 3.380 ng/ml H* D 07/22/24 22:02
Lipase 232 U/L (23-300) 07/22/24 19:
Impression/Plan
-
A/P: Patient is an 88y F with PMH significant for HTN, aortic stenosis and CHF who presents to ED complaining of chest pain. Taken emergently to phlebotomist medical lab assistant for STEMI.
STEMI
- Admit to CVICU post cath.
- Stent placed to 100% lesion of the RCA. Patient symptom-free at present.
- Thrombus specimen retrieved during cath sent for pathology.
- Post-cath care per Cardiology.
- Triple therapy with ASA, Brilinta / Plavix and Eliquis.
- Follow for any recurrent chest discomfort.
- Continue beta sue. Change to high intensity statin.
Ventricular Tachycardia
- Patient with VT episode s/p stent placement - presumed perfusion related.
- s/p single shock administered during cath case.
- On lidocaine post-procedure which can now be discontinued per Cardiology.
- Continue usual amiodarone dosing (200mg daily).
- Monitor for any recurrence of arrhythmia.
- Check Mg.
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
Discitis / Epidural Abscess
- Afebrile / non-toxic at present.
- Continue current abx regimen for now (ampicillin / ceftriaxone).
- Obtain records from [facility] for review (culture data, GIANLUCA, etc).
- ID evaluation.
- Follow temperature curve, etc.
Paroxysmal Atrial Fibrillation
- In sinus rhythm at present. Has PPM in place.
- Continue Eliquis for stroke risk reduction.
Chronic HFpEF
- LVEF normal on recent Echo. No evidence of volume overload on today's exam.
- Takes Lasix thrice weekly - will hold for now and follow I/Os, daily weights, etc.
Benign Hypertension
- Stable. Continue metoprolol with holding parameters.
- Adjust med regimen as needed for adequate control.
CKD III
- Stable. Renal function at / near known baseline.
- Follow for any changes s/p cath.
Anemia of Chronic Disease
- Stable. Hgb is at / near known baseline.
- Normocytic anemia.
- Follow for changes in H&H or evidence of gross bleeding - especially while on 3x therapy.
GERD
- Stable. Continue daily PPI.
DVT Prophylaxis: Eliquis
Code Status: DNR
--- NOTE | 2024-07-22 23:32 | CON.CAR ---
Consultation
Consultation Request
Date/Time Consultation Requested: 07/22/24 7 PM
Date/Time Consultation Performed: 07/22/24 7 PM
Requesting Provider: Dr. Sergo De Leon
Performing Provider: Dr. Ozzie Ariza
Reason for Consultation: inferior STEMI
Medical History
-
Chief Complaint: chest pain
History of Present Illness:
88-year-old female with a past medical history of hypertension, hyperlipidemia, diabetes, CAD (non-obstructive per pre-TAVR cath 2023), HFpEF, atrial fibrillation on Eliquis and amio, CHB s/p dcPPM, severe s/p TAVR ([place], 06/2023, Annabella S3 26)
who presents to the emergency department via EMS for evaluation of chest pain, found to have inferior STEMI. Of note patient has been at [facility] for rehab after recent hospitalization at [facility] for 'spinal infection' for which she
is undergoing treatment with IV antibiotics via PICC line. She has been at rehab for 1 week and has generally been doing well. Was in her normal state of health today, patient reports acute onset of chest pain (substernal, some mild SOB but no
N/V/diaphoresis) about an hour prior to arrival while she was downstairs sitting at dinner. She arrived by EMS and on transporte was reported as hypotensive and had a 20 second run of VT. On arrival to ED, VSS, chest pain 9/10. Initial labs notable
for Cr 1.4 (mildly elevated from prior), troponin pending. EKG showed BiV paced rhythm with significant inferior ST elevations no presented on prior ECG. She received ASA/ticagrelor/heparin, fluids but no nitro and was transported to the geoscience laboratory technician
emergently.
Per report from son (records from [facility] not immediately available) GIANLUCA was performed and there is possible concern for endocarditis of a valve other than her TAVR valve (exact details unknown). Per his report, no vegetation was seen on her
pacemaker leads and he is not aware of any plan to remove hardware at this time. She has a right sided PICC line and is receiving IV antibiotics at rehab.
In the geoscience laboratory technician, she was found to have a 100% occluded distal RCA. Mechanical thrombectomy was performed and she was successfully stented (3.0x34 mm [place]) with excellent result. Right heart cath demonstrated elevated RV filling pressure and
evidence of RV dysfunction.
Past Medical History
Past Medical History: CAD, CHF, HTN, Hypercholesterolemia and Valvular Disease
Allergies / Home Medications
Allergy/AdvReac Type Severity Reaction Status Date / Time
No Known Allergies Allergy Verified 07/22/24 18:33
�Medication �Instructions �Recorded �Confirmed �Type
amiodarone 200 mg tablet 200 mg PO DAILY Heart 04/19/23 07/22/24 History
Disease/Condition
furosemide 20 mg tablet 20 mg PO .MOWEFR@0800, 1700 Fluid 04/19/23 07/22/24 History
Retention/Swelling
metoprolol succinate 25 mg 25 mg PO DAILY Heart 04/19/23 07/22/24 History
tablet,extended release 24 hr Disease/Condition
polyethylene glycol 3350 17 gram 17 g PO DAILY Constipation 04/19/23 07/22/24 History
oral powder packet (Miralax)
simvastatin 20 mg tablet 20 mg PO HS High Cholesterol 04/19/23 07/22/24 History
mirtazapine 7.5 mg tablet 7.5 mg PO HS Mental Health/Anxiety 04/27/23 07/22/24 History
pantoprazole 40 mg tablet,delayed 40 mg PO DAILY Gastrointestinal 07/01/23 07/22/24 History
release Issue
acetaminophen 500 mg tablet 1,000 mg PO Q8H mild pain, fever 07/22/24 07/22/24 History
>100.4
ampicillin sodium 2 gram 2 g IV Q6H 07/22/24 07/22/24 History
intravenous solution
apixaban 2.5 mg tablet (Eliquis) 2.5 mg PO BID 07/22/24 07/22/24 History
aspirin 81 mg chewable tablet 81 mg PO DAILY 07/22/24 07/22/24 History
bisacodyl 10 mg rectal suppository 10 mg CO DAILY PRN if no bm in 8hr 07/22/24 07/22/24 History
(Dulcolax (bisacodyl)) after MOM
ceftriaxone 1 gram intravenous 2 g IV Q12H 07/22/24 07/22/24 History
solution
magnesium hydroxide 400 mg/5 mL 2,400 mg PO DAILYPRN PRN 07/22/24 07/22/24 History
oral suspension (Milk of Magnesia) constipation, if no bm x2 days
oxycodone 5 mg tablet 5 mg PO Q4HPRN PRN severe pain 07/22/24 07/22/24 History
sodium chloride 0.9 % (flush) 10 ml IV Q8H 07/22/24 07/22/24 History
sodium phosphates 19 gram-7 118 ml CO PRN PRN if no bm 8hr 07/22/24 07/22/24 History
gram/118 mL enema (Fleet Enema) after suppository
tuberculin PPD 5 tub. unit/0.1 mL 0.1 ml intradermal Q9D 07/22/24 07/22/24 History
intradermal injection solution
zinc oxide 20 % topical paste 1 ea topical Q8H 07/22/24 07/22/24 History
Review of Systems
-
History Source: Patient
Cardiac: Chest Pain
Physical Exam
Vital Signs
Temp Pulse Resp BP Pulse Ox
36.2 C 61 15 122/65 95
07/22/24 22:00 07/22/24 23:15 07/22/24 23:15 07/22/24 23:00 07/22/24 23:15
Lab Results
07/22/24 18:38
07/22/24 19:01
Troponin I 3.380 ng/ml H* D 07/22/24 22:02
Physical Exam
General: Other (uncomfortable appearing)
Respiratory: Clear
Cardiac: Regular Rhythm and Other (no murmur)
Skin: Warm
Neuro: AO x 3
Impression / Plan
-
This is a 88 year old woman with past medical history of non-obstructive CAD, s/p TAVR, CHB s/p PPM, Afib on eliquis and amio, HFpEF, and recent admission for spinal infection and possible endocarditis now in rehab on IV antibiotics via PICC
line, who presented with acute onset chest pain and inferior STEMI on EKG, found to have RCA occlusion status post successful PCI.
Outpatient master baker: Dr. Saeid Gilmore MD
CAD c/b STEMI s/p PCI to RCA 07/22/24
- 3.0x34 mm [place] posted to high pressure with 3.5 mm NC balloon
- initial DAPT with ASA/ticag will transition to ASA/Plavix given Eliquis; triple therapy ASA/Plavix/Eliquis while admitted, reduce to Eliquis/Plavix on discharge
- restart home metop
- needs aggressive secondary management with high intensity statin and goal LDL at least <70, ideally <55
- trend troponin to peak
- check A1c/lipids
- TTE, initiate GDMT as indicated
- eventual cardiac rehab
Afib
- cont. dose reduced eliquis and dose reduced amio 100 (reduced from 200 per Saeid Gilmore outpatient note)
HFpEF
- on 20 mg lasix MWF at home
- getting fluids tonight for post cath THERESA prevnetion but may need duiresis during admission
s/p TAVR
- will get echo, per report, no vegetation on valve
Endocarditis?
- per family report, recent admission for spinal infection with possible evidence of endocarditis
- need to obtain records
- TTE here
- obtain records of abx protocol and cont. abx via PICC, consider ID involvement if needed
CHB s/p PPM
- paced rhythm
- per recent outpatient notes, PPM functioning normally
Data Reviewed
-
EKG: Tracing Personally Visualized and interpreted, Report Reviewed by me and Discussed with Physician
Labs: Labs Reviewed by me, Discussed with Physician and Discussed with Patient
Old Records: Requested
Critical Care Time (in minutes): 45
[2024-07-23] VITALS (10 sets, daily range): BP systolic 115–134; BP diastolic 56–78; BMI 28.4
[2024-07-23] MEDS: ROCEPHIN 2000 MG IV ×3 (00:07→23:41)
[2024-07-23] MEDS: AMPICILLIN 108 MG IV ×5 (00:07→23:41)
[2024-07-23] MEDS: STERILE WATER FOR INJECTION 20 ML IV ×3 (00:07→23:42)
[2024-07-23 00:22] LABS: Magnesium 2.3 mg/dl (1.6-2.3)
--- NOTE | 2024-07-23 04:15 | PTCARENOTE ---
no acute changes. VSS. 100% V-paced w/ PPM. POX 97-99% on RA. AM labs collected and sent. EKG completed.
[2024-07-23] MEDS: TYLENOL 650 MG PO (04:57)
[2024-07-23] MEDS: NSS IV (05:08)
[2024-07-23 05:15] LABS: Blood Urea Nitrogen 28 mg/dl (7-17); Calcium 8.4 mg/dl (8.4-10.2); Carbon Dioxide 24 mmol/L (22-30); Chloride 103 mmol/L (98-107); Estimated Creatinine Clearance 33 ml/min; Glucose 139 mg/dl (70-99); HDL Cholesterol 35 mg/dl; LDL Cholesterol, Calculated 49 mg/dl; Potassium 5.3 mmol/L (3.5-5.1); Sodium 134 mmol/L (135-145); Total Cholesterol 103 mg/dl (50-199); Triglyceride 96 mg/dl (10-149); Very Low Density Lipoprotein 19 mg/dl (0-30); eGFR 40.05
[2024-07-23 05:35] LABS: Hematocrit 25.5 % (37.0-47.0); Hemoglobin 8.4 g/dL (12.0-16.0); Mean Corp Hgb Conc. 32.9 g/dL (33.0-37.0); Mean Corpuscular Volume 94.1 fL (81.0-99.0); Mean Platelet Volume 10.5 fL (7.4-10.4); Platelet Count 310 10^3/uL (130-400); Red Blood Cell Count 2.71 10^6/uL (4.20-5.40); Red Cell Dist. Width 13.7 % (11.5-14.5); White Blood Cell Count 11.9 10^3/uL (4.8-10.8)
[2024-07-23] MEDS: ROXICODONE 2.5 MG PO (05:43)
--- NOTE | 2024-07-23 07:45 | PTCARENOTE ---
pt received from previous RN, oriented, in bed. 100% AV-paced on the monitor, HR 60s. pt denies CP or SOB. SBP 110-120s. pt on RA, 100% POX. pt x2 OOB to chair. R wrist site c/d/i. R groin site scant old drainage. foam dressing on sacrum. R chest
double lumen PICC in place, PIV. pathology sample sent to lab. report given to Lluvia GREEN in IVU, pt transferred via chair.
[2024-07-23 08:22] LABS: Glucose - Point of Care 127 mg/dl (70-99)
--- NOTE | 2024-07-23 08:30 | PTCARENOTE ---
Received from CVICU, monitor showing av/vpaced rhythm, VSS. c/o feeling nauseous, given gingerale to sip. Oriented to room, pt OOB to chair, call morales in reach.
[2024-07-23 09:42] LABS: Glycohemoglobin (HgbA1c) 5.5 % (4.0-5.6)
[2024-07-23] MEDS: COMPAZINE 5 MG IV (09:45)
--- NOTE | 2024-07-23 09:53 | W.PN.HOSP.TC ---
Today's Communication/Plan
-
Tylenol ATC
Lokelma
BB, Amiodarone
IV Abx
Assessment / Plan
Assessment / Plan
Physical Exam
General: Chronically ill looking, fatigue, no respiratory distress
HEENT: Moist mucous membranes and PERRLA
Respiratory: limited, no wheezes. i
Cardiac: S1/S2 and Regular Rhythm; No Murmur
GI: Soft, Non Tender, Non Distended and Normal Bowel Sounds
Musculoskeletal: No Clubbing, No Cyanosis and No Edema
Neuro: AO x 3
Hematologic/Lymphatic: Other (R IJ CVC in place.)
Patient is an 88y F with PMH significant for HTN, aortic stenosis and CHF who presents to ED complaining of chest pain. Taken emergently to dairy laboratory technician for STEMI.
# Her main issue today is right lower back pain consistent with sciatica/lumbar radiculopathy
Discussed with patient and her son. Will do Tylenol [id number] and limit oxycodone to only as needed to avoid side effects
#Coronary artery disease, presented with STEMI status post
Left heart catheterization with angioplasty to RCA
Currently no chest pain. Hemodynamically stable. Continue with triple therapy aspirin/Plavix/Eliquis but intention to discharge on Plavix/Eliquis.
Continue metoprolol
Continue with statin therapy
Appreciate cardiology input
# Reperfusion ventricular tachycardia 07/22 during catheterization, status post lidocaine drip. Continue with lunchroom monitor. Continue beta-sue. Back on amiodarone.
# Status post mechanical thrombectomy of a large thrombus during catheterization, large piece of tissue was sent to pathology for analysis.
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
Discitis / Epidural Abscess
- Afebrile / non-toxic at present.
- Continue current abx regimen for now (ampicillin / ceftriaxone).
- Obtain records from [facility] for review (culture data, GIANLUCA, etc).
- ID evaluation. Appreciate input,
- Follow temperature curve, etc.
#Paroxysmal Atrial Fibrillation
- In sinus rhythm at present. Has PPM in place.
- Continue Eliquis for stroke risk reduction.
#Chronic HFpEF
- LVEF normal on recent Echo. No evidence of volume overload on today's exam.
- Takes Lasix thrice weekly - will hold for now and follow I/Os, daily weights, etc.
#Benign Hypertension
- Stable. Continue metoprolol with holding parameters.
- Adjust med regimen as needed for adequate control.
#CKD IIIb
- Stable. Renal function at / near known baseline.
- Follow for any changes s/p cath.
# Hyperkalemia, not critical, changed to low potassium diet. Give 1 dose of Lokelma. Recheck BMP in a.m.
# Hyponatremia
#Anemia of Chronic Disease
- Stable. Hgb is at / near known baseline.
- Normocytic anemia.
- Follow for changes in H&H or evidence of gross bleeding - especially while on 3x therapy.
#GERD
- Stable. Continue daily PPI.
DVT Prophylaxis: Eliquis
Code Status: Discussed with racing mechanic and patient/her son Jarad. Patient will be temporarily changed to full code to treat possible post catheterization reversible V. tach
Discussed with son, we will change back to DNR once cardiac status stable.
Total time spent to see the patient, examine the patient, review data and lab result, discuss treatment plan with patient, her son, racing mechanic, nursing staff around 55 minutes
Anticipated Discharge: > 48 hours
Subjective/Interval History
-
Date of Service: July 23, 2024
She reports Right sided lower back pain
No chest pain
She feels tired
Objective Data
-
Labs:
Laboratory Results
07/23/24
04:15
WBC 11.9 H
Hgb 8.4 L D
Hct 25.5 L
Plt Count 310 D
Sodium 134 L
Potassium 5.3 H
Chloride 103
Carbon Dioxide 24
BUN 28 H
Creatinine 1.3 H
Glucose 139 H
Calcium 8.4
Vital Signs:
Vital Signs
Temp Pulse Resp BP Pulse Ox
97.3 F 60 17 129/60 99
07/23/24 08:00 07/23/24 08:18 07/23/24 08:00 07/23/24 08:18 07/23/24 08:18
I&O
07/22/24 07/23/24 07/24/24
06:59 06:59 06:59
Intake Total 1130 / 1130 100 / 100
Output Total 250 / 250
Balance 880 / 880 100 / 100
--- NOTE | 2024-07-23 10:19 | CON.ID ---
Consultation
-
Date/Time Consultation Requested: 07/22/2024 23:10
Date/Time Consultation Performed: 07/23/2024 0840
Requesting Provider: Dr. Stock
Performing Provider: Dr. Johnston
Reason for Consultation: Discitis
Chief Complaint / Past History
History of Present Illness
Karen Abdi is an 88-year-old female being evaluated at the request of Dr. Villela in regards to history of discitis on a prolonged course of IV antibiotics. History is obtained from chart review, along with patient interview.
The patient reports that she recently was admitted to [facility], during which time a 'spinal infection' was diagnosed. Thereafter, she was transferred to [facility], where she was to complete an additional 5 weeks of IV antibiotics. She
reports that she was at [facility] for approximately 1 week, but yesterday was brought to the emergency room after the development of chest pain. Workup suggested possible acute coronary syndrome, and the patient was subsequently taken to the
catheterization lab, where she was found to have a right coronary artery thrombus. Stenting was performed.
Additional history indicates history of TAVR in 2019 for, that she recently had had a GIANLUCA which suggested a vegetation on a non-aortic valve. She has been on ampicillin and ceftriaxone since discharge from [facility].
At this time, she admits to some right hip discomfort, but denies back pain. She denies any fevers or chills.
Past History
Additional Past Medical History:
HTN
HLD
DM
CAD; Hx recent MO
A-fib (on Eliquis)
GERD
Aortic stenosis
Hx breast cancer
Additional Past Surgical History:
PPM placement
PTCA with stenting (07/22/2024)
Bilateral mastectomy
TAVR (06/2023)
Allergy History:
No Known Allergies Allergy (Verified 07/22/24 18:33)
Medications Reviewed: Yes
Current Antibiotics:
Ampicillin 2 g IV every 6 hours
Ceftriaxone 2 g IV every 12 hours
Social History
Tobacco: Non-Smoker
Alcohol: None
Drug: None
Living: With Family
Family History
Family History: Not Pertinent
Review of Systems
Vital Signs
Temp Pulse Resp BP Pulse Ox
97.3 F 60 17 129/60 99
07/23/24 08:00 07/23/24 08:18 07/23/24 08:00 07/23/24 08:18 07/23/24 08:18
Physical Exam
Physical Exam
Constitutional: No Acute Distress, Comfortable and Non-toxic
Eyes: No Conjunctival Hemorrhage and Sclera Anicteric
Oral: No Thrush and No Ulcers
Cardiovascular: Regular Rate and S1/S2; Negative S3/S4
Pulmonary: Clear; Negative Wheezes, Rales or Rhonchi
Gastrointestinal: Soft, Non Tender, Non Distended and Normal Bowel Sounds
Genito-Urinary: Negative Muse
Extremities: Edema (1+); Negative Cyanosis, Erythema, Splinter Hemorrhage, Venous Insufficiency or [place]ay Lesions
Musculoskeletal: Negative Joint Swelling
Skin: Warm and Dry; Negative Rash or Jaundice
Neurological: Awake, Alert, Normal Muscle Strength and No Motor Deficits
Psychological: Calm
Lab / Diagnostic Study Results
07/23/24 04:15
07/23/24 04:15
Abs Immat Gran (auto) 0.2 10^3/uL (0-0.05) H 07/22/24 18:38
Absolute Neuts (auto) 7.5 10^3/uL (1.4-6.5) H 07/22/24 18:38
Absolute Lymphs (auto) 2.3 10^3/uL (1.2-3.4) 07/22/24 18:38
Absolute Monos (auto) 1.1 10^3/uL (0.1-0.6) H 07/22/24 18:38
Absolute Basos (auto) 0.1 10^3/uL (0-0.2) 07/22/24 18:38
Immature Gran % 1.4 % (0-0.5) H 07/22/24 18:38
Neutrophils % 65.6 % (42.2-75.2) 07/22/24 18:38
Lymphocytes % 20.0 % (20.5-51.1) L 07/22/24 18:38
Monocytes % 9.5 % (1.7-9.3) H 07/22/24 18:38
Eosinophils % 2.5 % (0-6) 07/22/24 18:38
Basophils % 1.0 % (0-2) 07/22/24 18:38
PT 16.0 Sec (11.4-14.6) H 07/22/24 18:38
INR 1.25 07/22/24 18:38
Lactic Acid 3.2 mmol/L (0.7-2.0) H 07/22/24 18:52
Microbiology Results
Micro:
07/22/24 23:58 MRSA Screen - Pending
Nose
Imaging:
07/22/2024 CXR (portable): Prosthetic aortic valve in place. Left-sided dual-lead cardiac pacemaker. No significant vascular congestion. No pneumothorax. No pleural effusion.
Assessment / Plan
CAD with STEMI s/p PCI to RCA (07/22/24)
Hx L1-2 discitis
- Dx at [facility]
- on prolonged course of IV antibiotics
Low-grade leukocytosis
HTN
HLD
DM
A-fib (on Eliquis)
GERD
Aortic stenosis
Hx breast cancer
Recommendations:
Continue with current course of ampicillin and ceftriaxone. Based upon antibiotic combination, prior infection may have been enterococcal in nature.
Await records from OSH for review, including microbiology, and prior treatment plan (ordered by Dr. Stock). None returned as of time of consultation.
Will continue to monitor white count and temperature curve.
[2024-07-23] MEDS: LOW STRENGTH ASPIRIN 81 MG PO (10:29)
[2024-07-23] MEDS: PROTONIX 40 MG PO (10:29)
[2024-07-23] MEDS: PACERONE 200 MG PO (10:29)
[2024-07-23] MEDS: TOPROL XL 25 MG PO (10:29)
[2024-07-23] MEDS: ELIQUIS 2.5 MG PO ×2 (10:30→20:41)
[2024-07-23] MEDS: PLAVIX 600 MG PO (10:33)
[2024-07-23] MEDS: LOKELMA 10 GRAM PO (10:35)
--- NOTE | 2024-07-23 11:08 | W.PN.CD ---
Today's Communication / Plan
-
Continue DAPT and Eliquis 2.5 mg twice daily
Stop aspirin upon discharge
Trend troponin to peak
Echo tomorrow
Impression / Plan
-
This is a 88 year old woman with past medical history of non-obstructive CAD, s/p TAVR, CHB s/p PPM, Afib on eliquis and amio, HFpEF, and recent admission for spinal infection and possible endocarditis now in rehab on IV antibiotics via PICC
line, who presented with acute onset chest pain and inferior STEMI on EKG, found to have RCA occlusion status post successful PCI.
Outpatient seed analysis laboratory assistant: Dr. Saeid Gilmore MD
CAD c/b STEMI s/p PCI to RCA 07/22/24
- 3.0x34 mm [place] posted to high pressure with 3.5 mm NC balloon
- initial DAPT with ASA/ticag will transition to ASA/Plavix given Eliquis; triple therapy ASA/Plavix/Eliquis while admitted, reduce to Eliquis/Plavix on discharge
- Continue home metop
- LDL 49. Continue high intensity statin.
- trend troponin to peak
- TTE, initiate GDMT as indicated
- eventual cardiac rehab
Afib
- cont. dose reduced eliquis and dose reduced amio 100 (reduced from 200 per Saeid Gilmore outpatient note)
HFpEF
- on 20 mg lasix MWF at home
- Appears euvolemic. Monitor for volume overload.
s/p TAVR
- will get echo, per report, no vegetation on valve
Endocarditis?
- per family report, recent admission for spinal infection with possible evidence of endocarditis
- need to obtain records
- TTE here
- obtain records of abx protocol and cont. abx via PICC, consider ID involvement if needed
CHB s/p PPM
- paced rhythm
- per recent outpatient notes, PPM functioning normally
Subjective: Lots of back pain this morning. Groin and wrist cath sites feel fine. No chest pain/pressure or shortness of breath. Telemetry unremarkable.
Physical Exam
Vital Signs/Labs
Vital Signs
Temp Pulse Resp BP Pulse Ox
97.3 F 75 17 129/60 98
07/23/24 08:00 07/23/24 10:30 07/23/24 08:00 07/23/24 08:18 07/23/24 08:30
07/22/24 07/23/24 07/24/24
06:59 06:59 06:59
Actual Weight 175 lb 11.335 oz
07/23/24 04:15
07/23/24 04:15
PT 16.0 Sec (11.4-14.6) H 07/22/24 18:38
INR 1.25 07/22/24 18:38
APTT 36.8 Sec (23.4-35.0) H 07/22/24 18:38
Magnesium 2.3 mg/dl (1.6-2.3) 07/22/24 23:54
Triglycerides 96 mg/dl (10-149) 07/23/24 04:15
LDL Cholesterol, Calc 49 mg/dl 07/23/24 04:15
VLDL Cholesterol, Calc 19 mg/dl (0-30) 07/23/24 04:15
HDL Cholesterol 35 mg/dl 07/23/24 04:15
LAB Results
07/22/24 07/22/24 07/23/24
19:01 22:02 04:15
Troponin I 0.066 H* 3.380 H* D 17.400 H* D
07/23/24
09:49
Troponin I 22.600 H* D
Physical Exam
Constitutional: Other (Mild distress due to back pain)
Cardiovascular: Rhythm & rate is regular, Pedal edema is absent, Systolic murmur present and S1S2 is normal
Respiratory: Respiratory effort normal and Lungs clear to auscul.
Other: Cath Site (No swelling, erythema, bleeding, soft)
Data Reviewed
-
Date of Service: July 23, 2024
Medical Decision Making: Reviewed Test Results, Independent Historian Assessment, Test Interpretation and Review of Case with other Provider
EKG: Tracing Personally Visualized and interpreted
Labs: Labs Reviewed by me
[2024-07-23] MEDS: TYLENOL 1000 MG PO ×3 (11:58→20:42)
[2024-07-23 17:27] LABS: Glucose - Point of Care 144 mg/dl (70-99)
[2024-07-23] MEDS: LIPITOR 40 MG PO (17:47)
[2024-07-23] MEDS: REMERON 7.5 MG PO (20:42)
--- NOTE | 2024-07-23 22:19 | PTCARENOTE ---
Assumed care of the pt @ 1900. Pt is AAOx3 A/V paced on the monitor VSS denies cp. Rt wrist cath site dsg c/d/i rt groin cath site rotary operator no bleeding or hematoma. Purewick in place. Call morales within reach.
[2024-07-23 23:37] LABS: Glucose - Point of Care 127 mg/dl (70-99)
[2024-07-24] VITALS (12 sets, daily range): BP systolic 94–117; BP diastolic 49–73; PULSE 68–69; O2SAT 96
[2024-07-24 04:21] LABS: Hematocrit 23.1 % (37.0-47.0); Hemoglobin 7.9 g/dL (12.0-16.0); Mean Corp Hgb Conc. 34.2 g/dL (33.0-37.0); Mean Corpuscular Hgb 31.7 pg (27.0-31.0); Mean Corpuscular Volume 92.8 fL (81.0-99.0); Mean Platelet Volume 10.2 fL (7.4-10.4); Platelet Count 280 10^3/uL (130-400); Red Blood Cell Count 2.49 10^6/uL (4.20-5.40); White Blood Cell Count 13.3 10^3/uL (4.8-10.8)
[2024-07-24 04:39] LABS: ALT (SGPT) 18 U/L (0-35); AST (SGOT) 92 U/L (14-36); Albumin 2.7 g/dl (3.5-5.0); Alkaline Phosphatase 130 U/L (38-126); Blood Urea Nitrogen 26 mg/dl (7-17); Calcium 8.7 mg/dl (8.4-10.2); Carbon Dioxide 24 mmol/L (22-30); Chloride 102 mmol/L (98-107); Estimated Creatinine Clearance 31 ml/min; Glucose 103 mg/dl (70-99); Magnesium 2.2 mg/dl (1.6-2.3); Potassium 4.2 mmol/L (3.5-5.1); Sodium 134 mmol/L (135-145); Total Bilirubin 0.5 mg/dl (0.2-1.3); Total Protein 5.6 g/dl (6.3-8.2); eGFR 36.64
[2024-07-24] MEDS: AMPICILLIN 108 MG IV ×4 (05:32→23:55)
--- NOTE | 2024-07-24 07:35 | W.PN.CD ---
Today's Communication / Plan
-
Echo today. Lasix ordered. Afternoon CBC. Then likely ready for discharge planning.
Impression / Plan
-
This is a 88 year old woman with past medical history of non-obstructive CAD, s/p TAVR, CHB s/p PPM, Afib on eliquis and amio, HFpEF, and recent admission for spinal infection and possible endocarditis now in rehab on IV antibiotics via PICC
line, who presented with acute onset chest pain and inferior STEMI on EKG, found to have RCA occlusion status post successful PCI.
Outpatient program specialist: Dr. Saeid Gilmore MD
CAD c/b STEMI s/p PCI to RCA 07/22/24
- 3.0x34 mm [place] posted to high pressure with 3.5 mm NC balloon
- initial DAPT with ASA/ticag will transition to ASA/Plavix given Eliquis; triple therapy ASA/Plavix/Eliquis while admitted, reduce to Eliquis/Plavix on discharge
- Continue home metop
- LDL 49. Continue high intensity statin.
- troponin peak at 22
- TTE today, adjust GDMT as indicated
- eventual cardiac rehab
Afib
- cont. dose reduced eliquis and dose reduced amio 100 (reduced from 200 per Saeid Gilmore outpatient note)
HFpEF
- on 20 mg lasix MWF at home
- some mild JUSTINE, will give 20 IV today
s/p TAVR
- will get echo, per report, no vegetation on valve
Anemia
- likely dilutional post cath and fluids
- will check CBC this afternoon
Endocarditis?
- per family report, recent admission for spinal infection with possible evidence of endocarditis
- need to obtain records
- TTE here
- obtain records of abx protocol and cont. abx via PICC, consider ID involvement if needed
CHB s/p PPM
- paced rhythm
- per recent outpatient notes, PPM functioning normally
Subjective: Groin and wrist cath sites feel fine. No chest pain/pressure or shortness of breath. Feels mildly overloaded in periphery. Telemetry unremarkable.
Physical Exam
Vital Signs/Labs
Vital Signs
Temp Pulse Resp BP Pulse Ox
36.8 C 70 16 117/56 94
07/24/24 03:37 07/24/24 06:00 07/24/24 03:37 07/24/24 03:38 07/24/24 03:38
07/23/24 07/24/24 07/25/24
06:59 06:59 06:59
Actual Weight 79.7 kg
07/24/24 03:43
07/24/24 03:43
PT 16.0 Sec (11.4-14.6) H 07/22/24 18:38
INR 1.25 07/22/24 18:38
APTT 36.8 Sec (23.4-35.0) H 07/22/24 18:38
Magnesium 2.2 mg/dl (1.6-2.3) 07/24/24 03:43
Triglycerides 96 mg/dl (10-149) 07/23/24 04:15
LDL Cholesterol, Calc 49 mg/dl 07/23/24 04:15
VLDL Cholesterol, Calc 19 mg/dl (0-30) 07/23/24 04:15
HDL Cholesterol 35 mg/dl 07/23/24 04:15
LAB Results
07/22/24 07/22/24 07/23/24
19:01 22:02 04:15
Troponin I 0.066 H* 3.380 H* D 17.400 H* D
07/23/24 07/23/24 07/23/24
09:49 16:19 22:00
Troponin I 22.600 H* D 19.900 H* Cancelled
Physical Exam
Constitutional: No acute distress
Cardiovascular: Rhythm & rate is regular
Respiratory: Respiratory effort normal
Neuro/Psych: AO x 3
Other: Cath Site (cdi) and Other (mild JUSTINE)
Data Reviewed
-
Date of Service: July 24, 2024
Medical Decision Making: Reviewed Test Results and Tests Ordered
EKG: Tracing Personally Visualized and interpreted and Report Reviewed by me
Echo: Tracing Personally Visualized and interpreted and Report Reviewed by me
X-Ray/CT/US/MRI/NUC/PET: Image Personally Visualized and interpreted and Report Reviewed by me
Medical Tests (PFT, Pathology etc): Image Personally Visualized and interpreted and Report Reviewed by me
Labs: Labs Reviewed by me and Labs Ordered by me
Old Records: Requested
[2024-07-24 07:42] LABS: Glucose - Point of Care 112 mg/dl (70-99)
[2024-07-24] MEDS: ELIQUIS 2.5 MG PO ×2 (07:57→21:10)
[2024-07-24] MEDS: TOPROL XL 25 MG PO (07:58)
[2024-07-24] MEDS: PACERONE 100 MG PO (07:58)
[2024-07-24] MEDS: PLAVIX 75 MG PO (07:58)
[2024-07-24] MEDS: PROTONIX 40 MG PO (07:58)
[2024-07-24] MEDS: TYLENOL 1000 MG PO ×4 (07:58→21:09)
[2024-07-24] MEDS: LOW STRENGTH ASPIRIN 81 MG PO (07:58)
[2024-07-24] MEDS: LASIX 20 MG IV (07:59)
--- NOTE | 2024-07-24 09:04 | W.PN.ID1 ---
Date of Service
Date of Service: July 24, 2024
Today's Communication
Continue antibiotics. Await records.
Assessment / Plan
CAD with STEMI s/p PCI to RCA (07/22/24)
Hx L1-2 discitis
- Dx at [facility]
- on 6 week course of IV antibiotics
Low-grade leukocytosis
HTN
HLD
DM
A-fib (on Eliquis)
GERD
Aortic stenosis
Hx breast cancer
Recommendations:
Continue with current course of ampicillin and ceftriaxone. Based upon antibiotic combination, prior infection may have been enterococcal in nature.
Await records from OSH for review, including microbiology, and prior treatment plan (ordered by Dr. Stock). None returned as of the present.
Will continue to monitor white count and temperature curve.
Chief Complaint
-: Other (Hx L1-2 discitis)
Subjective / Review of Systems
Patient seen and examined. Denies chest pain. Reports ongoing low back pain without change.
Review of Systems: No Fever and No Chills
Vital Signs / Physical Exam
Vital Signs
Vital Signs
Temp Pulse Resp BP Pulse Ox
98.3 F 75 22 117/72 95
07/24/24 08:00 07/24/24 08:00 07/24/24 08:00 07/24/24 08:00 07/24/24 08:00
Physical Exam
Constitutional: No Acute Distress, Comfortable, Chronically Ill and Non-toxic
Eyes: Sclera Anicteric
Cardiovascular: S1/S2; Negative S3/S4
Pulmonary: Non Labored
Gastrointestinal: Soft, Non Tender and Non Distended
Neurological: Awake and Alert
Psychological: Calm
Lines: PICC (Right ACW)
Objective Data
Lab Data
Lab Results
07/24/24 03:43
PT 16.0 Sec (11.4-14.6) H 07/22/24 18:38
INR 1.25 07/22/24 18:38
APTT 36.8 Sec (23.4-35.0) H 07/22/24 18:38
Estimated Creat Clear 31 ml/min 07/24/24 03:43
Lactic Acid 3.2 mmol/L (0.7-2.0) H 07/22/24 18:52
Total Bilirubin 0.5 mg/dl (0.2-1.3) 07/24/24 03:43
AST 92 U/L (14-36) H 07/24/24 03:43
ALT 18 U/L (0-35) 07/24/24 03:43
Alkaline Phosphatase 130 U/L (38-126) H 07/24/24 03:43
Most recent labs reviewed.
Micro Results:
07/22/24 23:58 MRSA Screen - Final
Nose No Methicillin Resistant Staphylococcus aureus isolated.
Imaging:
07/22/2024 CXR (portable): Prosthetic aortic valve in place. Left-sided dual-lead cardiac pacemaker. No significant vascular congestion. No pneumothorax. No pleural effusion.
--- NOTE | 2024-07-24 10:40 | WOUNDNOTE ---
WO RN note: Patient admitted with Acute coronary syndrome.
See H&P for complete history.
PMH: 88-year-old female with a past medical history of hypertension, hyperlipidemia, diabetes, CAD, CHF, atrial fibrillation on Eliquis, pacemaker who presents to the emergency department via EMS for evaluation of chest pain. Of note patient has
been at [facility] for rehab after recent hospitalization at [facility] for 'spinal infection' for which she is undergoing treatment with IV antibiotics via PICC line.
Wound Location and type/assessment: Patient admitted with: MASD of buttocks, blanchable red, no open wounds. Patient states buttocks is sore where palpated. Scattered bruising on body. Heels are also blanchable red. R groin cath site with bruise
and keloid scar. Patient is on Eliquis.
Appetite: Good
Pressure redistribution devices in place: Accumax, turns self in bed. Repositioned patient to R semi side lying position.
Plan: Sacral silicone foam applied to sacrum and buttocks, adhesive foams applied to heels.
Will confirm orders with hospitalist and updated nurse Nicolas who assisted with care.
Updated care plan and will follow as needed.
Note to case management of equipment requested for discharge: None
--- NOTE | 2024-07-24 10:41 | WOUNDNOTE ---
WO RN note: Patient admitted with
See H&P for complete history.
PMH: 88-year-old female with a past medical history of hypertension, hyperlipidemia, diabetes, CAD, CHF, atrial fibrillation on Eliquis, pacemaker who presents to the emergency department via EMS for evaluation of chest pain. Of note patient has
been at [facility] for rehab after recent hospitalization at [facility] for 'spinal infection' for which she is undergoing treatment with IV antibiotics via PICC line.
Wound Location and type/assessment: Patient admitted with: MASD of buttocks, blanchable red, no open wounds. Patient states buttocks is sore where palpated. Scattered bruising on body. Heels are also blanchable red. R groin cath site with bruise
and keloid scar. Patient is on Eliquis.
Appetite: Good
Pressure redistribution devices in place: Accumax, turns self in bed. Repositioned patient to R semi side lying position.
Plan: Sacral silicone foam applied to sacrum and buttocks, adhesive foams applied to heels.
Will confirm orders with hospitalist and updated nurse Nicolas who assisted with care.
Updated care plan and will follow as needed.
Note to case management of equipment requested for discharge: None
[2024-07-24] MEDS: ROCEPHIN 2000 MG IV ×2 (12:15→23:55)
[2024-07-24] MEDS: STERILE WATER FOR INJECTION 20 ML IV ×2 (12:16→23:55)
--- NOTE | 2024-07-24 12:34 | CM ---
spoke to pt and son in room, roger marilin garcia, lives with her husb i a 1 story home with a ramp to enter. she is transfered to from [facility] where she is still completing her skilled rehab and IV Antibx at [facility]. she would like to return
there when medically stable. called [facility], referral faxed. cm to get auth for poss tomorrow dc.
--- NOTE | 2024-07-24 12:47 | W.PN.HOSP.TC ---
Today's Communication/Plan
-
ECHO pending
Labs pending
Possible discharge today per D/W Cards pending above
Assessment / Plan
Assessment / Plan
88-year-old female presented with chest pain went to [facility] emergently for STEMI. She has history of TAVR with recent hospitalization for discitis and endocarditis. She was hospitalized at [facility] with complaints of back pain. Was
found to have vertebral compression fracture at the time and discitis and epidural abscess. She also had positive blood cultures GIANLUCA was done which showed small vegetation on [place] valve(not on TAVR) she was started on IV ampicillin and
ceftriaxone had a line placed in right IJ and was discharged to rehab. Patient was admitted from the rehab with substernal chest tightness.
CVS: S1-S2 normal
Chest: CTA B/L
Abdomen: Soft, NT / Bowel sounds present
Extremities: No edema
# Coronary artery disease presented with STEMI
Status post left heart cath with angioplasty stent to RCA
Continue aspirin, Plavix, Eliquis. Plan to discharge with Plavix and Eliquis
Continue metoprolol and statin
Status post mechanical thrombectomy of a large thrombus during catheterization, large piece of tissue was sent to pathology for analysis.
Troponin trending down
Cardiology following
Rpt echo today- read pending.
# Reperfusion VT on 419 status post lidocaine drip
Currently on beta-sue and amiodarone
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
Discitis / Epidural Abscess
Continue ampicillin and ceftriaxone
Obtain records from [facility]
ID evaluation
# Right low back pain
# Chronic HFpEF
EF normal on recent echo
Takes Lasix 3 times a week
# Hypertension-continue metoprolol
# CKD stage III
Mild hypokalemia-treat
# Hyponatremia- Lasix today secondary to fluid overload
# Anemia of chronic disease
# Atherosclerosis/hyperlipidemia-continue statin
# Mental health disorder-continue mirtazapine
# Diet controlled diabetes-sugars stable
# Multilevel degenerative disc disease with grade 1 spondylolisthesis of L4 on L5
# Aortic stenosis with history of TAVR
# History of breast cancer with bilateral mastectomy in 1999
# Pacemaker placement
# GERD-continue PPI
# Hypoalbuminemia
# DVT prophylaxis-Eliquis
# Full code now
D/W RN
D/W Cards
D/W SOn at bed side
Anticipated Discharge: Within 24 hours
Subjective/Interval History
-
Date of Service: July 24, 2024
Objective Data
-
Labs:
Laboratory Results
07/24/24 07/24/24
03:43 12:33
WBC 13.3 H Pending
Hgb 7.9 L Pending
Hct 23.1 L Pending
Plt Count 280 Pending
Sodium 134 L
Potassium 4.2
Chloride 102
Carbon Dioxide 24
BUN 26 H
Creatinine 1.4 H
Glucose 103 H
Calcium 8.7
Total Bilirubin 0.5
AST 92 H
ALT 18
Alkaline Phosphatase 130 H
Vital Signs:
Vital Signs
Temp Pulse Resp BP Pulse Ox
98.6 F 69 22 94/51 93
07/24/24 12:11 07/24/24 12:11 07/24/24 12:11 07/24/24 12:11 07/24/24 12:11
I&O
07/23/24 07/24/24 07/25/24
06:59 06:59 06:59
Intake Total 1130 / 1130 300 / 300
Output Total 250 / 250 300 / 300 375 / 375
Balance 880 / 880 0 / 0 -375 / -375
[2024-07-24 12:59] LABS: Hematocrit 24.2 % (37.0-47.0); Hemoglobin 7.8 g/dL (12.0-16.0); Mean Corp Hgb Conc. 32.2 g/dL (33.0-37.0); Mean Corpuscular Hgb 31.2 pg (27.0-31.0); Mean Corpuscular Volume 96.8 fL (81.0-99.0); Mean Platelet Volume 10.4 fL (7.4-10.4); Platelet Count 274 10^3/uL (130-400); Red Cell Dist. Width 14.2 % (11.5-14.5); White Blood Cell Count 14.8 10^3/uL (4.8-10.8)
--- NOTE | 2024-07-24 14:26 | W.PN.UPDATE ---
Update Note
Progress Note Update
Outpatient records from [place] reviewed
She presented with back pain of initially was seen at [facility] and was discharged with a walker. She was then sent to a rehab and taken to [facility].
CTA/P--sludge within the gallbladder stranding adjacent to the pancreatic head, perianal edematous changes atherosclerotic changes, spondylosis L4-L5 level. Compression deformity L3 vertebral body
CT scan results from [facility] 06/28/24-moderate L3 vertebral compression fracture which is increased in degree compared to the prior lumbosacral spine radiographs from 08/19/2023
Patient has a history of fall August 2023 with a lumbar fracture.
MRI of the lumbar spine rim-enhancing epidural collection compatible with abscess with degenerative changes with severe spinal canal narrowing L2, L3, L4 with marrow edema and enhancement. Throughout L3 and superior endplate L4. Findings
concerning the combination of recent L3 compression fracture with moderate height loss as well as osteomyelitis in the opposing L3-L4 endplates. Multilevel DJD and chronic L4 pars defect
Echo with mitral valvular vegetation-TTE mobile mass attached to mitral valve consistent with vegetation. Prosthetic arctic valve with no obvious vegetation.
Echo 07/08/2024-normal LV size, mild concentric LVH. Normal LV systolic function without segmental wall motion abnormalities. EF 60 to 65%. Abnormal LV diastolic function. Grade 1 diastolic dysfunction. Normal RV size. Pacemaker ICD present in
the RV. LA not well-visualized. RA is dilated. IVC diameter 21 mmHg with greater than 50% decrease during inspiration consistent with mildly elevated RA pressure. Thickened and moderately calcified mitral valve leaflets. There is moderate
mitral annular calcification. Mobile mass attached to atrial surface of anterior mitral leaflet consistent with vegetation. No MS. Moderate MR. Normal tricuspid valve PA pressure 48 mmHg. Aortic valve not well-visualized. TAVR is well-seated.
No aortic stenosis. Pulmonic valve not well-visualized. Aorta not well-visualized root is normal size. Trivial circumferential pericardial effusion no tamponade
GIANLUCA 07/11/2024-large and mobile vegetation attached to the atrial aspect of the anterior leaflet of the mitral valve. Mild to moderate MR. No abscess. Normal LV size and thickness. EF 55 to 60%. Pacemaker lead is present in the right ventricle no
apparent vegetation. Basically in the right atrium no vegetation. Bioprosthetic valve present in the aortic position normal. Well-seated. No vegetation. No vegetation in the tricuspid valve. Mild to moderate TR.
Blood culture on 07/04/2024 growing Enterococcus faecalis
medical history history of epidural abscess, bacterial endocarditis, anxiety, breast cancer, diabetes, hypertension, MT, coronary artery disease, paroxysmal atrial fibrillation, hyponatremia, elevated creatinine 1.29
Patient preferred to hold off on surgical intervention if did not improve laminectomy for decompression was to be considered.
Status post IR L3 bone biopsy on 07 10-there was discussion about lifelong suppressive therapy following IV antibiotics.
Repeat blood cultures obtained for 325 negative
L3 bone biopsy culture on 07 10 no growth
Infectious disease advised 6 to 8-week course of antibiotics
PICC line was placed on 07/12/2024
Outpatient medicines from [facility]-amiodarone 200 mg daily
Eliquis 5 mg twice daily
Aspirin 81 mg daily
Lasix 20 mg twice daily
Metoprolol XL 25 mg daily
Protonix 40 mg daily
This Zocor 20 mg daily
Remeron 7.5 mg at bedtime
MiraLAX 17 g daily
Potassium chloride 20 mEq daily
Ampicillin 2 g IV every 6 hours
Ceftriaxone 2 g IV every 12
I do not see microbiology results with sensitivities.
Discussed with case management. COVID test ordered for tomorrow for discharge planning for tomorrow.
Total time spent between reviewing records and patient encounter today more than 50 minutes.
[2024-07-24] MEDS: LIPITOR 40 MG PO (18:15)
--- NOTE | 2024-07-24 19:08 | PTCARENOTE ---
~[id number]: Received report from nightshift RN. Pt AOx4; v paced on tele, murmur noted at this time, provider made aware; 95% RA. patient denies pain at this time. R subclavian PICC line in place, flushed with blood return. External catheter in
place at this time. 20 lasix given with meds this AM. I/Os charted. R radial puncture site and R femoral punture site P[employer]ER [employer]USAGE [employer] WIENER and scabbed. Sacrum pink blanchable, turning assistance provided. All needs met at this time, call morales within reach.
~[id number]: Attempt to get OOB with Ax2, upon standing patient s/o dizziness SBP 98. Patient back in bed at this time, will attempt to get OOB later. Informed provider of events, PT consulted. Wound nurse assessed patient, sacrum foam applied. Heels
red and blanchable, heel foams applied as well. Pt son visited. All needs met at this time, call morales within reach.
[id number]: Labs obtained and sent. Scheduled Abx given.
~[id number]: IV team assessed PICC line and redressed. PT worked with patient to get OOB. Patient walked to bathroom with PT and back to bed. ECHO completed bedside.
~[id number]: Pt in bed, turning and repositioning provided. No complaints at this time. All needs met, call morales within reach. handoff report given to nightshipablo RN.
[2024-07-24] MEDS: REMERON 7.5 MG PO (21:09)
[2024-07-25] VITALS (7 sets, daily range): BP systolic 99–124; BP diastolic 51–69
--- NOTE | 2024-07-25 02:21 | PTCARENOTE ---
Assumed care of the pt @ 1900. Pt is AAOx3 A/V paced on the monitor VSS. Purewick in place draining yellow urine. POC discussed with pt. Call morales within reach.
[2024-07-25 03:34] LABS: COVID-19 Antigen Negative (Negative)
[2024-07-25] MEDS: AMPICILLIN 108 MG IV ×2 (05:48→12:21)
--- NOTE | 2024-07-25 07:55 | W.PN.CD ---
Today's Communication / Plan
-
1U pRBC and 20 IV lasix
CBC/BMP end of week, if concern for ongoing blood loss will need CTAP
reduced from eliquis/plavix/asa to eliquis/plavix only at discharge
patient to arrange follow up with Dr. Gilmore this week
if doing well post-transfusion, ok for discharge today
Impression / Plan
-
This is a 88 year old woman with past medical history of non-obstructive CAD, s/p TAVR, CHB s/p PPM, Afib on Eliquis and amio, HFpEF, and recent admission for spinal infection and possible endocarditis now in rehab on IV antibiotics via PICC
line, who presented with acute onset chest pain and inferior NSTEMI on EKG, found to have RCA occlusion status post successful PCI.
Outpatient loader machine: Dr. Saeid Gilmore MD
CAD c/b STEMI s/p PCI to RCA 07/22/24
- 3.0x34 mm Pro [place] posted to high pressure with 3.5 mm NC balloon
- initial DAPT with ASA/ticag will transition to ASA/Plavix given Eliquis; triple therapy ASA/Plavix/Eliquis while admitted, reduce to Eliquis/Plavix on discharge
- Continue home metop
- LDL 49. Continue high intensity statin.
- troponin peak at 22
- TTE today, inferior RWMA with normal EF
- eventual cardiac rehab
Afib
- cont. dose reduced eliquis and dose reduced amio 100 (reduced from 200 per Saeid Gilmore outpatient note)
Anemia
- likely dilutional post cath and fluids
- continues to slowly downtrend (8.4-->7.9-->7.5 today).
- no s/s bleeding, groin sites look clean, hemodynamically stable
- will give 1U pRBC given valvular disease and recent ischemia, and check again at end of week; if not appropriately rising, will plan for outpatient CTAP
HFpEF
- one more dose of 20 IV here with blood
- cont. 20 mg lasix MWF at home
s/p TAVR
- will get echo, per report, no vegetation on valve
Mitral valve antibiotics
- cont. suppressive antibiotics, will need follow up echo after course completion, may need consideration for lifelong suppression
- echo here reviewed personally, no evidence of vegetation seen, mild-mod MR
CHB s/p PPM
- paced rhythm
- per recent outpatient notes, PPM functioning normally
CKD
- stable
- BMP at end of week
Subjective: Groin and wrist cath sites feel fine. No chest pain/pressure or shortness of breath. Telemetry unremarkable.
TTE 07/24/2024 CONCLUSIONS
Normal biventricular size and global systolic function. Left ventricular
ejection fraction is 55-60% by volumetric assessment.
Basal to mid inferior and inferolateral hypokinesis.
Moderate mitral regurgitation.
Well seated normally functioning bioprosthetic aortic valve(S/p 26 mm Álvarez
Annabella transcatheter aortic valve replacement).
Compared to the prior on 08/04/2023, the regional wall motion abnormalities
appear new and moderate mitral regurgitation is now seen.
Physical Exam
Vital Signs/Labs
Vital Signs
Temp Pulse Resp BP Pulse Ox
36.8 C 60 16 120/60 93
07/25/24 07:33 07/25/24 03:11 07/25/24 03:11 07/25/24 07:35 07/25/24 07:33
07/24/24 12:33
07/24/24 03:43
PT 16.0 Sec (11.4-14.6) H 07/22/24 18:38
INR 1.25 07/22/24 18:38
APTT 36.8 Sec (23.4-35.0) H 07/22/24 18:38
Magnesium 2.2 mg/dl (1.6-2.3) 07/24/24 03:43
Triglycerides 96 mg/dl (10-149) 07/23/24 04:15
LDL Cholesterol, Calc 49 mg/dl 07/23/24 04:15
VLDL Cholesterol, Calc 19 mg/dl (0-30) 07/23/24 04:15
HDL Cholesterol 35 mg/dl 07/23/24 04:15
LAB Results
07/22/24 07/22/24 07/23/24
19:01 22:02 04:15
Troponin I 0.066 H* 3.380 H* D 17.400 H* D
07/23/24 07/23/24 07/23/24
09:49 16:19 22:00
Troponin I 22.600 H* D 19.900 H* Cancelled
Physical Exam
Constitutional: No acute distress and Comfortable
Cardiovascular: Rhythm & rate is regular
Respiratory: Respiratory effort normal
Neuro/Psych: AO x 3
Data Reviewed
-
Date of Service: July 25, 2024
Echo: Tracing Personally Visualized and interpreted
[2024-07-25] MEDS: LOW STRENGTH ASPIRIN 81 MG PO (08:17)
[2024-07-25] MEDS: PROTONIX 40 MG PO (08:17)
[2024-07-25] MEDS: PACERONE 100 MG PO (08:17)
[2024-07-25] MEDS: TYLENOL 1000 MG PO ×2 (08:17→15:45)
[2024-07-25] MEDS: PLAVIX 75 MG PO (08:17)
[2024-07-25] MEDS: ELIQUIS 2.5 MG PO (08:17)
[2024-07-25] MEDS: TOPROL XL 25 MG PO (08:17)
[2024-07-25 08:42] LABS: Hematocrit 23.7 % (37.0-47.0); Hemoglobin 7.5 g/dL (12.0-16.0); Mean Corp Hgb Conc. 31.6 g/dL (33.0-37.0); Mean Corpuscular Volume 97.9 fL (81.0-99.0); Platelet Count 246 10^3/uL (130-400); Red Blood Cell Count 2.42 10^6/uL (4.20-5.40); Red Cell Dist. Width 14.3 % (11.5-14.5); White Blood Cell Count 9.6 10^3/uL (4.8-10.8)
[2024-07-25] MEDS: LIDOCAINE 4% PATCH 1 PATCH TOPICAL (09:05)
[2024-07-25] MEDS: ROXICODONE 5 MG PO ×2 (09:09→16:58)
[2024-07-25] MEDS: SENOKOT 17.2 MG PO (09:09)
[2024-07-25] MEDS: MIRALAX 17 GRAMS PO (09:09)
--- NOTE | 2024-07-25 09:17 | W.PN.HOSP.TC ---
Addendum entered and electronically signed by Laurence Dent MD 07/25/24 16:00:
More than 30 minutes spent in discharge including
Final examination of the patient
Summarizing hospital stay
Instructions for continuing care to all relevant caregivers
Preparation of discharge records, prescriptions, and referral forms
Total time spent (in minutes): 51 min
Original Note:
Today's Communication/Plan
-
Would recheck labs after transfusion.
Possible discharge today.
Will discuss with ID regarding final date of antibiotics . Patient may need to follow-up with infectious disease at [facility] to find out if she needs suppressive antibiotics long-term. PICC line to be removed after completion of
antibiotics.
Will discuss the dosing of Lasix at discharge.
Assessment / Plan
Assessment / Plan
88-year-old female presented with chest pain went to [facility] emerg[facility] for STEMI. She has history of TAVR with recent hospitalization for discitis and endocarditis. She was hospitalized at [facility] with complaints of back pain. Was
found to have vertebral compression fracture at the time and discitis and epidural abscess. She also had positive blood cultures GIANLUCA was done which showed small vegetation on [place] valve(not on TAVR) she was started on IV ampicillin and
ceftriaxone had a line placed in right IJ and was discharged to rehab. Patient was admitted from the rehab with substernal chest tightness.
CVS: S1-S2 normal, systolic murmur at apex
Chest: CTA B/L
Abdomen: Soft, NT / Bowel sounds present
Extremities: No edema
# Anemia with a hemoglobin of 7.5
Doubt hemolysis as bilirubin is normal but check haptoglobin and LDH
Benefits and risks of blood transfusion discussed with patient and son
In the light of recent cardiac event and that the patient needs physical therapy, especially since she has symptoms of anemia such as lack of energy and tiredness we will transfuse 1 unit of blood
Iron studies ordered pending
# Coronary artery disease presented with STEMI
Status post left heart cath with angioplasty stent to RCA
Continue aspirin, Plavix, Eliquis. Plan to discharge with Plavix and Eliquis
Continue metoprolol and statin
Status post mechanical thrombectomy of a large thrombus during catheterization, large piece of tissue was sent to pathology for analysis.
Troponin trended down
Cardiology following
Rpt echo 10/22/2024-normal biventricular size and global systolic function. EF 55 to 60%. Basal to mid inferior and inferolateral hypokinesis. Moderate MR. Well-seated normally functioning bioprosthetic aortic valve. Compared to 08/04/2023
regional wall motion abnormalities appear to be new and moderate MR is now seen.
# Reperfusion VT on 07/22 status post lidocaine drip
Currently on beta-sue and amiodarone
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
OP Records reviewed.
GIANLUCA 07/11/2024-large and mobile vegetation attached to the atrial aspect of the anterior leaflet of the mitral valve. Mild to moderate MR. No abscess. Normal LV size and thickness. EF 55 to 60%. Pacemaker lead is present in the right ventricle no
apparent vegetation. Bioprosthetic valve present in the aortic position normally well-seated no vegetation. No vegetation of the tricuspid valve. Mild to moderate TR.
Repeat blood cultures 07/06/2024-no growth
L3 bone biopsy on 07/10/2024 with no growth
PICC line was placed on 07/12/2024
MRI of the lumbar spine with rim-enhancing epidural collection compatible with abscess and degenerative changes with severe spinal canal narrowing L2, L3, L4 with marrow edema and enhancement. Throughout L3 and superior endplate L4 findings
concerning compression fracture and moderate height loss as well as osteomyelitis in the opposing L3/L4 endplates .
Patient preferred to hold off on surgical intervention if did not improve laminectomy for decompression was to be considered.
There was discussion about lifelong suppressive therapy following IV antibiotics.
Continue ampicillin and ceftriaxone
ID evaluation appreciated.
# Right low back pain-pain control with lidocaine patch, Tylenol and oxycodone. PT OT
# Chronic HFpEF
EF normal on recent echo
Takes Lasix 3 times a week
BMP pending
# Hypertension-continue metoprolol
# CKD stage III
# Hyponatremia- labs pending.
# Atherosclerosis/hyperlipidemia-continue statin
# Mental health disorder-continue mirtazapine
# Diet controlled diabetes-sugars stable
# Multilevel degenerative disc disease with grade 1 spondylolisthesis of L4 on L5
# Aortic stenosis with history of TAVR
# History of breast cancer with bilateral mastectomy in 1999
# Pacemaker placement
# GERD-continue PPI
# Hypoalbuminemia
# DVT prophylaxis-Eliquis
# Full code now
D/W RN
D/W Cards
D/W ID
D/W Son on the phone. He is agreeable for blood transfusion. He is paying $500 every day for a bed hold and would prefer to get patient discharged as early -as stable- as possible. Would recheck labs after transfusion.
Possible discharge today.
Will discuss with ID regarding final date of antibiotics . Patient may need to follow-up with infectious disease at [facility] to find out if she needs suppressive antibiotics long-term. PICC line to be removed after completion of
antibiotics.
Will discuss the dosing of Lasix at discharge.
time spent over 50 min
Anticipated Discharge: Within 24 hours
Subjective/Interval History
-
Date of Service: July 25, 2024
Objective Data
-
Labs:
Laboratory Results
07/25/24
08:28
WBC 9.6
Hgb 7.5 L
Hct 23.7 L
Plt Count 246
Sodium Pending
Potassium Pending
Chloride Pending
Carbon Dioxide Pending
BUN Pending
Creatinine Pending
Glucose Pending
Calcium Pending
Vital Signs:
Vital Signs
Temp Pulse Resp BP Pulse Ox
97.7 F 67 20 120/60 96
07/25/24 08:00 07/25/24 08:17 07/25/24 08:00 07/25/24 08:17 07/25/24 08:00
I&O
07/24/24 07/25/24 07/26/24
06:59 06:59 06:59
Intake Total 300 / 300
Output Total 300 / 300 375 / 375
Balance 0 / 0 -375 / -375
[2024-07-25 10:23] LABS: AST (SGOT) 49 U/L (14-36); Iron 32 ug/dl (37-170); LDH 391 U/L (120-246)
[2024-07-25 10:33] LABS: Percent Saturation 18 % (20-50); Total Iron Binding Capacity 171 ug/dl (265-497)
--- NOTE | 2024-07-25 10:49 | CM ---
authorization obtained- awaiting medical clearance. bed avail. spoke to jake and son.
[2024-07-25 10:55] LABS: Blood Urea Nitrogen 26 mg/dl (7-17); Calcium 8.5 mg/dl (8.4-10.2); Carbon Dioxide 24 mmol/L (22-30); Chloride 102 mmol/L (98-107); Estimated Creatinine Clearance 29 ml/min; Glucose 115 mg/dl (70-99); Potassium 3.8 mmol/L (3.5-5.1); Sodium 133 mmol/L (135-145); eGFR 33.73
[2024-07-25 11:19] LABS: Vitamin B12 845 pg/ml (239-931)
[2024-07-25] MEDS: ROCEPHIN 2000 MG IV (12:21)
[2024-07-25] MEDS: STERILE WATER FOR INJECTION 20 ML IV (12:22)
--- NOTE | 2024-07-25 13:18 | W.PN.ID1 ---
Date of Service
Date of Service: July 25, 2024
Today's Communication
Continue antibiotics.
Assessment / Plan
CAD with STEMI s/p PCI to RCA (07/22/24)
Hx L1-2 discitis / L2-4 epidural abscess
- Dx at [facility]
- on 6-8 week course of IV antibiotics
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
Low-grade leukocytosis
HTN
HLD
DM
A-fib (on Eliquis)
GERD
Aortic stenosis
Hx breast cancer
Recommendations:
Continue with current course of ampicillin and ceftriaxone.
Patient for return back to long term facility to complete previously determined course of antibiotics (likely for at least an additional 4-5 weeks)
Patient will need close follow-up with her managing Infectious Diseases physicians following her at [facility].
����������������������������������������������������������
Chief Complaint
-: Other (Hx L1-2 discitis; enterococcal endocarditis)
Subjective / Review of Systems
Review of Systems: No Fever and No Chills
Vital Signs / Physical Exam
Vital Signs
Vital Signs
Temp Pulse Resp BP Pulse Ox
98.2 F 65 20 116/55 95
07/25/24 11:40 07/25/24 11:40 07/25/24 11:40 07/25/24 11:40 07/25/24 11:15
Physical Exam
Constitutional: No Acute Distress, Comfortable, Chronically Ill and Non-toxic
Eyes: Sclera Anicteric
Cardiovascular: S1/S2; Negative S3/S4
Pulmonary: Non Labored
Gastrointestinal: Soft, Non Tender and Non Distended
Neurological: Awake and Alert
Psychological: Calm
Lines: PICC (Right ACW)
Objective Data
Lab Data
Lab Results
07/25/24 09:54
PT 16.0 Sec (11.4-14.6) H 07/22/24 18:38
INR 1.25 07/22/24 18:38
APTT 36.8 Sec (23.4-35.0) H 07/22/24 18:38
Estimated Creat Clear 29 ml/min 07/25/24 09:54
Lactic Acid 3.2 mmol/L (0.7-2.0) H 07/22/24 18:52
Total Bilirubin 0.5 mg/dl (0.2-1.3) 07/24/24 03:43
ALT 18 U/L (0-35) 07/24/24 03:43
Alkaline Phosphatase 130 U/L (38-126) H 07/24/24 03:43
AST 49 U/L (14-36) H 07/25/24 09:54
Most recent labs reviewed.
Micro Results:
07/22/24 23:58 MRSA Screen - Final
Nose No Methicillin Resistant Staphylococcus aureus isolated.
Imaging:
07/22/2024 CXR (portable): Prosthetic aortic valve in place. Left-sided dual-lead cardiac pacemaker. No significant vascular congestion. No pneumothorax. No pleural effusion.
[2024-07-25] MEDS: LASIX 20 MG PO (14:57)
--- NOTE | 2024-07-25 15:59 | W.DS.TRANS ---
Addendum entered and electronically signed by Laurence Dent MD 07/26/24 07:52:
Dictation- [id number]
Original Note:
DC Summary - [employer]
-
Discharge Instructions:
Discharge Diagnosis/Procedures STEMI with stent to RCA
Anemia
[place] valve endocarditis-mitral valve-
Enterococcus faecalis blood culture for 125
Epidural abscess/osteomyelitis L2-L3-L4 area
Chronic HFpEF
Hypertension
CKD stage III
Atherosclerosis/hyperlipidemia
Depression
Aortic stenosis with history of TAVR
History of breast cancer
GERD
MASD Gluteal area
Diet 2 Gram Sodium,Restrict fluids to 64 oz
Activity As tolerated,With assistance
Driving Restrictions No driving
Blood Work cbc, BMP 3 days and then weekly after that.
Others Tests Further SPine imaging and ECHO per Outpatient
doctors
Other Services PT,OT
Specialty Instructions Weigh Daily
Instructions:
Stand-Alone Forms:
Changes to Home Medications: Yes
Discharge Medications:
DC Medications w/original date entered in [employer]
furosemide 20 mg tablet 20 mg PO .MOWEFR@0800, 1700 Fluid Retention/Swelling 04/19/23
metoprolol succinate 25 mg tablet,extended release 24 hr 25 mg PO DAILY Heart Disease/Condition 04/19/23
polyethylene glycol 3350 17 gram oral powder packet (Miralax) 17 g PO DAILY Constipation 04/19/23
mirtazapine 7.5 mg tablet 7.5 mg PO HS Mental Health/Anxiety 04/27/23
pantoprazole 40 mg tablet,delayed release 40 mg PO DAILY Gastrointestinal Issue 07/01/23
acetaminophen 500 mg tablet 1,000 mg PO Q8H mild pain, fever >100.4 07/22/24
bisacodyl 10 mg rectal suppository (Dulcolax (bisacodyl)) 10 mg SC DAILY PRN if no bm in 8hr after MOM 07/22/24
magnesium hydroxide 400 mg/5 mL oral suspension (Milk of Magnesia) 2,400 mg PO DAILYPRN PRN constipation, if no bm x2 days 07/22/24
sodium phosphates 19 gram-7 gram/118 mL enema (Fleet Enema) 118 ml SC PRN PRN if no bm 8hr after suppository 07/22/24
amiodarone 200 mg tablet 100 mg (1/2 x 200 mg) PO DAILY Heart Disease/Condition #0 tabs 07/25/24
ampicillin sodium 2 gram intravenous solution 2 g IV Q6H Infection #0 ea 07/25/24
apixaban 2.5 mg tablet (Eliquis) 2.5 mg PO BID Blood clot prevention/tx #0 tabs 07/25/24
atorvastatin 40 mg tablet 40 mg PO QPM High cholesterol #0 tabs 07/25/24
ceftriaxone 1 gram intravenous solution 2 g IV Q12H Infection #0 ea 07/25/24
clopidogrel 75 mg tablet 75 mg PO DAILY Blood clot prevention/tx #0 tabs 07/25/24
ferrous sulfate 325 mg (65 mg iron) tablet 325 mg PO DAILY anemia #60 tabs 07/25/24
lidocaine 4 % topical patch 1 patch topical DAILY pain #0 ea 07/25/24
oxycodone 5 mg tablet 5 mg PO Q4HPRN PRN severe pain #12 tabs 07/25/24
sennosides 8.6 mg tablet (Aydee-mandy) 17.2 mg (2 x 8.6 mg) PO BID Constipation #0 tabs 07/25/24
sodium chloride 0.9 % (flush) 10 ml IV Q8H Infection #0 mL 07/25/24
tuberculin PPD 5 tub. unit/0.1 mL intradermal injection solution 0.1 ml intradermal Q9D screening #0 mL 07/25/24
zinc oxide 20 % topical paste 1 ea topical Q8H Skin issues #0 grams 07/25/24
Home Medication Changes
Around dose decreased
Aspirin discontinued
Eliquis and Plavix to be continued
Pending Results: No
[2024-07-25 16:31] LABS: Hematocrit 26.9 % (37.0-47.0); Hemoglobin 9.1 g/dL (12.0-16.0)
--- NOTE | 2024-07-25 17:56 | PTCARENOTE ---
Addendum entered by Leonie Reddy RN 07/25/24 18:15:
~1700: D/c orders in. Report called. waiting for pickup. Called son to give update, but no response. Will try again.
~1755: Transport arrived. Patient left with EMS via wheelchair. VSS at this time.
Original Note:
~2524-0283: handoff report received from nightshift RN. patient AOX4, V paced with 1st degree AVB and occassional AV pacing, + murmur present; RA satting mid 90s. Pt states pain is better in bed, however it gets worse if she were to get OOB, this
was informed to provider who was at bedside at the time. External urinary catheter in use for incontinence. Sacrum has foam dressing CDI and B/L heels with foam dressing. Spoke with provider about lab work at this time since no Am labs drawn,
awaiting orders. All needs met at this time, call morales within reach.
~[id number]: Spoke with Dr. Dent, PRN oxy started for sever pain when OOB. Hgb also came back 7.5, stool heme test complete, test mnegative at this time, Dr. Dent aware.
~[id number]: Consent signed for blood, type and screen sent, awaiting result.
~[id number]: Received blood from blood bank, hung with Joslyn. Protocol followed.
~[id number]: Red port on PICC line no longer flushes, IV team paged. IV team worked with PICC, red port now flushes with blood return.
~[id number]: Patient resting in bed, all needs met at this time, call bel;l within reach.
~9924-2534: Blood transfusion finished around 1430. 20 lasix given post transfusion per order. All needs met at this time, call morales within reach.
~[id number]: Bloodwork sent to lab, awaiting results.
~[id number]: Labs resulted which were communicated to hospitalist. Awaiting d/c orders at this time.
[2024-07-27 07:28] LABS: Haptoglobin 179 mg/dL (30-200)
== END 2024-07-25 17:57 | DRG 321 ==
LOC: IVU 08:21
PROVIDERS: Hospitalist; Internal Medicine; ADMITTING PHYSICIAN Hospitalist; CONSULT PHYSICIAN Internal Medicine Infectious Disease; CONSULT PHYSICIAN Student in an Organized Health Care Education/Training Program; EMERGENCY PHYSICIAN Emergency Medicine; FAMILY PHYSICIAN Family Medicine
PROC: 027034Z Dilation of Coronary Artery, One Artery with Drug-eluting Intraluminal Device, Percutaneous Approach (ICD-10-PCS; 2024-07-22)
PROC: B2111ZZ Fluoroscopy of Multiple Coronary Arteries using Low Osmolar Contrast (ICD-10-PCS; 2024-07-22)
PROC: 4A023N6 Measurement of Cardiac Sampling and Pressure, Right Heart, Percutaneous Approach (ICD-10-PCS; 2024-07-22)
PROC: 02C03ZZ Extirpation of Matter from Coronary Artery, One Artery, Percutaneous Approach (ICD-10-PCS; 2024-07-22)
PROC: B240ZZ3 Ultrasonography of Single Coronary Artery, Intravascular (ICD-10-PCS; 2024-07-22)
PROC: 30243N1 Transfusion of Nonautologous Red Blood Cells into Central Vein, Percutaneous Approach (ICD-10-PCS; 2024-07-25)
DX: I21.19 ST elevation (STEMI) myocardial infarction involving other coronary artery of inferior wall (principal); G06.2 Extradural and subdural abscess, unspecified; I46.2 Cardiac arrest due to underlying cardiac condition; I47.20 Ventricular tachycardia, unspecified; M86.9 Osteomyelitis, unspecified; I50.32 Chronic diastolic (congestive) heart failure; I13.0 Hypertensive heart and chronic kidney disease with heart failure and stage 1 through stage 4 chronic kidney disease, or unspecified chronic kidney disease; I21.11 ST elevation (STEMI) myocardial infarction involving right coronary artery; I25.10 Atherosclerotic heart disease of native coronary artery without angina pectoris; F32.A Depression, unspecified; E78.00 Pure hypercholesterolemia, unspecified; Z95.3 Presence of xenogenic heart valve; Z85.3 Personal history of malignant neoplasm of breast; K21.9 Gastro-esophageal reflux disease without esophagitis; K76.1 Chronic passive congestion of liver; K59.00 Constipation, unspecified; F41.9 Anxiety disorder, unspecified; D63.1 Anemia in chronic kidney disease; E11.22 Type 2 diabetes mellitus with diabetic chronic kidney disease; E11.69 Type 2 diabetes mellitus with other specified complication; I48.0 Paroxysmal atrial fibrillation; Z66 Do not resuscitate; Z79.01 Long term (current) use of anticoagulants; Z79.82 Long term (current) use of aspirin; Z79.899 Other long term (current) drug therapy; Z90.13 Acquired absence of bilateral breasts and nipples; Z95.0 Presence of cardiac pacemaker; Z95.5 Presence of coronary angioplasty implant and graft; Z11.52 Encounter for screening for COVID-19; N18.32 Chronic kidney disease, stage 3b
CPT/HCPCS: 88304; 71045; 80048; 80053; 80061; 82607; 82728; 82805; 82962; 83010; 83036; 83540; 83550; 83605; 83615; 83690; 83735; 84450; 84484; 85014; 85018; 85025; 85027; 85347; 85610; 85730; 86850; 86900; 86901; 86920; 87070; 87811; 92978; 93005; 93306; 93456; 97163; 97167; 99152; 99153; 99291; C1725; C1753; C1757; C1760; C1874; C1894; C9606; P9016; Q9967

== ENCOUNTER 2024-07-29 16:23 | Inpatient (IN) | payer OTHER, SELFPAY ==
[2024-07-29] VITALS (17 sets, daily range): BP systolic 103–151; BP diastolic 43–79; BMI 32.6; BMI 27.6
--- NOTE | 2024-07-29 10:42 | EDRN ---
Dr. Muse in room w/ pt.
--- NOTE | 2024-07-29 10:55 | ED.GENMED ---
History of Present Illness
General
Chief Complaint: Back Pain
Source: patient and records
Time Seen by Provider: 07/29/24 10:31
History of Present Illness
History of Present Illness:
This patient is an 88-year-old female presents emergency department with initially reported change in mental status however patient reports she is here because of back pain. She does not have pain at rest, but notes severe pain with any kind of
movement. This pain has been present ever since she was diagnosed recently with epidural abscess osteomyelitis. She denies new numbness, tingling, incontinence, chest pain, shortness of breath, abdominal pain, nausea, vomiting. She states that
she has been participating physical therapy and recently walked 13 steps. However, she wonders if she is doing too much because she continues to have back pain. Last night, she says that she saw someone dressed on black wearing a helmet with 'RN'
on it who came in to open her PICC line. This person left and then she experienced somebody trying to take her eye out. She noted that she had difficulty sleeping overnight. This morning when she tried to get up as per staff recommendations she
noted the same lower back pain which prompted her visit here. The pain is not different in location or intensity compared to what it has been. It is only with movement and is nonradiating. She describes it as being in the 'sacrum' area.
11:06 AM Case discussed with Tata GREEN at [facility] She states that patient was describing hallucinations to her that she experienced last night. She describes a similar history that I obtained from the patient. Tata states that this is 'not
like her' to have these hallucinations. She has chronic back pain particularly on the right side, and did not suggest that her pain was different today. Patient was given a dose of Atarax last night once for anxiety. She was given 5 mg of
oxycodone at 5 AM today as well as 0.5 mg of Xanax for anxiety and 5 mg of Flexeril. The on-call physician ordered Robaxin, 500 mg however this is not available in the pharmacy there until tonight.
Past History
Past History
ED Past Medical History: Other (Infective endocarditis of the mitral valve, hypertension, reflux, A-fib, heart failure, ACS, L2-4 abscess osteomyelitis)
ED Past Surgical History: Cardiac
Social History
Tobacco: Non-smoker
Alcohol: None
Drug: None
Personal:
Phy Exam
Physical Exam
Physical Exam:
GENERAL: Alert , in no apparent distress
EYE: pupils equal and reactive, no photophobia
NECK: Supple, no significant adenopathy.
ENT: o/p clr, mmm.
CARDIAC: Regular rate and rhythm, systolic murmur noted.
LUNGS: Clear breath sounds bilaterally, no acute respiratory distress, no wheezes/rales/rhonchi
ABDOMEN: Soft, without focal tenderness, no r/g
NEUROLOGICAL: Alert and oriented, weakness bilat le (baseline as per pt), neg SLR, sens intact to light touch
SKIN: Warm and dry, skin intact.
MUSCULOSKELETAL: No edema, well perfused.
PSYCH: Normal and appropriate interaction.
BACK: no ttp lower sacral area (mild), no ttp noted throughout otherwise
Course
Orders/Labs/Results
Orders:
Orders
07/29/24 11:04
Cardiac Monitoring- Treatment ONCE
Pulse Ox/cont/shift [RESP] Urgent
Quantity: 1
07/29/24 11:05
Electrocardiogram (*1) Urgent
Reason for Study: Other
Other Reason for Exam: sepsis
EKG- Treatment ONCE
07/29/24 11:06
CT Head W/o Iv Contrast Urgent
Comment:
Reason For Exam: mental status change
07/29/24 11:54
CRP [C-Reactive Protein] Urgent
Complete Blood Count/With Diff Urgent
Comprehensive Metabolic Panel Urgent
ESR [Erythrocyte Sed Rate] Urgent
Troponin I Urgent
Blood Culture Q30M
ALSHAUN Source: Blood/Venous
Specimen Description:
Influenza A+B Rapid Molecular Urgent
LASHAUN Source: Nasal Swab
Specimen Description:
07/29/24 11:55
COVID-19 Antigen Urgent
Source: Nasal Swab
Lactic Acid Urgent
07/29/24 12:15
Urinalysis Reflex To Culture Urgent
Date Specimen was Collected: 07/29/24
Time Specimen was Collected: 12:14
Urine Microscopic Reflex Cult Urgent
Blood Culture Q30M
LASHAUN Source: Blood/Venous
Specimen Description:
07/29/24 12:24
CR Chest Single View Urgent
Comment:
Reason For Exam: PICC line placement R Ant chest wall
07/29/24 15:41
Admit/Transfer Patient As Directed
Co-Sign Provider:
Level of Care: Inpatient admission
Assign to:: IMU- Intermediate Care
Physician / Group: shasha egrmain
Diagnosis: acute cva
Reason for Hospitalization: acute cva
Expected length of stay greater than two midnights?: Yes
ELOS- Estimated Length of Stay in days: 3
I certify the patient meets the requirements for IP care: Yes
07/29/24 15:45
PRN Pain Medication Management As Directed
May give lesser potent ordered pain med per pt: Yes
preference::
Protocol:: Medication orders for pain may be administered in a
manner that supports deferring to patient preference
when the pt is:
- Requesting an ordered lesser potent pain medication.
Least to most potent pain medications are defined
as: acetaminophen < NSAID < tramadol < opioids
(morphine, oxycodone, hydromorphone).
- Requesting a lesser dose of the same medication IF
ORDERED.
- Requesting a less intrusive route of administration
if both routes are prescribed by the provider (PO <
IV).
07/29/24 15:54
Code Status As Directed
Resuscitation Status: Do not resuscitate
Reached after discussion with pt or family/Healthcare POA: Yes
07/29/24 15:56
DNR Bracelet Application ONCE
07/29/24 21:47
Bisacodyl [Dulcolax] 10 mg RECTAL DAILYPRN PRN
Oxycodone [Roxicodone] 5 mg PO Q4HPRN PRN
Phosphate Enema [Fleet Phosphate Enema-Adult] 118 ml RECTAL DAILYPRN PRN
Sennosides [Senokot] 17.2 mg PO BID
ampicillin sodium 2 grams IV Q8H
ceftriaxone 2 grams IV Q12H
07/29/24 21:47
CARDIOLOGY CONSULT Routine
Consulting Provider: Emmanuel Britt
Was physician already notified: Yes
Case Management Consult ONCE
Case Management Consult: Discharge Planning
Comment: stroke/tia
DIETARY IP CONSULT Routine
Reason for Consult: stroke/TIA
INFECTIOUS DISEASE CONSULT Routine
Consulting Provider: Milli Jack
Was physician already notified: Yes
NEUROLOGY CONSULT Routine
Consulting Provider: Sariah Costa
Was physician already notified: Yes
Copper Plate Printer Urgent
EKG with chest pain [ECG as needed] As Directed
ECG as needed for:: Chest Pain
Other reason
Other reason for ECG as needed:: troponin elevation
Neurological Checks As Directed
Frequency: q4h
Additional Instructions:: q4h x 24h upon admission to the floor, then qshift & with any change in condition
and mental status
Swallow Screening CVA/TIA ONLY As Directed
Comment: NPO until swallowing screening completed
If patient FAILS swallow screening:: NPO, Speech Therapy consult, Aspiration Precautions
If patient PASSES swallow screening, diet:: Cholesterol Lowering
Sodium, 2 Gram
Above diet order entered?: Yes- passed screening
Vital Signs As Directed
Frequency: Per unit guidelines
O2 Therapy [RESP] Routine
Nasal Cannula Liter Flow: 2 LPM
Titrate/Wean O2 to maintain O2 sat greater than (%): 94
Special Instructions: Titrate oxygen via nasal cannula starting at 2 liters/minute to keep SpO2 greater than
94%. Notify physician if greater than or equal to 6 liters/minute of O2
Ot Eval And Treat Routine
Pt Eval And Treat Routine
Activity Level: As Tolerated
Speech Therapy Eval & Treat Routine
07/29/24 22:00
Atorvastatin [Lipitor] 40 mg PO HS
Mirtazapine [Remeron] 7.5 mg PO HS
07/29/24 23:06
Troponin I Routine
07/30/24 00:00
Acetaminophen [Tylenol] 1,000 mg PO Q8
Methocarbamol 500 mg PO Q8
07/30/24 03:36
Basic Metabolic Panel IN AM
Complete Blood Count/No Diff IN AM
Troponin I Q6H
07/30/24 08:00
Alprazolam [Xanax] 0.5 mg PO DAILY
Amiodarone [Pacerone] 100 mg PO DAILY
Clopidogrel Bisulfate [Plavix] 75 mg PO DAILY
Ferrous Sulfate [Feosol] 325 mg PO DAILY
Lidocaine [Lidocaine 4% Patch] 1 patch TOPICAL DAILY
Apply Lidocaine patch(s) to:: back
Metoprolol Xl [Toprol Xl] 25 mg PO DAILY
Pantoprazole [Protonix] 40 mg PO DAILY
Polyethylene Glycol Powder [Miralax] 17 grams PO DAILY
07/30/24 09:51
Troponin I Q6H
07/31/24 04:50
Basic Metabolic Panel IN AM
Complete Blood Count/No Diff IN AM
07/31/24 08:00
Furosemide [Lasix] 20 mg PO MoWeFr@0800
08/01/24 06:00
Basic Metabolic Panel IN AM
Complete Blood Count/No Diff IN AM
08/02/24 06:00
Basic Metabolic Panel IN AM
Complete Blood Count/No Diff IN AM
08/03/24 06:00
Basic Metabolic Panel IN AM
Complete Blood Count/No Diff IN AM
08/04/24 06:00
Basic Metabolic Panel IN AM
Complete Blood Count/No Diff IN AM
Abnormal Lab Results
07/29/24 07/29/24
11:54 12:15
RBC 3.12 L 10^6/uL
(4.20-5.40)
Hgb 9.6 L g/dL
(12.0-16.0)
Hct 29.4 L %
(37.0-47.0)
MCHC 32.7 L g/dL
(33.0-37.0)
RDW 15.4 H %
(11.5-14.5)
Abs Immat Gran (auto) 0.1 H 10^3/uL
(0-0.05)
Absolute Neuts (auto) 7.1 H 10^3/uL
(1.4-6.5)
Absolute Lymphs (auto) 0.8 L 10^3/uL
(1.2-3.4)
Immature Gran % 0.8 H %
(0-0.5)
Neutrophils % 81.7 H %
(42.2-75.2)
Lymphocytes % 8.7 L %
(20.5-51.1)
ESR 82 H mm/hour
(0-20)
BUN 22 H mg/dl
(7-17)
Creatinine 1.3 H mg/dL
(0.6-1.0)
Glucose 108 H mg/dl
(70-99)
Alkaline Phosphatase 144 H U/L
(38-126)
Troponin I 2.420 H* ng/ml
C-Reactive Protein 41.60 H mg/L
(0.0-10.00)
Total Protein 5.7 L g/dl
(6.3-8.2)
Albumin 2.8 L g/dl
(3.5-5.0)
Ur Occult Blood Reflex 2+ A
(Negative)
Urine Bacteria (Reflex) Few A
(Negative)
Urine Albumin (Reflex) 2+ A
(Neg - Trace)
07/29/24 11:54
07/29/24 11:54
Vital Signs
Initial and Last Documented VS:
Initial Vital Signs
Temp Pulse Resp BP Pulse Ox
97.6 F 70 18 133/63 99
07/29/24 10:35 07/29/24 10:35 07/29/24 10:35 07/29/24 10:35 07/29/24 10:35
Last Documented Vital Signs
Temp Pulse Resp BP Pulse Ox
97.6 F 70 14 128/61 98
07/31/24 07:29 07/31/24 11:06 07/31/24 11:06 07/31/24 11:06 07/31/24 11:06
*Critical Care Note
Total Time (30-74mins, 75-104mins- exclusive of procedures): Not Applicable
Update Note
Update Note:
Patient presents to the Emergency Department with ___back pain and reported change in mental status
Number and Complexity of Problems Addressed at the Encounter
� Chronic conditions affecting care:
� Acute Exacerbation and/or Progression of Chronic Illness:
� Differential Diagnosis includes: But not limited to expected back pain given diagnosis of abscess/osteomyelitis, increasing/progression of infection, muscular strain, medication reaction, etc.
Amount and/or Complexity of Data to be Reviewed and Analyzed
� I performed an independent evaluation of and my interpretation is:
EKG: Read by me, paced rhythm, no acute ischemia
CT:1.2 cm focal region of asymmetric low attenuation in the peripheral left cerebellar hemisphere which is most suggestive of cytotoxic edema or encephalomalacia from an ischemic infarct (more likely acute to subacute than
chronic).
2. 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
3. Mild white matter leukoaraiosis in the frontal lobes.
4. Mild diffuse cerebral and cerebellar volume loss.
Xrays:cxr Right anterior chest wall PICC line in place with the catheter tip projecting over the SVC.
2. Mild interstitial and alveolar cardiogenic pulmonary edema.
3. Mild cardiomegaly.
4. Previous TAVR.
5. Left-sided cardiac pacemaker in place.
6. Previous bilateral mastectomies.
7. Diffuse bone demineralization.
Laboratory Studies: Troponin noted to be elevated but markedly decreased from prior, baseline anemia elevated CRP and sed rate which are nonspecific
Other:
� Review of other/old records reveals: Patient admitted here for a STEMI
� Clinical information was obtained by an independent historian: See above H&P regarding discussion with Tata GREEN
� Prescriptions/Medications Considered but not given:
� Further testing considered but not performed:
Risk of Complications and/or Morbidity or Mortality of Patient Management
� Social determinants of health affecting care:
� Discussion with other providers (PCP, Hospitalists, Consultants, etc):
� Escalation of care including admission/observation vs risk of discharge considered: CT findings discussed with neurosurgery who agrees that meningioma is an incidental finding. Patient will be admitted to the hospital given
mental status change and new finding on her CT which could be consistent with an ischemic infarct. Given her history of infective endocarditis, this could be consistent with septic emboli as well. She will need an MRI, neurology consult, etc.
Case discussed with hospitalist for admission peer
ED Attending Note
-
Portions of this chart may have been created with voice recognition software.� Occasional wrong word or��sound alike� substitutions may have occurred due to the inherent limitations of voice recognition software.
Discharge Plan
Departure
Patient Disposition: Admit
Date of Disposition: 07/29/24
Time of Disposition: 14:35
Admit to: Telemetry
Presentation/result/management discussed w/ accepting MD/DO: Hospitalist
Discharge Problem:
Acute CVA (cerebrovascular accident)
Interventions
Interventions:
*Risk Screen - Suicide Last Done: 07/29/24 10:35
*General Assessment Last Done: 07/29/24 10:35
*Neglect/Abuse Screening Last Done: 07/29/24 10:35
*ED- Fall Risk Assessment Last Done: 07/29/24 10:35
*ED COVID-19 Vaccine History Last Done: 07/29/24 10:35
*Nursing Disposition Last Done: 07/29/24 21:54
ED- Cardiac Assessment Last Done: 07/29/24 21:54
ED-Musculoskeletal Assessment Last Done: 07/29/24 10:54
ED- Neurological Assessment Last Done: 07/29/24 10:55
ED-Psychological Assessment Last Done: 07/29/24 21:54
ED- Pulmonary Assessment Last Done: 07/29/24 21:54
ED Swallowing Screen Last Done: 07/29/24 15:30
Discharge Date and Time
Discharge Date/Time: 07/29/24 21:55
--- NOTE | 2024-07-29 11:59 | EDRN ---
Spoke to CARD CLOTHIERPETER Oliver about PICC line in R ACW placed by Aldo per pt and son.
[2024-07-29 12:07] LABS: % Basophils 0.7 % (0-2); % Eosinophils 1.4 % (0-6); % Immature Granulocytes 0.8 % (0-0.5); % Lymphocytes 8.7 % (20.5-51.1); % Monocytes 6.7 % (1.7-9.3); % Neutrophils 81.7 % (42.2-75.2); Absolute Basophils 0.1 10^3/uL (0-0.2); Absolute Eosinophils 0.1 10^3/uL (0-0.7); Absolute Immature Granulocytes 0.1 10^3/uL (0-0.05); Absolute Lymphocytes 0.8 10^3/uL (1.2-3.4); Absolute Monocytes 0.6 10^3/uL (0.1-0.6); Absolute Neutrophils 7.1 10^3/uL (1.4-6.5); Hematocrit 29.4 % (37.0-47.0); Hemoglobin 9.6 g/dL (12.0-16.0); Mean Corp Hgb Conc. 32.7 g/dL (33.0-37.0); Mean Corpuscular Hgb 30.8 pg (27.0-31.0); Mean Corpuscular Volume 94.2 fL (81.0-99.0); Mean Platelet Volume 9.5 fL (7.4-10.4); Nucleated Red Blood Cells % 0 %; Platelet Count 326 10^3/uL (130-400); Red Blood Cell Count 3.12 10^6/uL (4.20-5.40); Red Cell Dist. Width 15.4 % (11.5-14.5); White Blood Cell Count 8.6 10^3/uL (4.8-10.8)
[2024-07-29 12:18] LABS: Lactic Acid 1.2 mmol/L (0.7-2.0)
[2024-07-29 12:22] LABS: COVID-19 Antigen Negative (Negative)
[2024-07-29 12:26] LABS: ALT (SGPT) 14 U/L (0-35); AST (SGOT) 26 U/L (14-36); Albumin 2.8 g/dl (3.5-5.0); Alkaline Phosphatase 144 U/L (38-126); Blood Urea Nitrogen 22 mg/dl (7-17); Calcium 8.9 mg/dl (8.4-10.2); Carbon Dioxide 27 mmol/L (22-30); Chloride 103 mmol/L (98-107); Erythrocyte Sed Rate 82 mm/hour (0-20); Estimated Creatinine Clearance 35 ml/min; Glucose 108 mg/dl (70-99); Potassium 4.3 mmol/L (3.5-5.1); Sodium 138 mmol/L (135-145); Total Bilirubin 0.6 mg/dl (0.2-1.3); Total Protein 5.7 g/dl (6.3-8.2); eGFR 40.05
[2024-07-29 12:29] LABS: Urine Albumin 2+ (Neg - Trace); Urine Bilirubin Negative (Negative); Urine Character Clear (Clear); Urine Color Yellow; Urine Glucose Negative (Negative); Urine Ketone Negative (Negative); Urine Leukocyte Negative (Negative); Urine Nitrite Negative (Negative); Urine Occult Blood 2+ (Negative); Urine Specific Gravity 1.015 (<1.030); Urine Urobilinogen Negative (Neg - 1+)
[2024-07-29 12:49] LABS: Urine Bacteria Few (Negative); Urine Red Blood Cell 0-2 /HPF (0-2); Urine Squamous Cell 0-2 /LPF (Few)
--- NOTE | 2024-07-29 13:25 | EDRN ---
Pt calling out in pain and attempting to find a comfortable position. Pt was turned w/ removal of excess sheets, diaper was saturated and changed at this time w/ white inc pad placed under pt and green absorbent pad. Pt was then repositioned for
comfort.
--- NOTE | 2024-07-29 14:32 | EDRN ---
Dr. Muse was in to update pt that she will be admitted at this time.
--- NOTE | 2024-07-29 15:53 | EDRN ---
Pt became upset when this RN was in w/ another pt. Pt said she was very uncomfortable and bored as she could not get TV to work. Dr. Hightower was in to see pt from hospitalist group. Pt stated she wants to go home. Son informed me that pt no longer
wanted to be at [facility] so he let her room go and said upon leaving earlier today that he was picking up all her belongings. He informed this RN he is taking care of his father who is full care. he said pt is not at baseline and very confused.
A hospital bed was ordered though supervisor in charge Ann at request of Dr. Muse. Josie and this RN speaking about pt and her desire to leave immediately and get OOB. Pt has very severe back pain so it was a concern. Also where is pt to go?. Dr. Hightower had left
and was to contact pt's son about pt. Pt is highly recommended for admission. Pt calling out she wants to go home now. She wants to get OOB. Pt was told we could not get her out yet. Pt called the police. Police arrives and spoke to pt. After police
left pt OOB to recliner and TV adjusted for pt.
--- NOTE | 2024-07-29 16:06 | CON.ID ---
Consultation
-
Date/Time Consultation Requested: July 29, 2024 1530
Date/Time Consultation Performed: July 1600
Requesting Provider: Dr. Tulio Hightower
Performing Provider: Dr. Milli Jack
Reason for Consultation: Recent endocarditis now with acute infarct.
Chief Complaint / Past History
Chief Complaint
Change in mental status
History of Present Illness
88 year old female [facility] from [facility] with hallucination.
History obtained from review of medical records and from pt. She has history of TVAR, PPM recently was admitted to [facility] with the following:
- Enterococcus faecalis bacteremia (07/04/24)
-L2-L3-L4 vertebral osteomyelitis/epidural abscess. MRI of the lumbar spine rim-enhancing epidural collection compatible with abscess with degenerative changes with severe spinal canal narrowing L2, L3, L4 with marrow edema and enhancement.
Throughout L3 and superior endplate L4. Findings concerning the combination of recent L3 compression fracture with moderate height loss as well as osteomyelitis in the opposing L3-L4 endplates. 07/10/24 s/p IR L3 bone aspiration - cx negative
- [place] MV infectious endocarditis.
07/08/24 TTE Mobile mass attached to atrial surface of anterior mitral leaflet consistent with vegetation. No MS. Moderate MR. Normal tricuspid valve PA pressure 48 mmHg. Aortic valve not well-visualized. TAVR is well-seated. No aortic stenosis.
07/11/24 GIANLUCA large and mobile vegetation attached to the atrial aspect of the anterior leaflet of the mitral valve. Mild to moderate MR. No abscess. Normal LV size and thickness. EF 55 to 60%. Pacemaker lead is present in the right ventricle no
apparent vegetation. Basically in the right atrium no vegetation. Bioprosthetic valve present in the aortic position normal. Well-seated. No vegetation. No vegetation in the tricuspid valve. Mild to moderate TR.
- 07/12/24 RIJ Picc line placed for 6-8 weeks of Ampicillin 2g IV q6h and ceftriaxone 2g IV q12.
- 07/14/24 DC'd to [facility].
She was then recently admitted to [facility] July [address] elevation ID and the patient was subsequently taken to the catheterization lab, where she was found to have a right coronary artery thrombus. Stenting was
performed. Of note, per cardiology the RCA thrombus looked more like a vegetation then a typical thrombus. TTE here did not not show gross vegetation, there was moderate mitral regurgitation. Patient was discharged back to [facility] on July 26.
She presented back to [facility] 07/29 due to confusion/hallucination. CT head 1.2 cm focal region of asymmetric low attenuation in the peripheral left cerebellar hemisphere which is most suggestive of cytotoxic edema or encephalomalacia
from an ischemic infarct (more likely acute to subacute than chronic). Today patient denies ZHOU or visual changes. She is aware she is in [facility]. No fevers or chills. She c/o tailbone pain which is chronic. No N/V/D.
Past History
Additional Past Medical History:
HTN
HLD
DM
E. faecalis MV endocarditis, L2-L4 osteo/epidural abscess currently on amp/ceftriaxone
CAD s/p PTCA with stenting (07/22/2024)
A-fib (on Eliquis)
PPM placement
Aortic stenosis s/p TAVR (06/2023)
GERD
CKD 3
Depression
Hx breast cancer s/p Bilateral mastectomy
Allergy History:
No Known Allergies Allergy (Verified 07/22/24 18:33)
Medications Reviewed: Yes
Current Antibiotics:
Ampicillin 2 g IV every 6 hours
Ceftriaxone 2 g IV every 12 hours
Social History
Tobacco: Non-Smoker
Alcohol: None
Drug: None
Personal:
Family History
Family History: Not Pertinent
Review of Systems
Review of Systems
General: Negative Fever, Chills or Change in Appetite
HEENT: Negative Sinus Problems, Headache or Pharyngitis
Cardiovascular: Negative Chest Pain
Respiratory: Negative Dyspnea or Cough
Gasteroenterology: Negative Nausea or Vomiting
Genital / Urological: Negative Dysuria or Flank Pain
Endocrine: Negative Weakness
Neurological: Negative Dizziness
All systems: All other systems were reviewed and were negative
Vital Signs
Temp Pulse Resp BP Pulse Ox
97.6 F 70 18 140/75 99
07/29/24 10:35 07/29/24 16:00 07/29/24 16:00 07/29/24 16:00 07/29/24 16:00
Physical Exam
Physical Exam
Constitutional: Comfortable and Non-toxic
Head: Other (No frontal or maxillary sinus tenderness)
Eyes: No Conjunctival Hemorrhage and Sclera Anicteric
Cardiovascular: Regular Rate, S1/S2 and Murmur (3/6 left axilla)
Pulmonary: Clear
Gastrointestinal: Soft, Non Tender, Non Distended and Normal Bowel Sounds
Genito-Urinary: Negative CVA Tenderness
Extremities: Negative Edema, Splinter Hemorrhage or Janeway Lesions
Musculoskeletal: Negative Spinal Tenderness
Skin: Rash (ecchymosis BUE)
Neurological: Awake and Alert; Negative Meningeal Signs
Lines: PICC (RIJ no erythema)
Lab / Diagnostic Study Results
07/29/24 11:54
07/29/24 11:54
Abs Immat Gran (auto) 0.1 10^3/uL (0-0.05) H 07/29/24 11:54
Absolute Neuts (auto) 7.1 10^3/uL (1.4-6.5) H 07/29/24 11:54
Absolute Lymphs (auto) 0.8 10^3/uL (1.2-3.4) L 07/29/24 11:54
Absolute Monos (auto) 0.6 10^3/uL (0.1-0.6) 07/29/24 11:54
Absolute Basos (auto) 0.1 10^3/uL (0-0.2) 07/29/24 11:54
Immature Gran % 0.8 % (0-0.5) H 07/29/24 11:54
Neutrophils % 81.7 % (42.2-75.2) H 07/29/24 11:54
Lymphocytes % 8.7 % (20.5-51.1) L 07/29/24 11:54
Monocytes % 6.7 % (1.7-9.3) 07/29/24 11:54
Eosinophils % 1.4 % (0-6) 07/29/24 11:54
Basophils % 0.7 % (0-2) 07/29/24 11:54
ESR 82 mm/hour (0-20) H 07/29/24 11:54
Lactic Acid 1.2 mmol/L (0.7-2.0) 07/29/24 11:55
C-Reactive Protein 41.60 mg/L (0.0-10.00) H 07/29/24 11:54
Ur Squamous Epith Cells 0-2 /LPF (Few) 07/29/24 12:15
Microbiology Results
Micro:
07/29/24 11:54 Influenza Types A & B (NILS) - Final
Nasal Swab Negative for Influenza A & B, NAAT
Negative results must be combined with clinical observations
and patient history.
Nucleic Acid Amplification test (NAAT)performed on the
[employer] platform.
07/29/24 12:15 Blood Culture - Pending
Blood/Venous
07/29/24 11:54 Blood Culture - Pending
Blood/Venous
07/29/[address]: 1.2 cm focal region of asymmetric low attenuation in the peripheral left cerebellar hemisphere which is most suggestive of cytotoxic edema or encephalomalacia from an ischemic infarct (more likely acute to subacute than chronic).
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
Assessment / Plan
# Acute change in mental status
# Probable acute -subacute ischemic infarct left cerebellum by CT
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
# Recent STEMI s/p RCA stent (07/22/24) . Per cardiology RCA thrombus may have been vegetaion.
# hx TAVR, PPM
- Recommend MRI brain.
- Embolic CVA usually involves multiple infarcts, not solitary.
- No need for LP from ID standpoint.
- Repeat TTE. Consider repeat GIANLUCA
- Continue Ampicillin 2g IV q6 and ceftriaxone 2g IV q12h. 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
--- NOTE | 2024-07-29 16:07 | EDRN ---
Pt is calling out for pillows, water and pain medicine. Pt was given water and a pillow. WIll contact Hospitalist about pain meds.
--- NOTE | 2024-07-29 16:12 | HPS.HSE ---
Family Physician
-
Family Physician: Eitan Reed MD
Chief Complaint
-
hallucinations
History of Present Illness
88 female history of hypertension AAS s/p TAVR recent hospitalization for discitis endocarditis and within the last 1 week recently admitted for STEMI with a stent to the RCA, A-fib on Eliquis/amiodarone complicated by CHB s/p PPM and HFpEF who
presents from nursing facility for acute onset hallucinations. However she is oriented x 3. States that she wants to go home at this time. Limited H&P as she does not want to participate in this encounter at this time.
Per ER documentation which I have copied and pasted as they had spoke to RN at [facility] in order to obtain collateral information:
11:06 AM Case discussed with Tata RN at [facility]. She states that patient was describing hallucinations to her that she experienced last night. She describes a similar history that I obtained from the patient. Tata states that this is 'not
like her' to have these hallucinations. She has chronic back pain particularly on the right side, and did not suggest that her pain was different today. Patient was given a dose of Atarax last night once for anxiety. She was given 5 mg of
oxycodone at 5 AM today as well as 0.5 mg of Xanax for anxiety and 5 mg of Flexeril. The on-call physician ordered Robaxin, 500 mg however this is not available in the pharmacy there until tonight.
Hemodynamically stable and afebrile. CBC unremarkable apart from hemoglobin of 9.6 which appears stable from previous admission. BMP unremarkable apart from chronic kidney disease stage IIIb. Troponin elevated 2.4 which is lower than previous.
CRP 41. ESR 82. EKG V paced rhythm. CXR mild alveolar cardiogenic pulmonary edema and cardiomegaly, pacemaker dual-chamber left-sided, aortic valve replaced, aortic calcification, central line terminating in the RA. CT brain demonstrating a
concern for acute to subacute ischemic infarct of the peripheral left cerebellar hemisphere, 1.3 cm meningioma posterior to the right cerebellar hemisphere causing mass affect. Some white matter changes.
Medical History
Past Medical History
Past Medical History: Reports CAD and Cancer
Past Surgical History: Reports Cardiac
Social History
Unable to obtain full social history at this time due to: Other
Family History
Family History: Other
Allergies / Home Medications
Allergies reflects when Allergies were last updated in [employer].
Home Medications with original date entered in [employer]
Allergy/Medication List:
Allergies
Allergy/AdvReac Type Severity Reaction Status Date / Time
No Known Allergies Allergy Verified 07/22/24 18:33
Home Medications
furosemide 20 mg tablet 20 mg PO MOWEFR Fluid Retention/Swelling 04/19/23
metoprolol succinate 25 mg tablet,extended release 24 hr 25 mg PO DAILY Heart Disease/Condition 04/19/23
polyethylene glycol 3350 17 gram oral powder packet (Miralax) 17 g PO DAILY Constipation 04/19/23
mirtazapine 7.5 mg tablet 7.5 mg PO HS Mental Health/Anxiety 04/27/23
pantoprazole 40 mg tablet,delayed release 40 mg PO DAILY Gastrointestinal Issue 07/01/23
acetaminophen 500 mg tablet 1,000 mg PO Q8H mild pain, fever >100.4 07/22/24
bisacodyl 10 mg rectal suppository (Dulcolax (bisacodyl)) 10 mg SD DAILYPRN PRN if no bm in 8hr after MOM 07/22/24
magnesium hydroxide 400 mg/5 mL oral suspension (Milk of Magnesia) 2,400 mg PO DAILYPRN PRN if no bm x2 days 07/22/24
sodium phosphates 19 gram-7 gram/118 mL enema (Fleet Enema) 118 ml SD DAILYPRN PRN if no bm 8hr after suppository 07/22/24
amiodarone 200 mg tablet 100 mg (1/2 x 200 mg) PO DAILY Heart Disease/Condition #0 tabs 07/25/24
apixaban 2.5 mg tablet (Eliquis) 2.5 mg PO BID Blood clot prevention/tx #0 tabs 07/25/24
ceftriaxone 1 gram intravenous solution 2 g IV Q12H Infection #0 ea 07/25/24
clopidogrel 75 mg tablet 75 mg PO DAILY Blood clot prevention/tx #0 tabs 07/25/24
ferrous sulfate 325 mg (65 mg iron) tablet 325 mg PO DAILY anemia #60 tabs 07/25/24
oxycodone 5 mg tablet 5 mg PO Q4HPRN PRN severe pain #12 tabs 07/25/24
sennosides 8.6 mg tablet (Aydee-mandy) 17.2 mg (2 x 8.6 mg) PO BID Constipation #0 tabs 07/25/24
alprazolam 0.5 mg tablet (Xanax) 0.5 mg PO DAILY 07/29/24
ampicillin sodium 2 gram intravenous solution 2 g IV Q8H Infection 07/29/24
atorvastatin 40 mg tablet 40 mg PO HS High cholesterol 07/29/24
cyclobenzaprine 5 mg tablet 5 mg PO DAILY 07/29/24
cyclobenzaprine 5 mg tablet 5 mg PO DAILYPRN PRN give if first tablet doesnot work with an hour 07/29/24
lidocaine 4 % topical patch 1 patch topical DAILY back pain 07/29/24
methocarbamol 500 mg tablet 500 mg PO Q8H 07/29/24
sodium chloride 0.9 % (flush) 10 ml IV Q8H before and after iv meds 07/29/24
zinc oxide 20 % topical ointment 1 applic topical Q2HPRN PRN incontinent 07/29/24
zinc oxide 20 % topical ointment 1 applic topical TID 07/29/24
Review of Systems
-
Unable to obtain full review of systems at this time due to: Other (Did not participate in examination. Stated she wanted to go home with her and called 911)
Physical Exam
Vital Signs
Vital Signs
Temp Pulse Resp BP Pulse Ox
97.6 F 70 18 140/75 99
07/29/24 10:35 07/29/24 16:00 07/29/24 16:00 07/29/24 16:00 07/29/24 16:00
Physical Exam
General: Well Developed
Laboratory Results
-
07/29/24 11:54
07/29/24 11:54
Laboratory Results
Lactic Acid 1.2 mmol/L (0.7-2.0) 07/29/24 11:55
Total Bilirubin 0.6 mg/dl (0.2-1.3) 07/29/24 11:54
AST 26 U/L (14-36) 07/29/24 11:54
ALT 14 U/L (0-35) 07/29/24 11:54
Alkaline Phosphatase 144 U/L (38-126) H 07/29/24 11:54
Troponin I 2.420 ng/ml H* 07/29/24 11:54
Impression/Plan
-
Scleral Anicteric
No JVD
CTABL
RRR, S1/S2 with a systolic murmur at the apex
Soft, NT, ND, BS+
Warm, Dry
Agitated and wanted to go home
Toxic metabolic encephalopathy versus acute CVA/embolic CVA. Low clinical suspicion for meningitis at this time as I cannot elicit meningeal signs
- Obtain MRI if PPM compatible if not likely will need to repeat CT head and neck along with brain within 24 hours or what ever neurology recommends in terms of next imaging studies needed
- Obtain 2D echocardiogram to assess for PFO and vegetation. If positive for vegetation then obtain GIANLUCA
- Repeat blood cultures if positive then would obtain GIANLUCA
- Check b12/folate, TSH
- Neuro and ID consult
STEMI�recent admission 1 week ago
- Will need to continue aspirin and Plavix along with statin and beta-sue
- Benefits outweigh risk at this time
- Appreciate neurology and cardiology's input on DAPT in the setting of acute/subacute CVA with recent stent placement
Endocarditis/discitis/epidural abscess
-- Most recent 2D echocardiogram that we have there was no vegetation noted on the mitral valve
- Continue long-term antibiotics with ampicillin Rocephin
- Appreciate infectious disease input
- Repeat blood cultures, if + then may need to obtain GIANLUCA
Troponin elevation
- Likely NSTEMI in the setting of recent STEMI and could be related to downtrending event or coronary engagement during [facility]
- Will trend troponin for now
- If troponin elevating we will repeat EKG as this has been ordered as EKG as needed for chest pain and elevation in troponin
- Monitor on tele
- No chest pain (but also not contributory)
Atrial fibrillation and known history of complete heart block s/p PPM
- Continue amiodarone and beta-sue
- Will hold Eliquis and allow for monotherapy with aspirin for now
- Appreciate cardiology's and neurology's input into plan Eliquis should be resumed
Chronic HFpEF although chest x-ray does show mild edema along with cardiomegaly
- Therefore we will treat for acute on chronic HFpEF
- IV Lasix 20 mg now, reassess volume status tomorrow
CKD stage IIIb
Baseline creatinine around 1.3-1.4
- Avoid nephrotoxins
- Avoid hypotension
- Monitor urinary output
DVT prophylaxis
SCDs
DNR/DNI confirmed by son
Son Jarad currently making medical decision
I personally discussed case with infectious diseases, neurology, interventional cardiology, and cardiology noninvasive.
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
--- NOTE | 2024-07-29 16:38 | CON.CAR ---
Consultation
Consultation Request
Date/Time Consultation Requested: July 29 2024 3:30 PM
Date/Time Consultation Performed: July 29, 2024 4:40 PM
Requesting Provider: Hospitalist
Performing Provider: Emmanuel Britt
Reason for Consultation: Elevated troponin
Medical History
-
Chief Complaint: Confusion
History of Present Illness:
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
facility because of acute onset of hallucinations. Overall, she appears AAO x 3, however, she is confused about overnight and telling me that a person all dressed in navy blue was after her eyes and eyelids. The rest of the history was obtained
through chart review.
Apparently, in the morning Ms. Abdi was perseverating on and about what she had thought happened to her last night. She appears to not have these hallucinations and this could be the first time. Additionally, in speaking with her she denies any
cardiovascular symptoms including chest pain, shortness of breath, or palpitations.
In the emergency room a CT of her head showed acute for subacute stroke.
Past Medical History
Past Medical History: Other (PPM, AF, severe s/p TAVR, Endocarditis Discitis / Epidural Abscess Vertebral Compression Fracture Hypertension GERD Aortic Stenosis Paroxysmal Atrial Fibrillation Chronic HFpEF Breast Cancer s/p Mastectomy and XRT)
Past Surgical History: Other (PTCA with RCA Stent (07/22/24) Bilateral Mastectomies TAVR (06/2023) T&A)
Social History
Tobacco: Non-Smoker
Alcohol: None
Drug: None
Personal:
Employment: Retired
Family History
Family History: Unable to Obtain
Allergies / Home Medications
Allergy/AdvReac Type Severity Reaction Status Date / Time
No Known Allergies Allergy Verified 07/22/24 18:33
�Medication �Instructions �Recorded �Confirmed �Type
furosemide 20 mg tablet 20 mg PO MOWEFR Fluid 04/19/23 07/29/24 History
Retention/Swelling
metoprolol succinate 25 mg 25 mg PO DAILY Heart 04/19/23 07/29/24 History
tablet,extended release 24 hr Disease/Condition
polyethylene glycol 3350 17 gram 17 g PO DAILY Constipation 04/19/23 07/29/24 History
oral powder packet (Miralax)
mirtazapine 7.5 mg tablet 7.5 mg PO HS Mental Health/Anxiety 04/27/23 07/29/24 History
pantoprazole 40 mg tablet,delayed 40 mg PO DAILY Gastrointestinal 07/01/23 07/29/24 History
release Issue
acetaminophen 500 mg tablet 1,000 mg PO Q8H mild pain, fever 07/22/24 07/29/24 History
>100.4
bisacodyl 10 mg rectal suppository 10 mg SD DAILYPRN PRN if no bm in 07/22/24 07/29/24 History
(Dulcolax (bisacodyl)) 8hr after MOM
magnesium hydroxide 400 mg/5 mL 2,400 mg PO DAILYPRN PRN if no bm 07/22/24 07/29/24 History
oral suspension (Milk of Magnesia) x2 days
sodium phosphates 19 gram-7 118 ml SD DAILYPRN PRN if no bm 07/22/24 07/29/24 History
gram/118 mL enema (Fleet Enema) 8hr after suppository
amiodarone 200 mg tablet 100 mg (1/2 x 200 mg) PO DAILY 07/25/24 07/29/24 Rx
Heart Disease/Condition #0 tabs
apixaban 2.5 mg tablet (Eliquis) 2.5 mg PO BID Blood clot 07/25/24 07/29/24 Rx
prevention/tx #0 tabs
ceftriaxone 1 gram intravenous 2 g IV Q12H Infection #0 ea 07/25/24 07/29/24 Rx
solution
clopidogrel 75 mg tablet 75 mg PO DAILY Blood clot 07/25/24 07/29/24 Rx
prevention/tx #0 tabs
ferrous sulfate 325 mg (65 mg 325 mg PO DAILY anemia #60 tabs 07/25/24 07/29/24 Rx
iron) tablet
oxycodone 5 mg tablet 5 mg PO Q4HPRN PRN severe pain #12 07/25/24 07/29/24 Rx
tabs
sennosides 8.6 mg tablet (Aydee-mandy) 17.2 mg (2 x 8.6 mg) PO BID 07/25/24 07/29/24 Rx
Constipation #0 tabs
alprazolam 0.5 mg tablet (Xanax) 0.5 mg PO DAILY 07/29/24 07/29/24 History
ampicillin sodium 2 gram 2 g IV Q8H Infection 07/29/24 07/29/24 History
intravenous solution
atorvastatin 40 mg tablet 40 mg PO HS High cholesterol 07/29/24 07/29/24 History
cyclobenzaprine 5 mg tablet 5 mg PO DAILY 07/29/24 07/29/24 History
cyclobenzaprine 5 mg tablet 5 mg PO DAILYPRN PRN give if first 07/29/24 07/29/24 History
tablet doesnot work with an hour
lidocaine 4 % topical patch 1 patch topical DAILY back pain 07/29/24 07/29/24 History
methocarbamol 500 mg tablet 500 mg PO Q8H 07/29/24 07/29/24 History
sodium chloride 0.9 % (flush) 10 ml IV Q8H before and after iv 07/29/24 07/29/24 History
meds
zinc oxide 20 % topical ointment 1 applic topical Q2HPRN PRN 07/29/24 07/29/24 History
incontinent
zinc oxide 20 % topical ointment 1 applic topical TID 07/29/24 07/29/24 History
Review of Systems
-
All other systems: Negative unless noted
Physical Exam
Vital Signs
Temp Pulse Resp BP Pulse Ox
97.6 F 70 18 140/75 99
07/29/24 10:35 07/29/24 16:00 07/29/24 16:00 07/29/24 16:00 07/29/24 16:00
Lab Results
07/29/24 11:54
07/29/24 11:54
Troponin I 2.420 ng/ml H* 07/29/24 11:54
Physical Exam
General: Well Developed and No Apparent Distress
HEENT: Normocephalic
Respiratory: Crackles and Non Labored Respirations
Cardiac: Regular Rhythm
GI: Soft
Musculoskeletal: Edema (mild )
Skin: Warm and Dry
Neuro: AO x 3
Psych: Confused
Impression / Plan
-
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
nursing facility because of acute onset of hallucinations. Given her recent STEMI I discussed with Dr. Rose interventional cardiology and in the absence of chest pain her elevated troponin is likely a type II NSTEMI versus nonischemic myocardial
injury given endocarditis and CVA. Additionally, she had a report in a prior echocardiogram about mitral valve anterior leaflet vegetation, but we did not see this on her echocardiogram here. Dr. Rose felt that she could have had a septic emboli
to her RCA and now given new CT findings possible septic emboli to her head.
Acute/subacute CVA
- Per Neuro DAPT for now holding Eliquis
- consideration of possible septic emboli given hx of MV vegetation that was not seen on echo done July 24?
CAD status post RCA STEMI July 22
- Continue DAPT holding Eliquis for now given concern for possible hemorrhagic conversion
- Continue statin
- trend troponin to peak likely type 2 NSTEMI vs nonischemic myocardial injury
MV endocarditis
- reported history of large anterior MV veg, not seen on recent echo --> possible septic emboli?
- update echo
- cont abx
- obtain blood cx's
AF
- holding ELiquis given concern for septic emboli HRs controlled
- cont amio
HFpEF
- agree with IV diuresis
CHB s/p PPM
- paced rhythm
CKD
- trend
anemia
- stable
Echo July 24 2024: CONCLUSIONS
Normal biventricular size and global systolic function. Left ventricular
ejection fraction is 55-60% by volumetric assessment.
Basal to mid inferior and inferolateral hypokinesis.
Moderate mitral regurgitation.
Well seated normally functioning bioprosthetic aortic valve(S/p 26 mm Álvarez
Annabella transcatheter aortic valve replacement).
Compared to the prior on 08/04/2023, the regional wall motion abnormalities
appear new and moderate mitral regurgitation is now seen.
Data Reviewed
-
EKG: Tracing Personally Visualized and interpreted (paced)
Radiology: Report Reviewed by me
Ultrasound: Report Reviewed by me
Medical Tests (Nuc Med, Echo etc): Report Reviewed by me
Labs: Labs Reviewed by me
[2024-07-29] MEDS: LASIX 20 MG IV (17:45)
[2024-07-29] MEDS: STERILE WATER FOR INJECTION 20 ML IV (19:14)
[2024-07-29] MEDS: ROCEPHIN 2000 MG IV (19:14)
--- NOTE | 2024-07-29 19:29 | EDRN ---
Attempting to give verbal report to RN in IMU for bed 3342 at this time.
[2024-07-29] MEDS: AMPICILLIN 108 MG IV (19:35)
--- NOTE | 2024-07-29 19:38 | EDRN ---
Verbal REport given to IMU RN for 3061 which is dirty at this time.
[2024-07-29] MEDS: LIPITOR 40 MG PO (22:31)
[2024-07-29] MEDS: REMERON 7.5 MG PO (22:31)
[2024-07-29] MEDS: TYLENOL 1000 MG PO (22:31)
[2024-07-29] MEDS: SENOKOT 17.2 MG PO (22:31)
[2024-07-30] VITALS (16 sets, daily range): BP systolic 89–138; BP diastolic 50–74; PULSE 70; O2SAT 96; BMI 27.4
[2024-07-30] MEDS: METHOCARBAMOL 500 MG PO ×3 (00:53→15:05)
[2024-07-30] MEDS: AMPICILLIN 108 MG IV ×4 (00:53→18:34)
[2024-07-30 03:59] LABS: Hematocrit 25.7 % (37.0-47.0); Hemoglobin 8.3 g/dL (12.0-16.0); Mean Corp Hgb Conc. 32.3 g/dL (33.0-37.0); Mean Corpuscular Hgb 30.2 pg (27.0-31.0); Mean Corpuscular Volume 93.5 fL (81.0-99.0); Mean Platelet Volume 9.2 fL (7.4-10.4); Platelet Count 247 10^3/uL (130-400); Red Blood Cell Count 2.75 10^6/uL (4.20-5.40); Red Cell Dist. Width 15.4 % (11.5-14.5); White Blood Cell Count 6.2 10^3/uL (4.8-10.8)
[2024-07-30 04:03] LABS: Blood Urea Nitrogen 21 mg/dl (7-17); Calcium 8.5 mg/dl (8.4-10.2); Carbon Dioxide 29 mmol/L (22-30); Chloride 105 mmol/L (98-107); Estimated Creatinine Clearance 29 ml/min; Glucose 84 mg/dl (70-99); Potassium 3.8 mmol/L (3.5-5.1); Sodium 138 mmol/L (135-145); eGFR 40.05
--- NOTE | 2024-07-30 06:19 | PTCARENOTE ---
Admitted pt overnight. aaox1, confused and forgetful at timess. NIH score of 7. When first assessed L pupil 3mm while R was 2mm. This am theyre both 2mm. Vpaced on monitor. BPs ran softer in the middle of the night but now back to baseline.
Afebrile. Q2T. BA. Remained bedrest. IVAbx. will monitor.
[2024-07-30] MEDS: TYLENOL 1000 MG PO ×2 (08:02→15:04)
[2024-07-30] MEDS: PROTONIX 40 MG PO (08:02)
[2024-07-30] MEDS: PLAVIX 75 MG PO (08:02)
[2024-07-30] MEDS: PACERONE 100 MG PO (08:02)
[2024-07-30] MEDS: FEOSOL 325 MG PO (08:02)
[2024-07-30] MEDS: ROCEPHIN 2000 MG IV ×2 (08:06→19:56)
[2024-07-30] MEDS: SENOKOT 17.2 MG PO ×2 (08:06→19:57)
[2024-07-30] MEDS: STERILE WATER FOR INJECTION 20 ML IV ×2 (08:06→19:56)
[2024-07-30] MEDS: TOPROL XL 25 MG PO (08:06)
[2024-07-30] MEDS: XANAX 0.5 MG PO (08:06)
[2024-07-30] MEDS: LIDOCAINE 4% PATCH 1 PATCH TOPICAL (08:09)
[2024-07-30] MEDS: MIRALAX 17 GRAMS PO (08:10)
--- NOTE | 2024-07-30 09:20 | W.PN.ID1 ---
Date of Service
Date of Service: July 30, 2024
Today's Communication
Continue Ampicillin/Ceftriaxone.
Assessment / Plan
# Acute change in mental status
# Probable acute -subacute ischemic infarct left cerebellum by CT
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
# Recent STEMI s/p RCA stent (07/22/24) . Per cardiology RCA thrombus may have been vegetaion.
# hx TAVR, PPM
- Recommend MRI brain.
- Embolic CVA usually involves multiple infarcts, not solitary.
- No need for LP from ID standpoint.
- TTE: Dense mitral annular calcification cannot rule out vegetation. Moderate mitral regurgitation.
- Consider repeat GIANLUCA
- Continue Ampicillin 2g IV q6 and ceftriaxone 2g IV q12h x 6-8 weeks, as per Christine Carlson ID. Of note, both abx's have excellent [employer] penetration.
# Conditions NOTEMAN
HTN
HLD
DM
E. faecalis MV endocarditis, L2-L4 osteo/epidural abscess currently on amp/ceftriaxone (see 07/29 Consult Note for cortes detail)
CAD s/p PTCA with stenting (07/22/2024)
A-fib (on Eliquis)
PPM placement
Aortic stenosis s/p TAVR (06/2023)
GERD
CKD 3
Depression
Hx breast cancer s/p Bilateral mastectomy
Chief Complaint
-: Other (Endocarditis)
Subjective / Review of Systems
Feels cold, otherwise no other complaints.
Vital Signs / Physical Exam
Vital Signs
Vital Signs
Temp Pulse Resp BP Pulse Ox
97.2 F 70 19 132/65 97
07/30/24 07:35 07/30/24 08:06 07/30/24 04:00 07/30/24 08:06 07/30/24 04:00
Physical Exam
Constitutional: No Acute Distress
Cardiovascular: Regular Rate, S1/S2 and Murmur (axilla)
Pulmonary: Clear
Gastrointestinal: Soft, Non Tender, Non Distended and Normal Bowel Sounds
Extremities: Negative Edema
Neurological: AO x 3
Lines: PICC (RIJ no erythema)
Objective Data
Lab Data
Lab Results
07/30/24 03:36
07/30/24 03:36
ESR 82 mm/hour (0-20) H 07/29/24 11:54
Estimated Creat Clear 29 ml/min 07/30/24 03:36
Lactic Acid 1.2 mmol/L (0.7-2.0) 07/29/24 11:55
Total Bilirubin 0.6 mg/dl (0.2-1.3) 07/29/24 11:54
AST 26 U/L (14-36) 07/29/24 11:54
ALT 14 U/L (0-35) 07/29/24 11:54
Alkaline Phosphatase 144 U/L (38-126) H 07/29/24 11:54
C-Reactive Protein 41.60 mg/L (0.0-10.00) H 07/29/24 11:54
Most recent labs reviewed.
Micro Results:
07/29/24 11:54 Influenza Types A & B (NILS) - Final
Nasal Swab Negative for Influenza A & B, NAAT
Negative results must be combined with clinical observations
and patient history.
Nucleic Acid Amplification test (NAAT)performed on the
[employer] platform.
07/29/24 12:15 Blood Culture - Pending
Blood/Venous
07/29/24 11:54 Blood Culture - Pending
Blood/Venous
07/29/[address]: 1.2 cm focal region of asymmetric low attenuation in the peripheral left cerebellar hemisphere which is most suggestive of cytotoxic edema or encephalomalacia from an ischemic infarct (more likely acute to subacute than chronic).
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
--- NOTE | 2024-07-30 12:27 | W.PN.CD ---
Today's Communication / Plan
-
Home PO diuretics
Eliquis when OK from neuro perspective
cont DAPT for now
Impression / Plan
-
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
nursing facility because of acute onset of hallucinations. Given her recent STEMI I discussed with Dr. Rose interventional cardiology and in the absence of chest pain her elevated troponin is likely a type II NSTEMI versus nonischemic myocardial
injury given endocarditis and CVA. Additionally, she had a report in a prior echocardiogram about mitral valve anterior leaflet vegetation, but we did not see this on her echocardiogram here. Dr. Rose felt that she could have had a septic emboli
to her RCA and now given new CT findings possible septic emboli to her head.
Acute/subacute CVA
- Per Neuro DAPT for now holding Eliquis
- consideration of possible septic emboli given hx of MV vegetation that was not seen on echo done July 24?
CAD status post RCA STEMI July 22
- Continue DAPT holding Eliquis for now given concern for possible hemorrhagic conversion
- Continue statin
- peak is 2.36 likely nonischemic myocardial injury
MV endocarditis
- reported history of large anterior MV veg, not seen on recent echo --> possible septic emboli?
- echo below --> very poor surgical candidate would defer GIANLUCA at this point unless surgery planned
- cont abx
- obtain blood cx's
AF
- holding ELiquis given concern for septic emboli HRs controlled -> Resume once OK from neuro perspective
- cont amio
HFpEF
- transition to home PO
CHB s/p PPM
- paced rhythm
CKD
- trend
anemia
- stable
Subjective: Appears more lucid this AM
Echo July 302024: CONCLUSIONS
Normal LV size and function.
LVEF is 55-60% by visual estimation. Basal to mid inferior wall hypokinesis.
Normal RV size and function.
Dense mitral annular calcification cannot rule out vegetation. Moderate mitral
regurgitation.
TAVR. Álvarez Annabella 26. Peak/mean gradients are 16/10mmHg. No aortic
regurgitation is seen.
Estimated pulmonary artery pressure of 41 mmHg. Assuming a right atrial
pressure of 3 mmHg.
Compared to prior from July 24, 2024, estimated PASP is now slightly higher at
41 mmHg, previously 36 mmHg.
Echo July 24 2024: CONCLUSIONS
Normal biventricular size and global systolic function. Left ventricular
ejection fraction is 55-60% by volumetric assessment.
Basal to mid inferior and inferolateral hypokinesis.
Moderate mitral regurgitation.
Well seated normally functioning bioprosthetic aortic valve(S/p 26 mm Álvarez
Annabella transcatheter aortic valve replacement).
Compared to the prior on 08/04/2023, the regional wall motion abnormalities
appear new and moderate mitral regurgitation is now seen.
Physical Exam
Vital Signs/Labs
Vital Signs
Temp Pulse Resp BP Pulse Ox
97.7 F 70 19 132/65 97
07/30/24 11:00 07/30/24 08:06 07/30/24 04:00 07/30/24 08:06 07/30/24 04:00
07/29/24 07/30/24 07/31/24
06:59 06:59 06:59
Actual Weight 169 lb 12.095 oz
07/30/24 03:36
07/30/24 03:36
LAB Results
07/29/24 07/29/24 07/30/24
11:54 23:06 03:36
Troponin I 2.420 H* 2.360 H* 2.180 H*
07/30/24 07/30/24
09:51 15:47
Troponin I 1.940 H* Cancelled
Physical Exam
Constitutional: No acute distress
EENT: Anicteric
Cardiovascular: Rhythm & rate is regular
Respiratory: Respiratory effort normal
GI: Soft
Neuro/Psych: AO x 3
Data Reviewed
-
Date of Service: July 30, 2024
Medical Decision Making: Reviewed Test Results
EKG: Tracing Personally Visualized and interpreted (paced)
Echo: Tracing Personally Visualized and interpreted and Report Reviewed by me
Labs: Labs Reviewed by me
--- NOTE | 2024-07-30 12:35 | W.PN.NEURO.1 ---
Today's Communication / Plan
-
.
Subjective/Objective
Subjective Data
Date of Service: July 30, 2024
Neurology follow-up note.
Ms. Abdi reports no complaints. She denies having headache, change in vision or strength.
24-hour events, transiently hypotensive down to 89/52, afebrile
Labs: Hemoglobin 9.6�8.3, troponin 2.4�1.9, vitamin B12�845
Brain MRI is pending.
CT head wo contrast-1. 1.2 cm focal region of asymmetric low attenuation in the peripheral left cerebellar hemisphere which is most suggestive of cytotoxic edema or encephalomalacia from an ischemic infarct (more likely acute to subacute than
chronic).
2. 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
3. Mild white matter leukoaraiosis in the frontal lobes.
4. Mild diffuse cerebral and cerebellar volume loss.
PMH: Breast adenocarcinoma, s/p RT), A-fib, CAD, HFpEF, HTN, DLP, DM, CKD, anemia, vitamin B-12 deficiency, MARYANN, BMI 32,IDALIA, MDD,
PSH: Cataract surgery, PCI to RCA (07/22/24), Bioprosthetic TAVR, PPM, bilateral mastectomy
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
All:NKDA
ROS: Negative for headache, change in vision, strength, sensory deficits, coordination, positive for mild back pain.
General: Well developed. In no acute distress.
Cardio: Regular rate and rhythm without murmur. Extremities are without cyanosis or edema.
Neuro:
Mental Status: Alert, oriented to person, place, date was incorrect. Preserved attention and comprehension. Follows complex requests.
Cranial Nerves: Pupils are equally round, surgical. EOMs full. Visual frazier full to confrontation. No ptosis. No nystagmus. Face symmetric. Mildly impaired hearing AU. The palate elevated well. SCMs and traps 5/5. Tongue midline. No
dysarthria.
Motor: Normal bulk and tone. No pronator or arm drift. Strength 5/5 throughout, except for mild proximal leg weakness. No clonus.
Coordination: No dysmetria or tremor.
Gait: deferred
Assessment and Plan:
I. Left subacute to chronic cerebellar infarct. Likely etiology�embolic.
II. 1.3 cm meningioma posterior to the right cerebellar hemisphere with mild mass effect.
III. 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
IV. 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
V. Distal symmetric large fiber polyneuropathy
. PA Fib
-Fall and delirium precautions
-Please obtain medical records from [facility]
-Continue DAPT with close monitoring of hemoglobin
-Please follow-up polyneuropathy blood work
-Please obtain brain MRI with and without idalia if feasible or repeat CT head within 24 hours from the initial 1.
I personally reviewed all radiology and labs along with past medical records pertinent to current medical problems. Total time spent in patient care is 35 minutes.
Thank you for allowing us to participate in the care of this patient. We will continue to follow. Please do not hesitate to contact us with any questions or concerns.
Objective Data
Vital Signs
Temp Pulse Resp BP Pulse Ox
36.5 C 70 19 132/65 97
07/30/24 11:00 07/30/24 08:06 07/30/24 04:00 07/30/24 08:06 07/30/24 04:00
Lab Results
07/30/24 03:36
07/30/24 03:36
Sodium 138 mmol/L (135-145) 07/30/24 03:36
Potassium 3.8 mmol/L (3.5-5.1) 07/30/24 03:36
BUN 21 mg/dl (7-17) H 07/30/24 03:36
Glucose 84 mg/dl (70-99) 07/30/24 03:36
Calcium 8.5 mg/dl (8.4-10.2) 07/30/24 03:36
Patient Allergies
No Known Allergies Allergy (Verified 07/22/24 18:33)
Vital Signs and Labs
-
Vital Signs and Labs:
Vital Signs
Temp Pulse Resp BP Pulse Ox
36.5 C 70 19 132/65 97
07/30/24 11:00 07/30/24 08:06 07/30/24 04:00 07/30/24 08:06 07/30/24 04:00
Lab Results
07/30/24 03:36
07/30/24 03:36
Sodium 138 mmol/L (135-145) 07/30/24 03:36
Potassium 3.8 mmol/L (3.5-5.1) 07/30/24 03:36
BUN 21 mg/dl (7-17) H 07/30/24 03:36
Glucose 84 mg/dl (70-99) 07/30/24 03:36
Calcium 8.5 mg/dl (8.4-10.2) 07/30/24 03:36
Medications
-
Medications:
Generic Name Dose Route Start Last Admin
Trade Name Freq PRN Reason Stop Dose Admin
Acetaminophen 1,000 mg 07/30/24 00:00 07/30/24 08:02
Acetaminophen 500 Mg Tablet PO 08/27/24 00:00 1,000 mg
Q8 MAURILIO Administration
Alprazolam 0.5 mg 07/30/24 08:00 07/30/24 08:06
Alprazolam 0.5 Mg Tablet PO 08/27/24 07:59 0.5 mg
DAILY MAURILIO Administration
Amiodarone HCl 100 mg 07/30/24 08:00 07/30/24 08:02
Amiodarone 200 Mg Tablet PO 08/27/24 07:59 100 mg
DAILY MAURILIO Administration
Atorvastatin Calcium 40 mg 07/29/24 22:00 07/29/24 22:31
Atorvastatin (Lipitor) 40 Mg Tablet PO 08/26/24 21:59 40 mg
HS MAURILIO Administration
Bisacodyl 10 mg 07/29/24 21:47
Bisacodyl 10 Mg Rectal Suppository RECTAL 08/26/24 21:46
DAILYPRN PRN
if no bm in 8hr after MOM
Ceftriaxone Sodium 2,000 mg 07/29/24 20:00 07/30/24 08:06
Ceftriaxone 2,000 Mg/20 Ml Vial IV 2,000 mg
Q12H MAURILIO Administration
Clopidogrel Bisulfate 75 mg 07/30/24 08:00 07/30/24 08:02
Clopidogrel 75 Mg Tablet PO 08/27/24 07:59 75 mg
DAILY MAURILIO Administration
Ferrous Sulfate 325 mg 07/30/24 08:00 07/30/24 08:02
Ferrous Sulfate 325 Mg Tablet PO 08/27/24 07:59 325 mg
DAILY MAURILIO Administration
Furosemide 20 mg 07/31/24 08:00
Furosemide 20 Mg Tablet PO 08/28/24 07:59
MoWeFr@0800 MAURILIO
Ampicillin Sodium 2,000 mg/ 108 mls @ 108 mls/hr 07/29/24 18:00 07/30/24 11:19
Sodium Chloride IV 108 mls
Q6H MAURILIO Administration
Lidocaine 1 patch 07/30/24 08:00 07/30/24 08:09
Lidocaine 4% Topical Patch TOPICAL 08/27/24 07:59 1 patch
DAILY MAURILIO Administration
Protocol
Methocarbamol 500 mg 07/30/24 00:00 07/30/24 08:06
Methocarbamol 500 Mg Tablet PO 08/27/24 00:00 500 mg
Q8 MAURILIO Administration
Metoprolol Succinate 25 mg 07/30/24 08:00 07/30/24 08:06
Metoprolol 25 Mg Extended Release Tablet PO 08/27/24 07:59 25 mg
DAILY MAURILIO Administration
Mirtazapine 7.5 mg 07/29/24 22:00 07/29/24 22:31
Mirtazapine 7.5 Mg Regular Release Tablet PO 08/26/24 21:59 7.5 mg
HS MAURILIO Administration
Oxycodone HCl 5 mg 07/29/24 21:47
Oxycodone 5 Mg Regular Release Tablet PO 08/12/24 21:46
Q4HPRN PRN
severe pain
Pantoprazole Sodium 40 mg 07/30/24 08:00 07/30/24 08:02
Pantoprazole 40 Mg Delayed Release Tablet PO 08/27/24 07:59 40 mg
DAILY MAURILIO Administration
Patch Removal 1 patch 07/30/24 20:00
Remove Lidocaine Patch REMOVE 08/27/24 19:59
DAILY@2000 MAURILIO
Polyethylene Glycol 17 grams 07/30/24 08:00 07/30/24 08:10
Polyethylene Glycol Powder 17 Grams Packet PO 08/27/24 07:59 17 grams
DAILY MAURILIO Administration
Sennosides 17.2 mg 07/29/24 21:47 07/30/24 08:06
Sennosides (Senokot) 8.6 Mg Tablet PO 08/26/24 21:46 17.2 mg
BID MAURILIO Administration
Sodium Biphosphate/Sodium Phosphate 118 ml 07/29/24 21:47
Fleet Phosphate Enema (Adult) 135 Ml Bottle RECTAL 08/26/24 21:46
DAILYPRN PRN
if no bm 8hr after suppository
Sodium Chloride 0 flush 07/29/24 18:00
Sodium Chloride 0.9% (Flush) Syringe IV 08/26/24 17:59
PER PROTOCOL MAURILIO
Sterile Water 20 ml 07/29/24 20:00 07/30/24 08:06
Sterile Water For Injection 20 Ml Vial IV 08/26/24 19:59 20 ml
Q12 MAURILIO Administration
Home Medications
-
Home Medications
furosemide 20 mg tablet 20 mg PO MOWEFR Fluid Retention/Swelling 04/19/23
metoprolol succinate 25 mg tablet,extended release 24 hr 25 mg PO DAILY Heart Disease/Condition 04/19/23
polyethylene glycol 3350 17 gram oral powder packet (Miralax) 17 g PO DAILY Constipation 04/19/23
mirtazapine 7.5 mg tablet 7.5 mg PO HS Mental Health/Anxiety 04/27/23
pantoprazole 40 mg tablet,delayed release 40 mg PO DAILY Gastrointestinal Issue 07/01/23
acetaminophen 500 mg tablet 1,000 mg PO Q8H mild pain, fever >100.4 07/22/24
bisacodyl 10 mg rectal suppository (Dulcolax (bisacodyl)) 10 mg NV DAILYPRN PRN if no bm in 8hr after MOM 07/22/24
magnesium hydroxide 400 mg/5 mL oral suspension (Milk of Magnesia) 2,400 mg PO DAILYPRN PRN if no bm x2 days 07/22/24
sodium phosphates 19 gram-7 gram/118 mL enema (Fleet Enema) 118 ml NV DAILYPRN PRN if no bm 8hr after suppository 07/22/24
amiodarone 200 mg tablet 100 mg (1/2 x 200 mg) PO DAILY Heart Disease/Condition #0 tabs 07/25/24
apixaban 2.5 mg tablet (Eliquis) 2.5 mg PO BID Blood clot prevention/tx #0 tabs 07/25/24
ceftriaxone 1 gram intravenous solution 2 g IV Q12H Infection #0 ea 07/25/24
clopidogrel 75 mg tablet 75 mg PO DAILY Blood clot prevention/tx #0 tabs 07/25/24
ferrous sulfate 325 mg (65 mg iron) tablet 325 mg PO DAILY anemia #60 tabs 07/25/24
oxycodone 5 mg tablet 5 mg PO Q4HPRN PRN severe pain #12 tabs 07/25/24
sennosides 8.6 mg tablet (Aydee-mandy) 17.2 mg (2 x 8.6 mg) PO BID Constipation #0 tabs 07/25/24
alprazolam 0.5 mg tablet (Xanax) 0.5 mg PO DAILY anxiety 07/29/24
ampicillin sodium 2 gram intravenous solution 2 g IV Q8H Infection 07/29/24
atorvastatin 40 mg tablet 40 mg PO HS High cholesterol 07/29/24
cyclobenzaprine 5 mg tablet 5 mg PO DAILY Muscle Spasms 07/29/24
cyclobenzaprine 5 mg tablet 5 mg PO DAILYPRN PRN give if first tablet doesnot work with an hour 07/29/24
lidocaine 4 % topical patch 1 patch topical DAILY back pain 07/29/24
methocarbamol 500 mg tablet 500 mg PO Q8H Muscle Spasms 07/29/24
sodium chloride 0.9 % (flush) 10 ml IV Q8H before and after iv meds 07/29/24
zinc oxide 20 % topical ointment 1 applic topical Q2HPRN PRN incontinent 07/29/24
zinc oxide 20 % topical ointment 1 applic topical TID Skin Issues 07/29/24
--- NOTE | 2024-07-30 12:52 | W.PN.HOSP.TC ---
Today's Communication/Plan
-
Assessment / Plan
Assessment / Plan
Scleral Anicteric
No JVD
CTABL
RRR, S1/S2 with a systolic murmur at the apex
Soft, NT, ND, BS+
Warm, Dry
AAOx3 (person, place, year, and took some time to tell me who the president was)
Toxic metabolic encephalopathy versus acute CVA/embolic CVA. Low clinical suspicion for meningitis at this time as I cannot elicit meningeal signs. At this time seems resolved, not hallucinating
- Obtain MRI if PPM compatible if not likely will need to repeat CT head and neck along with brain within 24 hours or what ever neurology recommends in terms of next imaging studies needed
- 2D echocardiogram without vegetation noted to have internal mitral calcification which was present on prior, this was discussed with cardiology over the phone
- Repeat blood cultures if positive then would obtain GIANLUCA
- Check b12/folate, TSH
- Neuro and ID consult
STEMI�recent admission 1 week ago
- Will need to continue aspirin and Plavix along with statin and beta-sue
- Benefits outweigh risk at this time
- Appreciate neurology and cardiology's input on DAPT in the setting of acute/subacute CVA with recent stent placement
Endocarditis/discitis/epidural abscess
-- Most recent 2D echocardiogram that we have there was no vegetation noted on the mitral valve
- Continue long-term antibiotics with ampicillin Rocephin
- Appreciate infectious disease input
- Repeat blood cultures, if + then may need to obtain GIANLUCA
Troponin elevation, down trendings
- Likely type II NSTEMI in the setting of recent STEMI and could be related to downtrending event or coronary engagement during [facility]
- No further trend
Atrial fibrillation and known history of complete heart block s/p PPM
- Continue amiodarone and beta-sue
- Will hold Eliquis and allow for monotherapy with aspirin for now
- Appreciate cardiology's and neurology's input into plan Eliquis should be resumed
Chronic HFpEF although chest x-ray does show mild edema along with cardiomegaly
- Therefore we will treat for acute on chronic HFpEF
- IV Lasix 20 mg now, reassess volume status tomorrow
CKD stage IIIb
Baseline creatinine around 1.3-1.4
- Avoid nephrotoxins
- Avoid hypotension
- Monitor urinary output
DVT prophylaxis
SCDs
DNR/DNI confirmed by son
Son Jarad currently making medical decision
On discharge I discussed this with cardiology should be Eliquis Plavix. At this time continue DAPT and hold Eliquis. However, we would confirm this when ready for discharge.
Anticipated Discharge: > 48 hours
Subjective/Interval History
-
Date of Service: July 30, 2024
Objective Data
-
Labs:
Laboratory Results
07/30/24
03:36
WBC 6.2
Hgb 8.3 L
Hct 25.7 L
Plt Count 247 D
Sodium 138
Potassium 3.8
Chloride 105
Carbon Dioxide 29
BUN 21 H
Creatinine 1.3 H
Glucose 84
Calcium 8.5
Vital Signs:
Vital Signs
Temp Pulse Resp BP Pulse Ox
97.7 F 70 19 132/65 96
07/30/24 11:00 07/30/24 08:06 07/30/24 04:00 07/30/24 08:06 07/30/24 08:31
I&O
07/29/24 07/30/24 07/31/24
06:59 06:59 06:59
Intake Total 266 / 266
Balance 266 / 266
--- NOTE | 2024-07-30 15:35 | CM ---
Addendum entered by Akua Perez 07/30/24 16:15:
SNF preferences: [facility]; #2 [facility] and #3 [facility]
Referrals sent via [facility]
Original Note:
Met with patient and son at bedside; initial assessment completed
Pharmacy verified: [facility] @ [address] [facility]
Family Physician verified: Radha Vasquez DO; [address] [place] [address]
Patient admitted from [facility]; does not wish to return to that facility
Prior to recent hospitalizations and SNF stay, patient lived in a one floor home with her . is on Home Hospice with caregivers
PLOF: at baseline she was independent with ADLs and ambulation; Per PT she is currently assist of two
NO Home Health utilization in the past
Transport to be determined; will probably need ambulance
Plan: discharge to a SNF; alternative list of facilities provided; Referrals will be sent once preferences are identified
--- NOTE | 2024-07-30 18:12 | PTCARENOTE ---
Assumed care of Pt at shift change; Pt resting comfortably in bed; AAO x 3; Mentation improved from previous shift; NIH = 2, R leg drift; 96% on RA; VSS; Will continue to monitor and assess.
[2024-07-30] MEDS: REMERON 7.5 MG PO (21:39)
[2024-07-30] MEDS: LIPITOR 40 MG PO (21:39)
[2024-07-31] VITALS (17 sets, daily range): BP systolic 81–135; BP diastolic 55–90; PULSE 70–74; O2SAT 94–98; BMI 28.1
[2024-07-31] MEDS: AMPICILLIN 108 MG IV ×4 (00:16→17:10)
[2024-07-31] MEDS: TYLENOL 1000 MG PO ×3 (00:16→17:10)
[2024-07-31] MEDS: METHOCARBAMOL 500 MG PO ×3 (00:16→17:10)
[2024-07-31 05:03] LABS: Hematocrit 28.3 % (37.0-47.0); Hemoglobin 9.3 g/dL (12.0-16.0); Mean Corp Hgb Conc. 32.9 g/dL (33.0-37.0); Mean Corpuscular Hgb 30.9 pg (27.0-31.0); Mean Platelet Volume 9.7 fL (7.4-10.4); Platelet Count 255 10^3/uL (130-400); Red Blood Cell Count 3.01 10^6/uL (4.20-5.40); Red Cell Dist. Width 15.3 % (11.5-14.5); White Blood Cell Count 6.4 10^3/uL (4.8-10.8)
[2024-07-31 05:13] LABS: Blood Urea Nitrogen 22 mg/dl (7-17); Calcium 8.4 mg/dl (8.4-10.2); Carbon Dioxide 27 mmol/L (22-30); Chloride 104 mmol/L (98-107); Estimated Creatinine Clearance 32 ml/min; Glucose 90 mg/dl (70-99); Potassium 3.6 mmol/L (3.5-5.1); Sodium 137 mmol/L (135-145); eGFR 44.08
[2024-07-31 06:13] LABS: TSH Reflex To Free T4 2.57 uIU/ml (0.47-4.68)
[2024-07-31 06:49] LABS: Folate 6.6 ng/ml (2.76-20); Vitamin B12 900 pg/ml (239-931)
[2024-07-31] MEDS: XANAX 0.5 MG PO (08:16)
[2024-07-31] MEDS: FEOSOL 325 MG PO (08:16)
[2024-07-31] MEDS: PROTONIX 40 MG PO (08:16)
[2024-07-31] MEDS: ROCEPHIN 2000 MG IV ×2 (08:17→20:20)
[2024-07-31] MEDS: PLAVIX 75 MG PO (08:17)
[2024-07-31] MEDS: LIDOCAINE 4% PATCH 1 PATCH TOPICAL (08:17)
[2024-07-31] MEDS: STERILE WATER FOR INJECTION 20 ML IV ×2 (08:17→20:20)
[2024-07-31] MEDS: MIRALAX PO (08:18)
[2024-07-31] MEDS: SENOKOT PO ×2 (08:18→20:20)
[2024-07-31] MEDS: TOPROL XL 25 MG PO (08:18)
[2024-07-31] MEDS: PACERONE 100 MG PO (08:18)
[2024-07-31] MEDS: LASIX 20 MG PO (08:26)
--- NOTE | 2024-07-31 08:52 | W.PN.CD ---
Today's Communication / Plan
-
continue neuro workup
asa/plavix with eventual plavix/eliquis once deemed safe
only consider further workup for endo if positive BCx, worsening CHF, more emboli, etc.
Impression / Plan
-
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
nursing facility because of acute onset of hallucinations. Given her recent STEMI, troponin elevation is likely residual resolving myocardial injury versus nonischemic myocardial injury given endocarditis and CVA. Additionally, she had a report in
a prior echocardiogram about mitral valve anterior leaflet vegetation, but we did not see this on her echocardiogram here. Pathology from her cath is suggestive that she may have had a septic emboli to her RCA and now given new CT findings concern
for possible septic emboli to her head.
Acute/subacute CVA
- Per Neuro DAPT for now holding Eliquis given concern for hemorrhagic conversion
- consideration of possible septic emboli given hx of MV vegetation that was not seen on echo done July 24?
- given singular lesion, they are less in favor of this representing an embolic process
- plans per neuro for MRI head, EEG
CAD status post RCA STEMI July 22
- Continue DAPT holding Eliquis for now given concern for possible hemorrhagic conversion
- Continue statin
- current troponin elevation likely non-ischemic myocardial injury, no chest pain
MV endocarditis
- reported history of large anterior MV veg, not seen on post PCI recent echo or echo here --> possible septic emboli?
- echo below --> no clear evidence of endocarditis though mitral calcification makes it hard to exclude vegetation on TTE, very poor surgical candidate would defer GIANLUCA at this point unless surgery planned
- cont abx
- obtain blood cx's, if newly positive may have to consider GIANLUCA
- apical blowing murmur on exam, no CHF sx
AF
- holding ELiquis given concern for septic emboli HRs controlled -> Resume once OK from neuro perspective (at which point would drop asa and do plavix/eliquis)
- cont amio
HFpEF
- transition to home PO
- no SOB, examines euvolemic
CHB s/p PPM
- paced rhythm
CKD
- trend
anemia
- stable
Subjective: Appears lucid this AM, back pain better with patches, no SOB/CP
Echo July 30: 2024: CONCLUSIONS
Normal LV size and function.
LVEF is 55-60% by visual estimation. Basal to mid inferior wall hypokinesis.
Normal RV size and function.
Dense mitral annular calcification cannot rule out vegetation. Moderate mitral
regurgitation.
TAVR. Álvarez Annabella 26. Peak/mean gradients are 16/10mmHg. No aortic
regurgitation is seen.
Estimated pulmonary artery pressure of 41 mmHg. Assuming a right atrial
pressure of 3 mmHg.
Compared to prior from July 24, 2024, estimated PASP is now slightly higher at
41 mmHg, previously 36 mmHg.
Echo July 24 2024: CONCLUSIONS
Normal biventricular size and global systolic function. Left ventricular
ejection fraction is 55-60% by volumetric assessment.
Basal to mid inferior and inferolateral hypokinesis.
Moderate mitral regurgitation.
Well seated normally functioning bioprosthetic aortic valve(S/p 26 mm Álvarez
Annabella transcatheter aortic valve replacement).
Compared to the prior on 08/04/2023, the regional wall motion abnormalities
appear new and moderate mitral regurgitation is now seen.
Physical Exam
Vital Signs/Labs
Vital Signs
Temp Pulse Resp BP Pulse Ox
36.4 C 70 19 122/78 93
07/31/24 07:29 07/31/24 08:26 07/31/24 08:00 07/31/24 08:26 07/31/24 08:16
07/30/24 07/31/24 08/01/24
06:59 06:59 06:59
Actual Weight 77 kg 78.8 kg
07/31/24 04:50
07/31/24 04:50
LAB Results
07/29/24 07/29/24 07/30/24
11:54 23:06 03:36
Troponin I 2.420 H* 2.360 H* 2.180 H*
07/30/24 07/30/24
09:51 15:47
Troponin I 1.940 H* Cancelled
Physical Exam
Constitutional: No acute distress
Cardiovascular: Rhythm & rate is regular and Systolic murmur present
Respiratory: Respiratory effort normal
Neuro/Psych: AO x 3
Data Reviewed
-
Date of Service: July 31, 2024
Medical Decision Making: Reviewed Test Results
Echo: Tracing Personally Visualized and interpreted
Medical Tests (PFT, Pathology etc): Image Personally Visualized and interpreted
Labs: Labs Reviewed by me
--- NOTE | 2024-07-31 10:16 | PTOTSP ---
Speech Therapy Evaluation:
Pt presents with grossly functional oropharyngeal swallow at bedside, however precipitating risk factor of dysphagia includes acute vs subacute CVA. No overt s/sx of aspiration across trials. WBC WNL. Pt on room air. Passed 3oz swallow screen. CXR
without PNA. Neuro workup ongoing.
Recommend:
1. Continue IDDSI 7 (regular) solids and thin liquids
2. Medications as tolerated
3. General aspiration precautions
4. Distant supervision with intake
5. 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
--- NOTE | 2024-07-31 10:35 | EEG.RPT ---
Electroencephalogram Report
Recording
Date of EE07/31/24
Type of EEG: Routine
Length of EEG recordin minutes
Done with Video Recording: Yes
Patient Status: Inpatient
Recording Conditions: Awake and Drowsy
Hyperventilation Performed: No
Photic Stimulation Performed: Yes
Report
LESS THAN 1 HOUR EEG REPORT
LESS THAN 1 HOUR EEG INTERPRETATION:
Likely unremarkable EEG for age
CLINICAL CORRELATION:
Although normative values not been established for a person of this advanced age, the patient�s symmetry of the background suggests that this study was unremarkable.
A normal EEG does not rule out a diagnosis of epilepsy. If clinical suspicion for seizure persists, a prolonged recording may be warranted.
Clinical correlation is advised.
METHODS:
A 21 channel digitized electroencephalogram (EEG) was performed using the 10/20 international system of electrode placement and one-lead of ECG recorded. The [employer] quantitative review system was utilized.
ELECTROENCEPHALOGRAPHER IMPRESSION(S):
Quality of study
Good
Background
There was an unremarkable anterior-posterior voltage gradient of alpha frequency.
With eye opening the background activity changed to a low voltage mixture of frequencies.
There were no significant asymmetries of background activity noted.
Sleep
Drowsiness present
Photic Stimulation
No driving
ECG
Normal sinus rhythm
--- NOTE | 2024-07-31 10:42 | W.PN.NEURO.1 ---
Today's Communication / Plan
-
Awaiting MRI of brain with MRA head and neck
Continue DAPT, until after MRI and if there are no acute lesions, return to apixaban immediately
No indication for cholesterol-lowering agent as the patient has total cholesterol 100 with LDL 49
Neuro Assessment/Plan
Assessment
I. Left subacute to chronic cerebellar infarct. Likely etiology�embolic.
II. 1.3 cm meningioma posterior to the right cerebellar hemisphere with mild mass effect.
III. 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
IV. 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
V. Distal symmetric large fiber polyneuropathy
Patient was not a candidate for either tenecteplase or intra-arterial thrombectomy due to timeframe out of window
Plan
Awaiting MRI of brain with MRA head and neck
Continue DAPT, until after MRI and if there are no acute lesions, return to apixaban immediately
No indication for cholesterol-lowering agent as the patient has total cholesterol 100 with LDL 49
Provide medical educational materials
Goal of normotension
Goal of normoglycemia
Rehabilitation evaluations
Will follow pending results.
Subjective/Objective
Subjective Data
Date of Service: July 31, 2024
Objective Data
Vital Signs
Temp Pulse Resp BP Pulse Ox
36.4 C 70 19 122/78 93
07/31/24 07:29 07/31/24 08:26 07/31/24 08:00 07/31/24 08:26 07/31/24 08:16
Lab Results
07/31/24 04:50
07/31/24 04:50
Sodium 137 mmol/L (135-145) 07/31/24 04:50
Potassium 3.6 mmol/L (3.5-5.1) 07/31/24 04:50
BUN 22 mg/dl (7-17) H 07/31/24 04:50
Glucose 90 mg/dl (70-99) 07/31/24 04:50
Calcium 8.4 mg/dl (8.4-10.2) 07/31/24 04:50
Vitamin B12 900 pg/ml (669-378) 07/31/24 04:50
Patient Allergies
No Known Allergies Allergy (Verified 07/22/24 18:33)
Physical Exam
-
Data Reviewed
-
CT Head: Report Reviewed and Image Reviewed
Past History
Past History
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
ED Past Surgical History: Cardiac
Social History
Tobacco: Non-smoker
Alcohol: None
Drug: None
Personal:
Family History
Family History: Other (Reviewed and noncontributory)
Medications
-
Medications:
Generic Name Dose Route Start Last Admin
Trade Name Freq PRN Reason Stop Dose Admin
Acetaminophen 1,000 mg 07/30/24 00:00 07/31/24 08:17
Acetaminophen 500 Mg Tablet PO 08/27/24 00:00 1,000 mg
Q8 MAURILIO Administration
Alprazolam 0.5 mg 07/30/24 08:00 07/31/24 08:16
Alprazolam 0.5 Mg Tablet PO 08/27/24 07:59 0.5 mg
DAILY MAURILIO Administration
Amiodarone HCl 100 mg 07/30/24 08:00 07/31/24 08:18
Amiodarone 200 Mg Tablet PO 08/27/24 07:59 100 mg
DAILY MAURILIO Administration
Atorvastatin Calcium 40 mg 07/29/24 22:00 07/30/24 21:39
Atorvastatin (Lipitor) 40 Mg Tablet PO 08/26/24 21:59 40 mg
HS MAURILIO Administration
Bisacodyl 10 mg 07/29/24 21:47
Bisacodyl 10 Mg Rectal Suppository RECTAL 08/26/24 21:46
DAILYPRN PRN
if no bm in 8hr after MOM
Ceftriaxone Sodium 2,000 mg 07/29/24 20:00 07/31/24 08:17
Ceftriaxone 2,000 Mg/20 Ml Vial IV 2,000 mg
Q12H MAURILIO Administration
Clopidogrel Bisulfate 75 mg 07/30/24 08:00 07/31/24 08:17
Clopidogrel 75 Mg Tablet PO 08/27/24 07:59 75 mg
DAILY MAURILIO Administration
Ferrous Sulfate 325 mg 07/30/24 08:00 07/31/24 08:16
Ferrous Sulfate 325 Mg Tablet PO 08/27/24 07:59 325 mg
DAILY MAURILIO Administration
Furosemide 20 mg 07/31/24 08:00 07/31/24 08:26
Furosemide 20 Mg Tablet PO 08/28/24 07:59 20 mg
MoWeFr@0800 MAURILIO Administration
Ampicillin Sodium 2,000 mg/ 108 mls @ 108 mls/hr 07/29/24 18:00 07/31/24 13:18
Sodium Chloride IV 108 mls
Q6H MAURILIO Administration
Lidocaine 1 patch 07/30/24 08:00 07/31/24 08:17
Lidocaine 4% Topical Patch TOPICAL 08/27/24 07:59 1 patch
DAILY MAURILIO Administration
Protocol
Methocarbamol 500 mg 07/30/24 00:00 07/31/24 08:16
Methocarbamol 500 Mg Tablet PO 08/27/24 00:00 500 mg
Q8 MAURILIO Administration
Metoprolol Succinate 25 mg 07/30/24 08:00 07/31/24 08:18
Metoprolol 25 Mg Extended Release Tablet PO 08/27/24 07:59 25 mg
DAILY MAURILIO Administration
Mirtazapine 7.5 mg 07/29/24 22:00 07/30/24 21:39
Mirtazapine 7.5 Mg Regular Release Tablet PO 08/26/24 21:59 7.5 mg
HS MAURILIO Administration
Oxycodone HCl 5 mg 07/29/24 21:47
Oxycodone 5 Mg Regular Release Tablet PO 08/12/24 21:46
Q4HPRN PRN
severe pain
Pantoprazole Sodium 40 mg 07/30/24 08:00 07/31/24 08:16
Pantoprazole 40 Mg Delayed Release Tablet PO 08/27/24 07:59 40 mg
DAILY MAURILIO Administration
Patch Removal 1 patch 07/30/24 20:00 07/30/24 19:57
Remove Lidocaine Patch REMOVE 08/27/24 19:59 1 patch
DAILY@2000 MAURILIO Administration
Polyethylene Glycol 17 grams 07/30/24 08:00 07/31/24 08:18
Polyethylene Glycol Powder 17 Grams Packet PO 08/27/24 07:59 Not Given
DAILY MAURILIO
Sennosides 17.2 mg 07/29/24 21:47 07/31/24 08:18
Sennosides (Senokot) 8.6 Mg Tablet PO 08/26/24 21:46 Not Given
BID MAURILIO
Sodium Biphosphate/Sodium Phosphate 118 ml 07/29/24 21:47
Fleet Phosphate Enema (Adult) 135 Ml Bottle RECTAL 08/26/24 21:46
DAILYPRN PRN
if no bm 8hr after suppository
Sodium Chloride 0 flush 07/29/24 18:00
Sodium Chloride 0.9% (Flush) Syringe IV 08/26/24 17:59
PER PROTOCOL MAURILIO
Sterile Water 20 ml 07/29/24 20:00 07/31/24 08:17
Sterile Water For Injection 20 Ml Vial IV 08/26/24 19:59 20 ml
Q12 MAURILIO Administration
--- NOTE | 2024-07-31 11:32 | W.PN.HOSP.TC ---
Addendum entered and electronically signed by Esvin Hernandez MD 07/31/24 17:21:
Seen and examined by me independently in collaboration with the medical record transcriber.
Lab data and imaging data reviewed.
Addendum as below :
Patient voicing no specific complaints. No hallucinations. Denies limb weakness.
Patient ruled in for stroke. Await MRI. Discussed with neurology who clears for resumption of antiplatelet treatment and Eliquis.
Appreciate cardiology input. Recommend medical management for history of recent endocarditis.
Continue with antibiotics for possible infected endocarditis, Enterobacter faecalis bacteremia.
Original Note:
Today's Communication/Plan
-
Continue IV abx. For MRI today
Assessment / Plan
Assessment / Plan
Acute-subacute CVA:
Encephalopathy secondary to CVA. Appears resolved.
Possibility for embolic etiology given recent hx of enterococcus faecalis bacteremia and [place] mitral valve endocarditis. On IV abx therapy. Blood cultures negative so far.
- Await MRI.
- EEG normal
- continue DAPT. Clopidogrel only and resume Eliquis on discharge
- Normal b12/folate, TSH
- Appreciate neuro, cards, ID input
STEMI:
07/26, s/p RCA stent
- Will need to continue aspirin and Plavix along with statin and beta-sue, DC on Clopidogrel, statin, BB given resumption of Eliquis upon DC
- Await path report of tissue removed from cath procedure with suspicion for vegetation
- Appreciate neurology and cardiology's input
Endocarditis/discitis/epidural abscess:
- Echo with dense mitral calcification - cannot rule out vegetation
- Continue long-term IV antibiotics with ampicillin Rocephin. Blood cultures negative to date
- Appreciate infectious disease input
Troponin elevation,
- Likely type II NSTEMI in the setting of recent STEMI and could be related to downtrending event or coronary engagement during [facility]
- No further trend
Atrial fibrillation and known history of complete heart block s/p PPM
- Continue amiodarone and beta-sue
- Holding Eliquis. Will restart upon DC
Chronic HFpEF
Does not appear fluid overloaded.
- continue home lasix regimen
CKD stage IIIb
Baseline creatinine around 1.3-1.4
- Avoid nephrotoxins
- Avoid hypotension
- Monitor urinary output
DVT prophylaxis
SCDs
DNR/DNI confirmed by son
Son Jarad currently making medical decision
Anticipated Discharge: 24 - 48 hours
Subjective/Interval History
-
Date of Service: July 31, 2024
Patient reports chronic lower back and leg pain, unchanged from baseline. Otherwise has no complaints today.
Objective Data
-
Labs:
Laboratory Results
07/31/24
04:50
WBC 6.4
Hgb 9.3 L
Hct 28.3 L
Plt Count 255
Sodium 137
Potassium 3.6
Chloride 104
Carbon Dioxide 27
BUN 22 H
Creatinine 1.2 H
Glucose 90
Calcium 8.4
Vital Signs:
Vital Signs
Temp Pulse Resp BP Pulse Ox
97.6 F 70 14 128/61 98
07/31/24 07:29 07/31/24 11:06 07/31/24 11:06 07/31/24 11:06 07/31/24 11:06
I&O
07/30/24 07/31/24 08/01/24
06:59 06:59 06:59
Intake Total 266 / 266 216 / 216
Balance 266 / 266 216 / 216
Review of Systems
-
History Source: Patient
Respiratory: Denies Trouble Breathing
Cardiac: Denies Chest Pain or Palpitations
Abdomen/GI: Denies Abdominal Pain, Nausea, Vomiting, Diarrhea or Constipated
Genitourinary: Denies Dysuria or Difficulty Voiding
Musculoskeletal: Reports Other (lower back and Right LE pain)
Physical Exam
-
General: Well Nourished, No Apparent Distress and Comfortable
HEENT: Normocephalic, Atraumatic, PERRLA and Other (No neck stiffness)
Respiratory: Clear to Auscultation and Non Labored Respirations; Negative Wheezes, Rales, Rhonchi or Crackles
Cardiac: Regular Rhythm and S1/S2; Negative Murmur, Rub or Calf Tenderness
GI: Soft, Nontender, Nondistended and Normal Bowel Sounds
Musculoskeletal: No Clubbing, No Cyanosis and No Edema
Neuro: Awake, Alert, Oriented and Other (NIHSS=0)
Psych: Calm
--- NOTE | 2024-07-31 12:00 | PTCARENOTE ---
Assumed care of patient at 0645 after receiving report. Assessment completed and documented on worklist under shift assessment.
Patient is pleasant, AAOX3. NIH 2, however RLE deficit likely related to her h/o L1-2 Discitis / L2-4 Epidural Abscess. RA, CTA. V-paced on monitor. + LE Edema. Round abdomen, + BS. Continent of bowel and bladder. Assisted OOB to chair 1-2 Person
assist with RW after using commode. Awaiting MRI.
--- NOTE | 2024-07-31 12:53 | W.PN.ID1 ---
Date of Service
Date of Service: July 31, 2024
Today's Communication
Continue antibiotics.
Assessment / Plan
# Acute change in mental status
# Probable acute -subacute ischemic infarct left cerebellum by CT
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
# Recent STEMI s/p RCA stent (07/22/24) . Per cardiology RCA thrombus may have been vegetation.
# hx TAVR, PPM
- Awaiting MRI brain.
- Embolic CVA usually involves multiple infarcts, not solitary.
- TTE: Dense mitral annular calcification cannot rule out vegetation. Moderate mitral regurgitation.
- Continue Ampicillin 2g IV q6 and ceftriaxone 2g IV q12h x 6-8 weeks, as per Christine Carlson ID.
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
HTN
HLD
DM
E. faecalis MV endocarditis, L2-L4 osteo/epidural abscess currently on amp/ceftriaxone (see 07/29 Consult Note for cortes detail)
CAD s/p PTCA with stenting (07/22/2024)
A-fib (on Eliquis)
PPM placement
Aortic stenosis s/p TAVR (06/2023)
GERD
CKD 3
Depression
Hx breast cancer s/p Bilateral mastectomy
Chief Complaint
-: Other (Endocarditis)
Subjective / Review of Systems
No new complaints.
Vital Signs / Physical Exam
Vital Signs
Vital Signs
Temp Pulse Resp BP Pulse Ox
97.4 F 70 14 128/61 98
07/31/24 11:34 07/31/24 11:06 07/31/24 11:06 07/31/24 11:06 07/31/24 11:06
Physical Exam
Constitutional: No Acute Distress and Comfortable
Cardiovascular: Regular Rate, S1/S2 and Murmur (axilla)
Pulmonary: Clear
Gastrointestinal: Soft, Non Tender, Non Distended and Normal Bowel Sounds
Extremities: Negative Edema
Musculoskeletal: Negative Spinal Tenderness
Neurological: AO x 3
Lines: PICC (RIJ no erythema)
Objective Data
Lab Data
Lab Results
07/31/24 04:50
07/31/24 04:50
ESR 82 mm/hour (0-20) H 07/29/24 11:54
Estimated Creat Clear 32 ml/min 07/31/24 04:50
Lactic Acid 1.2 mmol/L (0.7-2.0) 07/29/24 11:55
Total Bilirubin 0.6 mg/dl (0.2-1.3) 07/29/24 11:54
AST 26 U/L (14-36) 07/29/24 11:54
ALT 14 U/L (0-35) 07/29/24 11:54
Alkaline Phosphatase 144 U/L (38-126) H 07/29/24 11:54
C-Reactive Protein 41.60 mg/L (0.0-10.00) H 07/29/24 11:54
Most recent labs reviewed.
Micro Results:
07/29/24 12:15 Blood Culture - Preliminary
Blood/Venous No Growth in 48 hours- Final report to follow
07/29/24 11:54 Blood Culture - Preliminary
Blood/Venous No Growth in 48 hours- Final report to follow
07/29/24 11:54 Influenza Types A & B (NILS) - Final
Nasal Swab Negative for Influenza A & B, NAAT
Negative results must be combined with clinical observations
and patient history.
Nucleic Acid Amplification test (NAAT)performed on the
[employer] platform.
07/29/[address]: 1.2 cm focal region of asymmetric low attenuation in the peripheral left cerebellar hemisphere which is most suggestive of cytotoxic edema or encephalomalacia from an ischemic infarct (more likely acute to subacute than chronic).
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
[2024-07-31] MEDS: REMERON 7.5 MG PO (22:43)
[2024-07-31] MEDS: LIPITOR 40 MG PO (22:43)
[2024-08-01] VITALS (16 sets, daily range): BP systolic 87–130; BP diastolic 49–68; PULSE 70; O2SAT 99; BMI 28.4
--- NOTE | 2024-08-01 00:08 | PTCARENOTE ---
Pt awake and alert, NIH assesed per order, no changes in nih assessment. see worklist documentation. Pt inc of urine and stool. barrier cream and sacral foam applied to sacrum. assessment as documented. call light in reach.
[2024-08-01] MEDS: METHOCARBAMOL 500 MG PO ×3 (00:35→18:01)
[2024-08-01] MEDS: AMPICILLIN 108 MG IV ×4 (00:36→18:06)
[2024-08-01] MEDS: TYLENOL 1000 MG PO ×3 (00:36→18:01)
[2024-08-01 04:55] LABS: Hematocrit 25.7 % (37.0-47.0); Hemoglobin 8.2 g/dL (12.0-16.0); Mean Corp Hgb Conc. 31.9 g/dL (33.0-37.0); Mean Corpuscular Hgb 30.4 pg (27.0-31.0); Mean Corpuscular Volume 95.2 fL (81.0-99.0); Mean Platelet Volume 10.1 fL (7.4-10.4); Platelet Count 222 10^3/uL (130-400); Red Cell Dist. Width 15.4 % (11.5-14.5); White Blood Cell Count 5.4 10^3/uL (4.8-10.8)
[2024-08-01 05:17] LABS: Blood Urea Nitrogen 21 mg/dl (7-17); Calcium 8.2 mg/dl (8.4-10.2); Carbon Dioxide 27 mmol/L (22-30); Chloride 105 mmol/L (98-107); Estimated Creatinine Clearance 33 ml/min; Glucose 80 mg/dl (70-99); Potassium 3.6 mmol/L (3.5-5.1); Sodium 137 mmol/L (135-145); eGFR 40.05
[2024-08-01] MEDS: SENOKOT PO ×2 (08:19→08:25)
[2024-08-01] MEDS: FEOSOL 325 MG PO (08:19)
[2024-08-01] MEDS: PACERONE 100 MG PO (08:19)
[2024-08-01] MEDS: XANAX 0.5 MG PO (08:19)
[2024-08-01] MEDS: MIRALAX PO (08:19)
[2024-08-01] MEDS: TOPROL XL 25 MG PO (08:19)
[2024-08-01] MEDS: PLAVIX 75 MG PO (08:19)
[2024-08-01] MEDS: ROCEPHIN 2000 MG IV ×2 (08:20→20:18)
[2024-08-01] MEDS: PROTONIX 40 MG PO (08:20)
[2024-08-01] MEDS: STERILE WATER FOR INJECTION 20 ML IV ×2 (08:20→20:21)
[2024-08-01] MEDS: LIDOCAINE 4% PATCH 1 PATCH TOPICAL ×2 (08:20→13:12)
--- NOTE | 2024-08-01 10:20 | W.PN.ID1 ---
Date of Service
Date of Service: August 01, 2024
Today's Communication
Continue ampicillin/ceftriaxone.
Assessment / Plan
# Acute change in mental status
# Probable acute -subacute ischemic infarct left cerebellum by CT
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
# Recent STEMI s/p RCA stent (07/22/24) . Per cardiology RCA thrombus may have been vegetation.
# hx TAVR, PPM
- Awaiting MRI brain.
- Embolic CVA usually involves multiple infarcts, not solitary.
- TTE: Dense mitral annular calcification cannot rule out vegetation. Moderate mitral regurgitation.
- Continue Ampicillin 2g IV q6 and ceftriaxone 2g IV q12h x 6-8 weeks, as per Christine Carlson ID.
No indication to change antibiotics.
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
HTN
HLD
DM
E. faecalis MV endocarditis, L2-L4 osteo/epidural abscess currently on amp/ceftriaxone (see 07/29 Consult Note for cortes detail)
CAD s/p PTCA with stenting (07/22/2024)
A-fib (on Eliquis)
PPM placement
Aortic stenosis s/p TAVR (06/2023)
GERD
CKD 3
Depression
Hx breast cancer s/p Bilateral mastectomy
Chief Complaint
-: Other (Endocarditis)
Subjective / Review of Systems
Tailbone pain better with patch.
Vital Signs / Physical Exam
Vital Signs
Vital Signs
Temp Pulse Resp BP Pulse Ox
97.4 F 70 18 123/65 98
08/01/24 03:05 08/01/24 08:19 08/01/24 06:00 08/01/24 08:19 08/01/24 06:00
Physical Exam
Constitutional: No Acute Distress and Comfortable
Cardiovascular: Regular Rate, S1/S2, Murmur (axilla) and Other (RCW PPM site no erythema)
Pulmonary: Clear
Gastrointestinal: Soft, Non Tender, Non Distended and Normal Bowel Sounds
Extremities: Negative Edema
Musculoskeletal: Negative Spinal Tenderness
Neurological: AO x 3
Lines: PICC (RIJ no erythema)
Objective Data
Lab Data
Lab Results
08/01/24 04:19
08/01/24 04:19
ESR 82 mm/hour (0-20) H 07/29/24 11:54
Estimated Creat Clear 33 ml/min 08/01/24 04:19
Lactic Acid 1.2 mmol/L (0.7-2.0) 07/29/24 11:55
Total Bilirubin 0.6 mg/dl (0.2-1.3) 07/29/24 11:54
AST 26 U/L (14-36) 07/29/24 11:54
ALT 14 U/L (0-35) 07/29/24 11:54
Alkaline Phosphatase 144 U/L (38-126) H 07/29/24 11:54
C-Reactive Protein 41.60 mg/L (0.0-10.00) H 07/29/24 11:54
Most recent labs reviewed.
Micro Results:
07/29/24 12:15 Blood Culture - Preliminary
Blood/Venous No Growth in 48 hours- Final report to follow
07/29/24 11:54 Blood Culture - Preliminary
Blood/Venous No Growth in 48 hours- Final report to follow
07/29/24 11:54 Influenza Types A & B (NILS) - Final
Nasal Swab Negative for Influenza A & B, NAAT
Negative results must be combined with clinical observations
and patient history.
Nucleic Acid Amplification test (NAAT)performed on the
[employer] platform.
07/29/[address]: 1.2 cm focal region of asymmetric low attenuation in the peripheral left cerebellar hemisphere which is most suggestive of cytotoxic edema or encephalomalacia from an ischemic infarct (more likely acute to subacute than chronic).
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
Care Review
Plan reviewed with: Physician (Dr. Hernandez)
[2024-08-01] MEDS: ASPIR LOW (ENTERIC COATED) 81 MG PO (10:46)
--- NOTE | 2024-08-01 12:26 | W.PN.HOSP.TC ---
Addendum entered and electronically signed by Esvin Hernandez MD 08/01/24 14:52:
Seen and examined by me independently in collaboration with the medical esthetician.
Lab data and imaging data reviewed.
Addendum as below :
No overnight events.
Voices no new specific neurological symptoms.
Await MRI of the brain.
Continue with DAPT till MRI is resulted and if no hemorrhage start Eliquis.
Continue with antibiotics per ID.
Continue the PT/OT therapies.
Original Note:
Today's Communication/Plan
-
Continue DAPT pending MRI. Continue IV abx
Assessment / Plan
Assessment / Plan
Acute-subacute CVA:
Encephalopathy secondary to CVA. Resolved.
Possibility for embolic etiology given recent hx of enterococcus faecalis bacteremia and [place] mitral valve endocarditis. Currently still on IV abx therapy. Blood cultures negative so far.
- Await MRI.
- EEG normal
- continue DAPT. Potentially clopidogrel only and Eliquis resumption if MRI is without acute infarct
- Normal b12/folate, TSH
- Appreciate neuro, cards, ID input
STEMI:
07/26, s/p RCA stent
- Will need to continue aspirin and Plavix along with statin and beta-sue. Likely antiplatelet monotherapy and resumption of Eliquis after MRI
- Await path report of tissue removed from cath procedure with suspicion for vegetation
- Appreciate neurology and cardiology's input
Endocarditis/discitis/epidural abscess:
- Echo with dense mitral calcification - cannot rule out vegetation
- Continue long-term IV antibiotics with ampicillin Rocephin. Blood cultures negative.
- Appreciate infectious disease input
Troponin elevation,
- Likely type II NSTEMI in the setting of recent STEMI
- Peaked at 2.4 with downtrend. No further trend
Atrial fibrillation and known history of complete heart block s/p PPM
- Continue amiodarone and beta-sue
- Holding Eliquis for now
Chronic HFpEF
Does not appear fluid overloaded.
- continue home lasix regimen
CKD stage IIIb
Baseline creatinine around 1.3-1.4
- Avoid nephrotoxins
- Avoid hypotension
- Monitor urinary output
DVT prophylaxis
SCDs
DNR/DNI confirmed by son
Son Jarad currently making medical decision
Anticipated Discharge: Within 24 hours
Subjective/Interval History
-
Date of Service: August 01, 2024
No overnight events. No acute complaints.
Objective Data
-
Labs:
Laboratory Results
08/01/24
04:19
WBC 5.4
Hgb 8.2 L
Hct 25.7 L
Plt Count 222
Sodium 137
Potassium 3.6
Chloride 105
Carbon Dioxide 27
BUN 21 H
Creatinine 1.3 H
Glucose 80
Calcium 8.2 L
Vital Signs:
Vital Signs
Temp Pulse Resp BP Pulse Ox
97.8 F 70 15 103/59 96
08/01/24 07:15 08/01/24 10:06 08/01/24 10:06 08/01/24 10:06 08/01/24 10:06
I&O
07/31/24 08/01/24 08/02/24
06:59 06:59 06:59
Intake Total 216 / 216
Balance 216 / 216
Review of Systems
-
History Source: Patient
Constitutional: Denies Fever or No Appetite
Respiratory: Denies Trouble Breathing
Cardiac: Denies Chest Pain, Palpitations or Syncope
Abdomen/GI: Denies Abdominal Pain, Nausea, Vomiting, Diarrhea or Constipated
Genitourinary: Denies Dysuria or Difficulty Voiding
Musculoskeletal: Reports Other (back pain)
Neuro: Reports Weakness (RLE); Denies Dizzy or Headache
Physical Exam
-
General: Well Developed, Well Nourished, No Apparent Distress and Comfortable
HEENT: Normocephalic, Atraumatic, Anicteric and PERRLA
Respiratory: Clear to Auscultation, Wheezes, Rales, Rhonchi, Crackles and Non Labored Respirations
Cardiac: Regular Rhythm and S1/S2; Negative Murmur, Rub or Calf Tenderness
GI: Soft, Nontender, Nondistended and Normal Bowel Sounds
Musculoskeletal: No Clubbing, Edema, Left Upper Extrem (trace) and Edema, Left Lower Extrem (trace)
Skin: Warm and Dry
Neuro: Awake, Alert, Oriented, No Motor Deficits (No new motor deficits) and Nonfocal/Grossly Intact
Psych: Calm
[2024-08-01] MEDS: ATIVAN 0.5 MG IV (15:20)
[2024-08-01] MEDS: NSS (PRESERVATIVE FREE) 0.25 ML IV (15:21)
--- NOTE | 2024-08-01 17:48 | W.PN.CD ---
Today's Communication / Plan
-
MRI noted
stable for discharge from cardiology perspective
favor restarting eliquis if deemed safe from neuro
Impression / Plan
-
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
nursing facility because of acute onset of hallucinations. Given her recent STEMI, troponin elevation is likely residual resolving myocardial injury versus nonischemic myocardial injury given endocarditis and CVA. Additionally, she had a report in
a prior echocardiogram about mitral valve anterior leaflet vegetation, but we did not see this on her echocardiogram here. Pathology from her cath is suggestive that she may have had a septic emboli to her RCA and now given new CT findings concern
for possible septic emboli to her head.
Alterned mental status with concern for CVA
- cerebellar lesion noted on initial CT, MRI today not suggestive of acute CVA
- Per Neuro was holding DAPT pending MRI results, will defer to them but at this point appears safe to restart given lack of e/o acute CVA
CAD status post RCA STEMI July 22
- Continue DAPT holding Eliquis for now given concern for possible hemorrhagic conversion, restart when able
- Continue statin
- current troponin elevation likely non-ischemic myocardial injury, no chest pain
MV endocarditis
- reported history of large anterior MV veg, not seen on post PCI recent echo or echo here, likely embolized to her coronary causing recent STEMI as path report of aspirate material consistent with vegetation tissue
- echo below --> no clear evidence of endocarditis though mitral calcification makes it hard to exclude vegetation on TTE, very poor surgical candidate would defer GIANLUCA at this point unless surgery planned
- cont abx
- now growth on BCx
- apical blowing murmur on exam, stable, no CHF sx
AF
- holding ELiquis given concern for septic emboli HRs controlled -> Resume once OK from neuro perspective (at which point would drop asa and do plavix/eliquis)
- cont amio
HFpEF
- transition to home PO
- no SOB, examines euvolemic
CHB s/p PPM
- paced rhythm
CKD
- trend
anemia
- stable
Subjective: feeling well
Echo July 302024: CONCLUSIONS
Normal LV size and function.
LVEF is 55-60% by visual estimation. Basal to mid inferior wall hypokinesis.
Normal RV size and function.
Dense mitral annular calcification cannot rule out vegetation. Moderate mitral
regurgitation.
TAVR. Álvarez Annabella 26. Peak/mean gradients are 16/10mmHg. No aortic
regurgitation is seen.
Estimated pulmonary artery pressure of 41 mmHg. Assuming a right atrial
pressure of 3 mmHg.
Compared to prior from July 24, 2024, estimated PASP is now slightly higher at
41 mmHg, previously 36 mmHg.
Echo July 24 2024: CONCLUSIONS
Normal biventricular size and global systolic function. Left ventricular
ejection fraction is 55-60% by volumetric assessment.
Basal to mid inferior and inferolateral hypokinesis.
Moderate mitral regurgitation.
Well seated normally functioning bioprosthetic aortic valve(S/p 26 mm Álvarez
Annabella transcatheter aortic valve replacement).
Compared to the prior on 08/04/2023, the regional wall motion abnormalities
appear new and moderate mitral regurgitation is now seen.
Physical Exam
Vital Signs/Labs
Vital Signs
Temp Pulse Resp BP Pulse Ox
36.5 C 70 15 103/59 96
08/01/24 11:15 08/01/24 10:06 08/01/24 10:06 08/01/24 10:06 08/01/24 10:06
07/31/24 08/01/24 08/02/24
06:59 06:59 06:59
Actual Weight 78.8 kg 79.9 kg
08/01/24 04:19
08/01/24 04:19
LAB Results
07/29/24 07/30/24 07/30/24
23:06 03:36 09:51
Troponin I 2.360 H* 2.180 H* 1.940 H*
07/30/24
15:47
Troponin I Cancelled
Physical Exam
Constitutional: No acute distress
Respiratory: Respiratory effort normal
Neuro/Psych: AO x 3
Data Reviewed
-
Date of Service: August 01, 2024
Medical Decision Making: Reviewed Test Results
X-Ray/CT/US/MRI/NUC/PET: Image Personally Visualized and interpreted
Labs: Labs Reviewed by me
[2024-08-01] MEDS: REMERON 7.5 MG PO (21:32)
[2024-08-01] MEDS: LIPITOR 40 MG PO (21:32)
[2024-08-02] VITALS (13 sets, daily range): BP systolic 96–139; BP diastolic 54–78; PULSE 65–70; O2SAT 98; BMI 27.5; BMI 28.8
[2024-08-02] MEDS: AMPICILLIN 108 MG IV ×5 (00:33→23:09)
[2024-08-02] MEDS: METHOCARBAMOL PO (04:17)
[2024-08-02] MEDS: TYLENOL PO (04:17)
[2024-08-02 04:38] LABS: Hematocrit 26.1 % (37.0-47.0); Hemoglobin 8.5 g/dL (12.0-16.0); Mean Corp Hgb Conc. 32.6 g/dL (33.0-37.0); Mean Corpuscular Hgb 30.9 pg (27.0-31.0); Mean Corpuscular Volume 94.9 fL (81.0-99.0); Mean Platelet Volume 9.9 fL (7.4-10.4); Platelet Count 207 10^3/uL (130-400); Red Blood Cell Count 2.75 10^6/uL (4.20-5.40); Red Cell Dist. Width 15.5 % (11.5-14.5); White Blood Cell Count 5.8 10^3/uL (4.8-10.8)
[2024-08-02 05:04] LABS: Blood Urea Nitrogen 20 mg/dl (7-17); Carbon Dioxide 25 mmol/L (22-30); Chloride 106 mmol/L (98-107); Estimated Creatinine Clearance 33 ml/min; Glucose 76 mg/dl (70-99); Potassium 3.3 mmol/L (3.5-5.1); Sodium 137 mmol/L (135-145); eGFR 40.05
--- NOTE | 2024-08-02 08:11 | W.PN.NEURO.1 ---
Today's Communication / Plan
-
Discontinue DAPT, until after MRI and return to apixaban immediately, from neurological perspective
Neuro Assessment/Plan
Assessment
MRI of the brain clarified that the left cerebellar lesion was chronic in appearance and no evidence of septic emboli
Change in mental status most likely secondary to toxic metabolic encephalopathy
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
Distal symmetric large fiber polyneuropathy
Plan
Discontinue DAPT, until after MRI and return to apixaban immediately
Goal of normotension
Goal of normoglycemia
Rehabilitation evaluations
Will follow as needed
Subjective/Objective
Subjective Data
Date of Service: August 02, 2024
Objective Data
Vital Signs
Temp Pulse Resp BP Pulse Ox
36.6 C 60 18 115/62 97
08/02/24 08:10 08/02/24 06:00 08/02/24 06:00 08/02/24 06:00 08/01/24 17:00
Lab Results
08/02/24 04:22
08/02/24 04:22
Sodium 137 mmol/L (135-145) 08/02/24 04:22
Potassium 3.3 mmol/L (3.5-5.1) L 08/02/24 04:22
BUN 20 mg/dl (7-17) H 08/02/24 04:22
Glucose 76 mg/dl (70-99) 08/02/24 04:22
Calcium 8.0 mg/dl (8.4-10.2) L 08/02/24 04:22
Vitamin B12 900 pg/ml (239-931) 07/31/24 04:50
Patient Allergies
No Known Allergies Allergy (Verified 07/22/24 18:33)
Past History
Past History
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
ED Past Surgical History: Cardiac
Social History
Tobacco: Non-smoker
Alcohol: None
Drug: None
Personal:
Family History
Family History: Other (Reviewed and noncontributory)
Medications
-
Medications:
Generic Name Dose Route Start Last Admin
Trade Name Freq PRN Reason Stop Dose Admin
Acetaminophen 1,000 mg 07/30/24 00:00 08/02/24 04:17
Acetaminophen 500 Mg Tablet PO 08/27/24 00:00 Not Given
Q8 MAURILIO
Alprazolam 0.5 mg 07/30/24 08:00 08/01/24 08:19
Alprazolam 0.5 Mg Tablet PO 08/27/24 07:59 0.5 mg
DAILY MAURILIO Administration
Amiodarone HCl 100 mg 07/30/24 08:00 08/01/24 08:19
Amiodarone 200 Mg Tablet PO 08/27/24 07:59 100 mg
DAILY MAURILIO Administration
Aspirin 81 mg 08/01/24 10:00 08/01/24 10:46
Aspirin 81 Mg (Enteric Coated) Tablet PO 08/29/24 09:59 81 mg
DAILY MAURILIO Administration
Atorvastatin Calcium 40 mg 07/29/24 22:00 08/01/24 21:32
Atorvastatin (Lipitor) 40 Mg Tablet PO 08/26/24 21:59 40 mg
HS MAURILIO Administration
Bisacodyl 10 mg 07/29/24 21:47
Bisacodyl 10 Mg Rectal Suppository RECTAL 08/26/24 21:46
DAILYPRN PRN
if no bm in 8hr after MOM
Ceftriaxone Sodium 2,000 mg 07/29/24 20:00 08/01/24 20:18
Ceftriaxone 2,000 Mg/20 Ml Vial IV 2,000 mg
Q12H MAURILIO Administration
Clopidogrel Bisulfate 75 mg 07/30/24 08:00 08/01/24 08:19
Clopidogrel 75 Mg Tablet PO 08/27/24 07:59 75 mg
DAILY MAURILIO Administration
Ferrous Sulfate 325 mg 07/30/24 08:00 08/01/24 08:19
Ferrous Sulfate 325 Mg Tablet PO 08/27/24 07:59 325 mg
DAILY MAURILIO Administration
Furosemide 20 mg 07/31/24 08:00 07/31/24 08:26
Furosemide 20 Mg Tablet PO 08/28/24 07:59 20 mg
MoWeFr@0800 MAURILIO Administration
Ampicillin Sodium 2,000 mg/ 108 mls @ 108 mls/hr 07/29/24 18:00 08/02/24 06:17
Sodium Chloride IV 108 mls
Q6H MAURILIO Administration
Lidocaine 1 patch 07/30/24 08:00 08/01/24 08:20
Lidocaine 4% Topical Patch TOPICAL 08/27/24 07:59 1 patch
DAILY MAURILIO Administration
Protocol
Lidocaine 1 patch 08/01/24 12:30 08/01/24 13:12
Lidocaine 4% Topical Patch TOPICAL 08/29/24 12:29 1 patch
DAILY MAURILIO Administration
Protocol
Methocarbamol 500 mg 07/30/24 00:00 08/02/24 04:17
Methocarbamol 500 Mg Tablet PO 08/27/24 00:00 Not Given
Q8 MAURILIO
Metoprolol Succinate 25 mg 07/30/24 08:00 08/01/24 08:19
Metoprolol 25 Mg Extended Release Tablet PO 08/27/24 07:59 25 mg
DAILY MAURILIO Administration
Mirtazapine 7.5 mg 07/29/24 22:00 08/01/24 21:32
Mirtazapine 7.5 Mg Regular Release Tablet PO 08/26/24 21:59 7.5 mg
HS MAURILIO Administration
Oxycodone HCl 5 mg 07/29/24 21:47
Oxycodone 5 Mg Regular Release Tablet PO 08/12/24 21:46
Q4HPRN PRN
severe pain
Pantoprazole Sodium 40 mg 07/30/24 08:00 08/01/24 08:20
Pantoprazole 40 Mg Delayed Release Tablet PO 08/27/24 07:59 40 mg
DAILY MAURILIO Administration
Patch Removal 1 patch 07/30/24 20:00 08/01/24 20:18
Remove Lidocaine Patch REMOVE 08/27/24 19:59 1 patch
DAILY@2000 MAURILIO Administration
Polyethylene Glycol 17 grams 08/01/24 12:30
Polyethylene Glycol Powder 17 Grams Packet PO 08/27/24 07:59
DAILY PRN
constipation
Sennosides 17.2 mg 08/01/24 12:30
Sennosides (Senokot) 8.6 Mg Tablet PO 08/26/24 21:46
BID PRN
constipation
Sodium Biphosphate/Sodium Phosphate 118 ml 07/29/24 21:47
Fleet Phosphate Enema (Adult) 135 Ml Bottle RECTAL 08/26/24 21:46
DAILYPRN PRN
if no bm 8hr after suppository
Sodium Chloride 0 flush 07/29/24 18:00
Sodium Chloride 0.9% (Flush) Syringe IV 08/26/24 17:59
PER PROTOCOL MAURILIO
Sterile Water 20 ml 07/29/24 20:00 08/01/24 20:21
Sterile Water For Injection 20 Ml Vial IV 08/26/24 19:59 20 ml
Q12 MAURILIO Administration
[2024-08-02] MEDS: PACERONE 100 MG PO (08:22)
[2024-08-02] MEDS: TOPROL XL 25 MG PO (08:23)
[2024-08-02] MEDS: PROTONIX 40 MG PO (08:23)
[2024-08-02] MEDS: METHOCARBAMOL 500 MG PO ×3 (08:23→23:09)
[2024-08-02] MEDS: ASPIR LOW (ENTERIC COATED) 81 MG PO (08:23)
[2024-08-02] MEDS: XANAX 0.5 MG PO (08:23)
[2024-08-02] MEDS: FEOSOL 325 MG PO (08:23)
[2024-08-02] MEDS: PLAVIX 75 MG PO (08:23)
[2024-08-02] MEDS: STERILE WATER FOR INJECTION 20 ML IV ×2 (08:24→20:59)
[2024-08-02] MEDS: ROCEPHIN 2000 MG IV ×2 (08:24→20:59)
[2024-08-02] MEDS: TYLENOL 1000 MG PO ×3 (08:24→23:09)
[2024-08-02] MEDS: LIDOCAINE 4% PATCH 1 PATCH TOPICAL ×2 (08:25)
--- NOTE | 2024-08-02 08:32 | PTCARENOTE ---
Patient received from wire hanger. Patient resting comfortably in bed. AAO, VSS. No events overnight. Some complaints of pain in lower back, which appears to be chronic. No testing scheduled at this time. Possible discharge today, if not
tomorrow. Call morales in reach.
[2024-08-02] MEDS: LASIX 20 MG PO (08:43)
--- NOTE | 2024-08-02 09:01 | W.PN.HOSP.TC ---
Addendum entered and electronically signed by Esvin Hernandez MD 08/02/24 15:51:
Seen and examined by me independently in collaboration with the medical biller/coder Dr. Rodrigues.
Lab data and imaging data reviewed.
Addendum as below :
Patient without further hallucinations or any new neurological events.
Nonfocal neurologically. MRI of the brain shows no evidence of acute stroke. Unclear if her hallucination is part of her medication related or other reasons but with no acute stroke and no changes to antibiotic regimen we will plan on discharge
back to rehab today.
Continue with antibiotics as planned before by ID at [facility].
Also deemed stable from cardiology standpoint for discharge. Patient was back on Plavix and Eliquis.
Total time of discharge 35 minutes.
Original Note:
Today's Communication/Plan
-
Restart Eliquis
Continue IV abx
Assessment / Plan
Assessment / Plan
Encephalopathy. Resolved. No hallucinations or confusion noted
MRI negative for acute stroke.
There was initial concern for embolic stroke but MRI with no acute abnormality.
- MRI: No acute intracranial abnormality or hemodynamically significant stenosis found
- EEG normal
- Okay to discontinue DAPT and switch to clopidogrel only, and resume Eliquis
- Normal b12/folate, TSH
- Appreciate neuro, cards, ID input
STEMI:
07/26, s/p RCA stent
- Antiplatelet monotherapy and resumption of Eliquis
- Appreciate neurology and cardiology's input
Endocarditis/discitis/epidural abscess:
- Echo with dense mitral calcification - cannot rule out vegetation
- Continue long-term IV antibiotics with ampicillin Rocephin. Blood cultures negative.
- Appreciate infectious disease input
Troponin elevation,
- Likely type II NSTEMI in the setting of recent STEMI
- Peaked at 2.4 with downtrend. No further trend
Atrial fibrillation and known history of complete heart block s/p PPM
- Continue amiodarone and beta-sue
- Resume Eliuis
Chronic HFpEF
Does not appear fluid overloaded.
- continue home lasix regimen
CKD stage IIIb
Baseline creatinine around 1.3-1.4
- Avoid nephrotoxins
- Avoid hypotension
- Monitor urinary output
DVT prophylaxis: Eliquis
SCDs
Code status: DNR/DNI
Anticipated Discharge: Today
Subjective/Interval History
-
Date of Service: August 02, 2024
No acute events overnight. Was notified by RN of tele leads malfunctioning. Normal tracings with v-paced rhythm, but HR readings showing bradycardia even to 0. Patient remained asymptomatic, awake, alert, oriented and conversing normally. Manually
taken HR 72bpm. RN to replace leads.
Objective Data
-
Labs:
Laboratory Results
08/02/24
04:22
WBC 5.8
Hgb 8.5 L
Hct 26.1 L
Plt Count 207
Sodium 137
Potassium 3.3 L
Chloride 106
Carbon Dioxide 25
BUN 20 H
Creatinine 1.3 H
Glucose 76
Calcium 8.0 L
Vital Signs:
Vital Signs
Temp Pulse Resp BP Pulse Ox
97.9 F 65 18 126/68 97
08/02/24 08:10 08/02/24 08:22 08/02/24 06:00 08/02/24 08:22 08/01/24 17:00
Review of Systems
-
History Source: Patient
Respiratory: Denies Trouble Breathing
Cardiac: Denies Chest Pain, Palpitations or Syncope
Abdomen/GI: Denies Abdominal Pain, Nausea, Vomiting, Diarrhea or Constipated
Genitourinary: Denies Dysuria or Difficulty Voiding
Neuro: Denies Dizzy
Psych: Reports Other (no visual or auditory hallucinations)
Physical Exam
-
General: Well Developed, Well Nourished, No Apparent Distress and Comfortable
HEENT: Normocephalic, Atraumatic and Moist Mucous Membranes
Respiratory: Clear to Auscultation and Non Labored Respirations; Negative Wheezes, Rales, Rhonchi or Crackles
Cardiac: Regular Rhythm and S1/S2; Negative Murmur, Rub or Calf Tenderness
GI: Soft, Nontender, Nondistended and Normal Bowel Sounds
Genito-urinary: No Costovertebral Tender
Skin: Warm and Dry
Neuro: Awake, Alert, Oriented, No Motor Deficits and Nonfocal/Grossly Intact; Negative Slurred Speech or Facial Droop
Psych: Calm and Other (no hallucinations)
[2024-08-02] MEDS: ELIQUIS 2.5 MG PO ×2 (12:08→20:58)
[2024-08-02] MEDS: KCL 40 MEQ PO (12:08)
--- NOTE | 2024-08-02 12:38 | W.PN.ID1 ---
Date of Service
Date of Service: August 02, 2024
Today's Communication
Continue Ampicillin 2g IV q6 and ceftriaxone 2g IV q12h x 6-8 weeks (from 07/06/24), as per Christine Carlson ID.
Follow-up with [facility] ID.
ID will sign off.
Assessment / Plan
# Acute change in mental status resolved
# Ischemic brain infarct ruled out by MRI
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
# Recent STEMI s/p RCA stent (07/22/24) . Per cardiology RCA thrombus may have been vegetation.
# hx TAVR, PPM
-blood cx'sx2 neg.
- MRI brain negative CVA.
- TTE: Dense mitral annular calcification cannot rule out vegetation. Moderate mitral regurgitation.
- Continue Ampicillin 2g IV q6 and ceftriaxone 2g IV q12h x 6-8 weeks (from 07/06/24), as per Christine Carlson ID.
[facility]
ID will sign off.
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
HTN
HLD
DM
E. faecalis MV endocarditis, L2-L4 osteo/epidural abscess currently on amp/ceftriaxone (see 07/29 Consult Note for cortes detail)
CAD s/p PTCA with stenting (07/22/2024)
A-fib (on Eliquis)
PPM placement
Aortic stenosis s/p TAVR (06/2023)
GERD
CKD 3
Depression
Hx breast cancer s/p Bilateral mastectomy
Chief Complaint
-: Other (Endocarditis)
Subjective / Review of Systems
Feels well. No complaints.
Vital Signs / Physical Exam
Vital Signs
Vital Signs
Temp Pulse Resp BP Pulse Ox
97.6 F 65 18 126/68 97
08/02/24 11:13 08/02/24 08:22 08/02/24 06:00 08/02/24 08:22 08/01/24 17:00
Physical Exam
Constitutional: No Acute Distress and Comfortable
Cardiovascular: Regular Rate, S1/S2, Murmur (axilla) and Other (RCW PPM site no erythema)
Pulmonary: Clear
Gastrointestinal: Soft, Non Tender, Non Distended and Normal Bowel Sounds
Extremities: Negative Edema
Musculoskeletal: Negative Spinal Tenderness
Neurological: AO x 3
Lines: PICC (RIJ no erythema)
Objective Data
Lab Data
Lab Results
08/02/24 04:22
08/02/24 04:22
ESR 82 mm/hour (0-20) H 07/29/24 11:54
Estimated Creat Clear 33 ml/min 08/02/24 04:22
Lactic Acid 1.2 mmol/L (0.7-2.0) 07/29/24 11:55
Total Bilirubin 0.6 mg/dl (0.2-1.3) 07/29/24 11:54
AST 26 U/L (14-36) 07/29/24 11:54
ALT 14 U/L (0-35) 07/29/24 11:54
Alkaline Phosphatase 144 U/L (38-126) H 07/29/24 11:54
C-Reactive Protein 41.60 mg/L (0.0-10.00) H 07/29/24 11:54
Most recent labs reviewed.
Micro Results:
07/29/24 12:15 Blood Culture - Preliminary
Blood/Venous No Growth in 4 days- Final report to follow
07/29/24 11:54 Blood Culture - Preliminary
Blood/Venous No Growth in 4 days- Final report to follow
07/29/24 11:54 Influenza Types A & B (NILS) - Final
Nasal Swab Negative for Influenza A & B, NAAT
Negative results must be combined with clinical observations
and patient history.
Nucleic Acid Amplification test (NAAT)performed on the
[employer] platform.
07/29/[address]: 1.2 cm focal region of asymmetric low attenuation in the peripheral left cerebellar hemisphere which is most suggestive of cytotoxic edema or encephalomalacia from an ischemic infarct (more likely acute to subacute than chronic).
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
08/01/24 Brain MRI: No acute intracranial abnormality noted. No focal hemodynamically significant stenosis, aneurysm or occlusion.
--- NOTE | 2024-08-02 14:34 | CM ---
Addendum entered by Josie Cardoza RN 08/02/24 16:29:
Met with patient and son Jarad; IMM completed.
Ambulance arranged for 13:00 tomorrow.
Plan [facility] by ambulance tomorrow at 1pm.
Original Note:
Patient from [facility] with Dx STEMI 07/26, Endocarditis/discitis/epidural abscess, Troponin elevation Likely type II NSTEMI. Room air. Receiving IV Ampicillin, IV ceftriaxone. PT/OT; assist of 2, recommend skilled rehab. Per nurse;
forgetful.
Script for IV Ampicillin, IV ceftriaxone received from Dr Jack.
Met with patient and spoke with son Jarad;
both agree to [facility] tomorrow once insurance approves.
Son has been busy helping his father at home who is in hospice.
Jarad reports that the other siblings do not help either the patient or the .
Jarad confirms that he will be able to assist his mother again once she returns home, and he understands that she will likely need supervision due to her cognitive status.
Spoke with Hetal, [facility] [employer];
-request for [facility] for rehab and IV Abx is approved, auth # [id number], skilled level 2/subacute level, from 08/03 to 08/07. NR 08/07.
- request for Acute [facility] ambulance is approved, auth # [id number].
Spoke with Conrad, [facility]; referral updated in [facility] with clinical and script for IV Abx.
They spoke with son and accepted the patient.
Insurance Auth info provided.
They are able to accept the patient tomorrow and prefer 1pm transport time.
The ph for report [phone], fax [phone].
Ambulance requested with community development aide for 1pm tomorrow.
Plan [facility] by ambulance tomorrow, 1pm requested.
[2024-08-02] MEDS: ROXICODONE 5 MG PO (20:58)
[2024-08-02] MEDS: REMERON 7.5 MG PO (20:59)
[2024-08-02] MEDS: LIPITOR 40 MG PO (20:59)
[2024-08-03] VITALS (11 sets, daily range): BP systolic 91–134; BP diastolic 38–95; BMI 28.3
[2024-08-03] MEDS: AMPICILLIN 108 MG IV ×2 (05:21→12:37)
[2024-08-03 05:41] LABS: Hematocrit 27.8 % (37.0-47.0); Hemoglobin 9.2 g/dL (12.0-16.0); Mean Corp Hgb Conc. 33.1 g/dL (33.0-37.0); Mean Corpuscular Hgb 31.2 pg (27.0-31.0); Mean Corpuscular Volume 94.2 fL (81.0-99.0); Mean Platelet Volume 10.3 fL (7.4-10.4); Platelet Count 243 10^3/uL (130-400); Red Blood Cell Count 2.95 10^6/uL (4.20-5.40); Red Cell Dist. Width 15.4 % (11.5-14.5); White Blood Cell Count 8.4 10^3/uL (4.8-10.8)
[2024-08-03 06:01] LABS: Blood Urea Nitrogen 21 mg/dl (7-17); Calcium 8.5 mg/dl (8.4-10.2); Carbon Dioxide 25 mmol/L (22-30); Chloride 106 mmol/L (98-107); Estimated Creatinine Clearance 31 ml/min; Glucose 81 mg/dl (70-99); Potassium 3.7 mmol/L (3.5-5.1); Sodium 138 mmol/L (135-145); eGFR 36.64
--- NOTE | 2024-08-03 06:20 | PTCARENOTE ---
No acute changes overnight. NIHS 3. pt slightly forgetful. V-paced on tele. Medicated with PRN oxycodone for chronic back pain. swallowing pills w/o issues. pt able to sleep. tolerating iv abx. PICC line dressing intact, +blood return. incont of
urine. No BM. repositioned throughout the night. LUE +2 edema, elevated on pillow. pt unable to state when the swelling started. call morales and tray table within reach. Plan to discharge this afternoon @1300.
[2024-08-03] MEDS: ELIQUIS 2.5 MG PO (07:56)
[2024-08-03] MEDS: LIDOCAINE 4% PATCH 1 PATCH TOPICAL ×2 (07:56→07:57)
[2024-08-03] MEDS: FEOSOL 325 MG PO (07:56)
[2024-08-03] MEDS: METHOCARBAMOL 500 MG PO (07:57)
[2024-08-03] MEDS: PACERONE 100 MG PO (07:58)
--- NOTE | 2024-08-03 07:58 | W.PN.HOSP.TC ---
Addendum entered and electronically signed by Esvin Hernandez MD 08/03/24 14:46:
Seen and examined by me independently in collaboration with the medical instrument cable fabricator.
Lab data and imaging data reviewed.
Addendum as below :
No overnight events.
Remains stable for discharge to rehab.
To complete IV diuretics as suggested by ID at the rehab.
Total time of discharge 35 minutes
Original Note:
Today's Communication/Plan
-
Okay to discharge today. Continue IV abx
Assessment / Plan
Assessment / Plan
Encephalopathy. Resolved. No further hallucinations or confusion noted.
Unclear etiology
MRI negative for acute stroke.
There was initial concern for embolic stroke but MRI with no acute intracranial abnormality or hemodynamically significant stenosis found.
- EEG normal
- Continue Clopidogrel
- Normal b12/folate, TSH
- Appreciate neuro, cards, ID input
Left arm swelling:
Mild. soft. No tenderness/warmth/pain. Likely from blood pressure cuff, IV site and dependent edema.
- Arm elevation, relocate BP cuff to other limb
STEMI:
07/26, s/p RCA stent
- Antiplatelet monotherapy and resumption of Eliquis
- Appreciate neurology and cardiology's input
Endocarditis/discitis/epidural abscess:
- Echo with dense mitral calcification - cannot rule out vegetation
- Continue long-term IV antibiotics with ampicillin Rocephin. Blood cultures negative.
- Appreciate infectious disease input
Troponin elevation
- Peaked at 2.4 with downtrend. No further trend
Atrial fibrillation and known history of complete heart block s/p PPM
- Continue amiodarone and beta-sue
- Continue Eliquis
Chronic HFpEF
Does not appear fluid overloaded.
- continue home lasix regimen
CKD stage IIIb
At baseline creatinine around 1.3-1.4
- Avoid nephrotoxins
- Avoid hypotension
- Monitor urinary output
DVT prophylaxis: Eliquis
SCDs
Code status: DNR/DNI
Anticipated Discharge: Today
Subjective/Interval History
-
Date of Service: August 03, 2024
No acute overnight event. Loose stool overnight. Pt reports feeling well.
Objective Data
-
Labs:
Laboratory Results
08/03/24
05:20
WBC 8.4
Hgb 9.2 L
Hct 27.8 L
Plt Count 243
Sodium 138
Potassium 3.7
Chloride 106
Carbon Dioxide 25
BUN 21 H
Creatinine 1.4 H
Glucose 81
Calcium 8.5
Vital Signs:
Vital Signs
Temp Pulse Resp BP Pulse Ox
97.9 F 70 17 101/52 99
08/03/24 07:26 08/03/24 06:00 08/03/24 06:00 08/03/24 06:00 08/03/24 06:00
I&O
08/02/24 08/03/24 08/04/24
06:59 06:59 06:59
Intake Total 216 / 216
Balance 216 / 216
Review of Systems
-
History Source: Patient
Constitutional: Denies No Appetite
Respiratory: Denies Trouble Breathing
Cardiac: Denies Chest Pain or Palpitations
Abdomen/GI: Denies Abdominal Pain, Nausea, Vomiting, Diarrhea or Constipated
Neuro: Denies Dizzy, Headache or Lightheadedness
Physical Exam
-
General: Well Nourished, No Apparent Distress and Comfortable
HEENT: Normocephalic, Atraumatic, Moist Mucous Membranes and Anicteric
Respiratory: Clear to Auscultation (anteriorly) and Non Labored Respirations; Negative Wheezes, Rales, Rhonchi or Crackles
Cardiac: Regular Rhythm and S1/S2; Negative Murmur, Rub or Calf Tenderness
GI: Soft, Nontender, Nondistended and Normal Bowel Sounds
Musculoskeletal: No Clubbing, No Cyanosis, Edema, Left Upper Extrem and Other (No tenderness, weakness, warmth or restricted ROM of LUE)
Skin: Warm and Dry
Neuro: Awake, Alert, Oriented, No Motor Deficits and Nonfocal/Grossly Intact
Psych: Calm
[2024-08-03] MEDS: PROTONIX 40 MG PO (07:59)
[2024-08-03] MEDS: PLAVIX 75 MG PO (07:59)
[2024-08-03] MEDS: ROCEPHIN 2000 MG IV (07:59)
[2024-08-03] MEDS: STERILE WATER FOR INJECTION 20 ML IV (08:07)
[2024-08-03] MEDS: TOPROL XL 25 MG PO (08:07)
[2024-08-03] MEDS: TYLENOL 1000 MG PO (08:09)
[2024-08-03] MEDS: XANAX 0.5 MG PO (08:10)
--- NOTE | 2024-08-03 08:33 | PTCARENOTE ---
Patient received from rn night. Patient resting comfortably in bed. AAO, VSS. No events overnight. Continues with some complaints of pain in lower back, which appears to be chronic. No testing scheduled at this time. Discharge today. Call
morales in reach.
--- NOTE | 2024-08-03 10:40 | W.PN.ID1 ---
Date of Service
Date of Service: August 03, 2024
Today's Communication
Continue Ampicillin 2g IV q6 and ceftriaxone 2g IV q12h x 6-8 weeks. Tentative end date 08/31/24
Check weekly CBC/diff, CMP, CRP, ESR
Follow-up with Beatrice ID.
Assessment / Plan
# Acute change in mental status resolved
# Ischemic brain infarct ruled out by MRI
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
# Recent STEMI s/p RCA stent (07/22/24) . Per cardiology RCA thrombus may have been vegetation.
# hx TAVR, PPM
-blood cx'sx2 neg.
- MRI brain negative CVA.
- TTE: Dense mitral annular calcification cannot rule out vegetation. Moderate mitral regurgitation.
- Continue Ampicillin 2g IV q6 and ceftriaxone 2g IV q12h x 6-8 weeks. Tentative end date 08/31/24
Check weekly CBC/diff, CMP, CRP, ESR
Script submitted to dependency case manager.
- Follow-up with Beatrice ID.
ID will sign off.
# Conditions [employer]
HTN
HLD
DM
E. faecalis MV endocarditis, L2-L4 osteo/epidural abscess currently on amp/ceftriaxone (see 07/29 Consult Note for cortes detail)
CAD s/p PTCA with stenting (07/22/2024)
A-fib (on Eliquis)
PPM placement
Aortic stenosis s/p TAVR (06/2023)
GERD
CKD 3
Depression
Hx breast cancer s/p Bilateral mastectomy
Chief Complaint
-: Other (Endocarditis)
Subjective / Review of Systems
No complaints.
Vital Signs / Physical Exam
Vital Signs
Vital Signs
Temp Pulse Resp BP Pulse Ox
97.9 F 70 17 134/95 99
08/03/24 07:26 08/03/24 08:07 08/03/24 06:00 08/03/24 08:07 08/03/24 06:00
Physical Exam
Constitutional: No Acute Distress and Comfortable
Cardiovascular: Regular Rate, S1/S2, Murmur (axilla) and Other (RCW PPM site no erythema)
Pulmonary: Clear
Gastrointestinal: Soft, Non Tender, Non Distended and Normal Bowel Sounds
Extremities: Negative Edema
Musculoskeletal: Negative Spinal Tenderness
Neurological: AO x 3
Lines: PICC (RIJ no erythema)
Objective Data
Lab Data
Lab Results
08/03/24 05:20
08/03/24 05:20
ESR 82 mm/hour (0-20) H 07/29/24 11:54
Estimated Creat Clear 31 ml/min 08/03/24 05:20
Lactic Acid 1.2 mmol/L (0.7-2.0) 07/29/24 11:55
Total Bilirubin 0.6 mg/dl (0.2-1.3) 07/29/24 11:54
AST 26 U/L (14-36) 07/29/24 11:54
ALT 14 U/L (0-35) 07/29/24 11:54
Alkaline Phosphatase 144 U/L (38-126) H 07/29/24 11:54
C-Reactive Protein 41.60 mg/L (0.0-10.00) H 07/29/24 11:54
Most recent labs reviewed.
Micro Results:
07/29/24 12:15 Blood Culture - Preliminary
Blood/Venous No Growth in 4 days- Final report to follow
07/29/24 11:54 Blood Culture - Preliminary
Blood/Venous No Growth in 4 days- Final report to follow
07/29/24 11:54 Influenza Types A & B (NILS) - Final
Nasal Swab Negative for Influenza A & B, NAAT
Negative results must be combined with clinical observations
and patient history.
Nucleic Acid Amplification test (NAAT)performed on the
[employer] platform.
07/29/[address]: 1.2 cm focal region of asymmetric low attenuation in the peripheral left cerebellar hemisphere which is most suggestive of cytotoxic edema or encephalomalacia from an ischemic infarct (more likely acute to subacute than chronic).
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
08/01/24 Brain MRI: No acute intracranial abnormality noted. No focal hemodynamically significant stenosis, aneurysm or occlusion.
--- NOTE | 2024-08-03 13:23 | PTCARENOTE ---
Patient discharged to [facility]. Report called to Maryanne. Patient transferred via EMS. Patient left with all known belongings.
--- NOTE | 2024-08-03 17:03 | CM ---
Patient from [facility] with Dx recent STEMI 07/26, Endocarditis/discitis/epidural abscess/osteo. Room air. Receiving IV Ampicillin, IV ceftriaxone. PT/OT; assist of 2, recommend skilled rehab.
Spoke with Nazia, [facility];
they are ready to receive the patient today and are aware of 1pm scheduled transport time.
Met with patient and son Jarad armenta; both agreed to [facility] today by ambulance. IMM completed.
Plan [facility] by ambulance today at 1pm.
--- NOTE | 2024-08-03 18:33 | W.DCSUMMARY ---
Discharge Summary
Discharge Data
Date of Admission: 07/29/24
Date of Discharge: 08/03/24
-
Pending Results: No
Hospital Course
Discharging Physician : Beth Rodrigues MD., Esvin Hernandez MD.
Disposition : SNF
Primary care physician : Radha Vasquez DO.
Principal Discharge diagnosis : Encephalopathy
Chronic Discharge diagnosis :
1. ST elevated myocardial infarction with stent to right coronary
artery.
2. Anemia.
3. Hx of Enterococcus faecalis bacteremia
4. [place] mitral valve endocarditis
5. Epidural abscess/osteomyelitis L2-L3-L4 area.
6. HFpEF
7. Essential hypertension.
8. Chronic kidney disease stage III.
9. Atherosclerosis/hyperlipidemia.
10. Depression.
11. Aortic stenosis s/p TAVR
12. History of breast cancer.
13. Gastroesophageal reflux disease.
Hospital Course : 88 year old female with the above past medical history presented to [facility] ED from [facility] for encephalopathy of unclear etiology. On arrival vitals were stable, CBC significant for hemoglobin 9.6, creatinine 1.3, otherwise
unremarkable.
Initial head CT with suspicion for acute stroke. There was concern for embolic etiology given recent Enterococcus bacteremia and negative mitral valve endocarditis. However, MRI negative for acute stroke. EEG normal. Normal b12/folate, TSH. Blood
cultures were negative. Patient's mental status quickly returned to baseline and she remained stable throughout stay.
Hip and back pain related to recent history of epidural abscess/osteomyelitis was controlled with oral and topical analgesics. Home medications were held/continued as appropriate throughout stay, and she was discharged to SNF with no significant
changes to prior medications.
Recommendations:
- Continue Ampicillin 2g IV q6h and ceftriaxone 2g IV q12h through 08/31/2024.
- Check weekly CBC, CMP, CRP, ESR.
- Follow-up with [facility].
Important imaging findings :
Head CT 07/29/2024:
1. 1.2 cm focal region of asymmetric low attenuation in the peripheral left cerebellar hemisphere which is most suggestive of cytotoxic edema or encephalomalacia from an ischemic infarct (more likely acute to subacute than chronic).
2. 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
3. Mild white matter leukoaraiosis in the frontal lobes.
4. Mild diffuse cerebral and cerebellar volume loss.
Chest x-ray :
1. Right anterior chest wall PICC line in place with the catheter tip projecting over the SVC.
2. Mild interstitial and alveolar cardiogenic pulmonary edema.
3. Mild cardiomegaly.
4. Previous TAVR.
5. Left-sided cardiac pacemaker in place.
6. Previous bilateral mastectomies.
7. Diffuse bone demineralization.
CT head without IV contrast :
1. 1.3 cm focal region of low attenuation involving cortical hollis matter in the posterolateral left cerebellar hemisphere which is unchanged from 07/29/2024. Diagnostic possibilities are (1) cytotoxic edema or encephalomalacia from an acute,
subacute, or chronic infarct or (2) other less likely etiologies (tumor, demyelinating disease, or infection).
2. 1.3 cm meningioma in the right side of the posterior fossa causing mild mass effect on the right cerebellar hemisphere.
3. Mild diffuse cerebral and cerebellar volume loss.
4. Mild periventricular white matter leukoaraiosis.
MR Brain Without Contrast, MA Neck With Contrast, MA [place] 08/01/2024:
No acute intracranial abnormality noted.
No focal hemodynamically significant stenosis, aneurysm or occlusion.
Discharge Plan
-
Patient Disposition: Prison/SNF
Discharge Diagnosis/Procedures: Encephalopathy, mitral valve endocarditis, epidural abscess osteomyelitis
Condition: Good
Diet: Low Cholesterol and Low Sodium
Activity: As tolerated
Driving Restrictions: As prior to admission
Bathing Restrictions: None
Activity Restrictions/Additional Instructions:
Continue Ampicillin 2g IV q6 and ceftriaxone 2g IV q12h through 08/31/2024
Check weekly CBC, CMP, CRP, ESR.
Follow-up with [facility].
Referrals:
Radha Vasquez, DO [Family Provider] - in less than 1 week
Prescriptions:
Continued
polyethylene glycol 3350 [Miralax] 17 gram Powder In Packet
17 g PO DAILY
furosemide 20 mg Tablet
20 mg PO MOWEFR
Rx Instructions:
mon, wed, fri
metoprolol succinate 25 mg Tablet Extended Release 24 Hr
25 mg PO DAILY
mirtazapine 7.5 mg Tablet
7.5 mg PO HS
pantoprazole 40 mg Tablet,Delayed Release (Dr/Ec)
40 mg PO DAILY
acetaminophen 500 mg Tablet
1,000 mg PO Q8H
magnesium hydroxide [Milk of Magnesia] 400 mg/5 mL Suspension
2,400 mg PO DAILYPRN PRN (Reason: if no bm x2 days)
bisacodyl [Dulcolax (bisacodyl)] 10 mg Suppository
10 mg MO DAILYPRN PRN (Reason: if no bm in 8hr after MOM)
Fleet Enema 19-7 gram/118 mL Enema
118 ml MO DAILYPRN PRN (Reason: if no bm 8hr after suppository)
sennosides [Aydee-mandy] 8.6 mg Tablet
17.2 mg PO BID Qty: 0 0RF
clopidogrel 75 mg Tablet
75 mg PO DAILY Qty: 0 0RF
oxycodone 5 mg Tablet
5 mg PO Q4HPRN PRN (Reason: severe pain) Qty: 12 0RF
amiodarone 200 mg Tablet
100 mg PO DAILY Qty: 0 0RF
ceftriaxone 1 gram Recon Soln
2 g IV Q12H Qty: 0 0RF
Rx Instructions:
take until 05/27/25
Eliquis 2.5 mg Tablet
2.5 mg PO BID Qty: 0 0RF
ferrous sulfate 325 mg (65 mg iron) tablet
325 mg PO DAILY Qty: 60 0RF
methocarbamol 500 mg Tablet
500 mg PO Q8H
zinc oxide 20 % Ointment
1 applic TOPICAL TID
zinc oxide 20 % Ointment
1 applic TOPICAL Q2HPRN PRN (Reason: incontinent)
alprazolam [Xanax] 0.5 mg Tablet
0.5 mg PO DAILY
cyclobenzaprine 5 mg Tablet
5 mg PO DAILY
cyclobenzaprine 5 mg Tablet
5 mg PO DAILYPRN PRN (Reason: give if first tablet doesnot work with an hour)
atorvastatin 40 mg tablet
40 mg PO HS
lidocaine 4 % adhesive patch,medicated
1 patch topical DAILY
sodium chloride 0.9 % (flush) Syringe
10 ml IV Q8H
Rx Instructions:
every shift for line patency before and after each driver medic; every shift for PICC care flush when not administering med
ampicillin sodium 2 gram recon soln
2 g IV Q6H Qty: 0 0RF
Rx Instructions:
take from 07/27/24 through 08/31/24
Discharge Orders:
Discharge Patient (As Directed); Ordered 08/03/24
Ordered By: Beth Rodrigues
Discharge Date and Time
Discharge Date/Time: 08/03/24 13:44
Print Language: MARTINIQUAIS
== END 2024-08-03 13:44 | DRG 70 ==
LOC: IMU 16:23
PROVIDERS: Radiology Diagnostic Radiology; Student in an Organized Health Care Education/Training Program; ADMITTING PHYSICIAN Hospitalist; ATTENDING PHYSICIAN Internal Medicine; CONSULT PHYSICIAN Internal Medicine Cardiovascular Disease; CONSULT PHYSICIAN Internal Medicine Infectious Disease; CONSULT PHYSICIAN Psychiatry & Neurology Neurology; EMERGENCY PHYSICIAN Emergency Medicine; FAMILY PHYSICIAN Internal Medicine
PROC: 02HV33Z Insertion of Infusion Device into Superior Vena Cava, Percutaneous Approach (ICD-10-PCS; 2024-07-29)
DX: G93.40 Encephalopathy, unspecified (principal); I21.4 Non-ST elevation (NSTEMI) myocardial infarction; I13.0 Hypertensive heart and chronic kidney disease with heart failure and stage 1 through stage 4 chronic kidney disease, or unspecified chronic kidney disease; I50.32 Chronic diastolic (congestive) heart failure; I25.2 Old myocardial infarction; I48.0 Paroxysmal atrial fibrillation; Z79.01 Long term (current) use of anticoagulants; Z95.0 Presence of cardiac pacemaker; N18.32 Chronic kidney disease, stage 3b; Z66 Do not resuscitate; D63.1 Anemia in chronic kidney disease; Z85.3 Personal history of malignant neoplasm of breast; D32.9 Benign neoplasm of meninges, unspecified; E11.22 Type 2 diabetes mellitus with diabetic chronic kidney disease; F41.9 Anxiety disorder, unspecified; I70.0 Atherosclerosis of aorta; Z95.2 Presence of prosthetic heart valve; I25.10 Atherosclerotic heart disease of native coronary artery without angina pectoris; K59.00 Constipation, unspecified; Z90.13 Acquired absence of bilateral breasts and nipples; Z79.02 Long term (current) use of antithrombotics/antiplatelets; E78.00 Pure hypercholesterolemia, unspecified; Z79.899 Other long term (current) drug therapy; E11.40 Type 2 diabetes mellitus with diabetic neuropathy, unspecified; F32.A Depression, unspecified; G89.29 Other chronic pain; I35.0 Nonrheumatic aortic (valve) stenosis; K21.9 Gastro-esophageal reflux disease without esophagitis; Z98.61 Coronary angioplasty status; Z11.52 Encounter for screening for COVID-19
CPT/HCPCS: 93308; 51701; 70450; 70544; 70548; 70551; 71045; 80048; 80053; 81003; 81015; 82607; 82746; 83605; 84443; 84484; 85025; 85027; 85652; 86140; 87040; 87502; 87811; 92526; 92610; 93005; 93321; 93325; 94760; 95816; 97110; 97116; 97129; 97163; 97167; 97530; 97535; 99285; A9585